=== PATIENT | female | born 1945 ===

== ENCOUNTER 2024-02-25 19:47 | Inpatient (IN) | payer OTHER, SELFPAY ==
[2024-02-25 21:52] VITALS: BP 149/86; PULSE 96; RESP 18; TEMP 36.6; O2SAT 98
[2024-02-25 23:18] VITALS: BMI 22.4
--- NOTE | 2024-02-26 04:37 | PC.ADMIT ---
Patient arrived on unit 02/25/24@2014 with a 12b, patient oriented to person and time of year, irritable, negative, resistive to care but redirectable, she is a 79yo transfer from [facility], d/t not caring for herself and not taking medications at [facility]. patient had been treated twice for lice and showered twice at [facility], they report she had been showering and taking her medications, patient declined shower saying she was dry and itchy and had showered a lot recently. skin check revealed no lice or eggs though patient has cuts, scabs and lesions all over body, 1 x 3/4 lesion on left breast, and an untreated breast mass c/f malignancy, patient was resistive to assessment saying i have a bad memory, why can't you remember that but was able to answer many questions, she reports no providers or contacts, per patient report no Hx ETOH or illicit drugs, is on 5-min safety checks and contracts for safety
[2024-02-26] MEDS: predniSONE 20 MG TABLET 60 MG PO (10:23)
[2024-02-26] MEDS: diphenhydrAMINE HCL 25 MG CAPSULE PO ×3 (10:23→22:09)
--- NOTE | 2024-02-26 11:53 | P.CONHOSP_ITS ---
History of Present Illness Data of Consult Service Date: 02/26/24 Primary Care Provider: Unknown Physician HPI Reason for consult: Admission H&P PMFSH Social History Household Members: Other Household Members Other:: patient homeless Housing: Homeless Do you presently have visiting nurse or other home services: No Patient Tobacco Use Status: Never used Tobacco Smoked in Last 30 Days: No Patient Interested in Nicotine Replacement: No Patient Given Instructions on How to Stop Smoking: No Second Hand Smoke Exposure: No Use of substances other than those prescribed or required for medical reasons: No Currently Displaying Signs/Symptoms of Drug Intoxication Withdrawal: No Any prior treatment program specific to substance use: No Have you been hit, kicked, punched, or otherwise hurt by someone within the past year? If so, by whom?: No Do you feel safe in your current relationship?: No Current Relationship Is there a partner from a previous relationship who is making you feel unsafe now?: No Are you made to feel afraid or neglected: No Spiritual Healthcare Practices: I don't remember anything, I keep telling you this ! Advance Directives: No Advance Directives Information Provided: No Do you have thoughts of harming others: None Do you have a plan to hurt others: No Plan Recently lost weight without trying: Unsure Eating poorly because of decreased appetite: No Nutrition Risks: No Nutritional Risk Patient : No : No Poor oral hygiene: No Meds Allergies Allergy/AdvReac Type Severity Reaction Status Date / Time No Known Allergies Allergy Verified 02/25/24 21:07 Active Medications: Current Medications Acetaminophen (Acetaminophen 325 Mg Tablet) 650 mg PO Q6H PRN PRN Reason: Headache/Pain Mild Scale (1-3) Al Hydroxide/Mg Hydroxide (Magnesium Hydrox/Alum Hydrox 30 Ml Oral.Susp) 30 ml PO Q6H PRN PRN Reason: Heartburn/Nausea Diphenhydramine HCl (Diphenhydramine Hcl 25 Mg Capsule) 25 mg PO Q6H PRN PRN Reason: Itching Last Admin: 02/26/24 10:23 Dose: 25 mg Magnesium Hydroxide (Milk Of Magnesia 30 Ml Oral.Susp) 30 ml PO DAILY PRN PRN Reason: Constipation Nicotine Polacrilex (Nicotine Polacrilex 2 Mg Gum) 4 mg BUCCAL Q2H PRN PRN Reason: Nicotine Cravings Olanzapine (Olanzapine 5 Mg Tablet) 5 mg PO Q4H PRN PRN Reason: agitation Prednisone (Prednisone 20 Mg Tablet) 60 mg PO DAILY [facility] Stop: 02/28/24 09:01 Last Admin: 02/26/24 10:23 Dose: 60 mg Prednisone (Prednisone 20 Mg Tablet) 40 mg PO DAILY [facility] Stop: 03/02/24 09:01 Prednisone (Prednisone 20 Mg Tablet) 20 mg PO DAILY [facility] Stop: 03/05/24 09:01 Trazodone HCl (Trazodone Hcl 50 Mg Tablet) 50 mg PO BEDTIME MRX1 PRN PRN Reason: Insomnia Home Medications ?Medication ?Instructions ?Recorded ?Confirmed ?Last Taken ?Type haloperidol 2 mg tablet 2.5 mg 02/25/24 Unknown History haloperidol 5 mg tablet mg 02/25/24 02/23/24 09:00 History melatonin 5 mg tablet mg 02/25/24 Unknown History Physical Exam Vital Signs and Narrative: Vital Signs: Last Vital Signs Temp 97.9 F 02/25/24 21:52 Pulse 96 02/25/24 21:52 Resp 18 02/25/24 21:52 BP 149/86 H 02/25/24 21:52 Pulse Ox 98 02/25/24 21:52 O2 Del Method Room Air 02/25/24 21:52 BMI result Body Mass Index 22.4 Assessment and Plan Plan Pruritus/rash
--- NOTE | 2024-02-26 13:04 | PHA.MEDREC ---
Pharmacy Consult ? Medication Reconciliation Pharmacy has completed the medication reconciliation. confirmed that pt is on no home medications outpatient
--- NOTE | 2024-02-26 15:13 | P.HPPS_ITS ---
HPI Date of Service: 02/26/24 Chief Complaint: Unspecified Psychotic Disorder Sources of Information: patient interviewed and chart reviewed Additional Sources of Information: Records reviewed from [facility] case discussed with hospitalist consult Patient is seen at 11:00 reviewed with hospitalist at 11:30 02/26/2024 The patient is minimally informational HPI Subjective Notes: [place] Warning and Section 12B Narrative: The patient is a 79-year-old female referred from [facility]. The patient is unwilling to give information will answer to her name the patient reportedly has a history of paranoia and there is a question a neurocognitive disorder. While on the inpatient unit the patient had been ordered Haldol 5 mg daily and 2.5 mg q.6 hours p.r.n. and had also been ordered olanzapine 5 mg dissolvable tablet neither 1 of which was reportedly taken. The patient had been at a care home she has a reported history of a psychotic disorder and also and port of an untreated breast mass with concern for malignancy that has not been treated. She was sent to the hospital [facility] because of inability to care for herself refusing showers with poor appetite refusing medical workup and refusing medication. She was noted to have head and body lice in the community and was brought to the hospital. Her CBC and basic chemistries were generally unremarkable. Patient was referred for inpatient psychiatric treatment secondary to inability to care for self psychotic denial regarding her medical condition. Patient was living in a care home called [facility] and was refusing medical treatment for lice infestation Reportedly patient has not been able to care for herself for an extended period of time in the community has refused any workup of reported breast mass. Some notes state there is history of psychosis questionable history OCD reported vitamin-C deficiency history of mood disorder with psychosis. No reported history of suicide attempts. Questionable history of aggression when at a care home in March. She has been ordered Cogentin and Haldol in the past Past Psychiatric History: Patient with reported history of psychosis no details known. Reported history of multiple psychiatric hospitalizations Medical Evaluation Reviewed: Yes Patient with both hair and body lice despite to permethrin treatments at [facility]. Patient unable and willing to give any information regarding her medical history. Denies any history of breast lesion denies that she has had lice but does accept that she has been having itching. Was prescribed ivermectin which she accepted [facility] Medical History (Updated 02/26/24 @ 20:39 by Fortunato Clayton MD) Unspecified mood [affective] disorder Adult failure to thrive Psychosis Breast mass Family History: Not known Social History: Did state she has a son no other information was given Substance History: Unknown Trauma History: Unknown Diagnostics Vital Signs (24Hr): Vital Signs - 24 hr 02/25/24 21:52 Temperature 97.9 F Pulse Rate 96 Respiratory Rate 18 Blood Pressure 149/86 H Pulse Oximetry 98 Oxygen Delivery Method Room Air BMI result Body Mass Index 22.4 Meds/Allergies Meds Home Medications ?Medication ?Instructions ?Recorded ?Confirmed ?Type No Known Home Meds 02/26/24 02/26/24 History Allergies Allergies Allergy/AdvReac Type Severity Reaction Status Date / Time No Known Allergies Allergy Verified 02/25/24 21:07 Mental Status Exam Mental Status Exam Narrative: Patient seen in her room lying in bed. There multiple excoriations on her lower extremities. She keeps asking this credit underwriter to leave she was aware that she was in a hospital knew the year and the month. She was quite guarded wrapped up in blankets mood appeared depressed her affect was irritable constricted. She was not pressured she would not engage in conversation denied SI or HI denied hallucinations insight significantly impaired denied having any medical issues would not give any narrative history. Would not discuss her medical condition. I did explain to the patient that she had been admitted on a section 12 B she did state she has no psychiatric history she was not aggressive or combative Assessment & Plan Assessment & Plan (1) Unspecified mood [affective] disorder: Status: Acute Code(s): F39 - Unspecified mood [affective] disorder (2) Psychotic affective disorder: Status: Acute Code(s): F39 - Unspecified mood [affective] disorder (3) Adult failure to thrive: Status: Acute Code(s): R62.7 - Adult failure to thrive Plan Patient appears depressed anxious psychotic level of denial regarding her medical condition. Unclear if this is related to a cognitive disorder or more longstanding. She has been prescribed antipsychotics in the past I do not know if she has ever been compliant with treatment. She was no longer able to be managed in the community due to a lack of self-care she was at a women's care home called [facility]. Reportedly the patient may have malignancy that has not been addressed. Further information should be obtained as possible from her PCP and any family or other information as possible. Patient may require a guardian. There is no reported healthcare proxy would benefit from further cognitive workup I do not see a head CT scan or MRI B12 folate TSH reported vitamin-C deficiency. Patient is admitted on a section 12 B will most likely need to file for civil commitment for patient's safety and stabilization. Patient educated on: diagnosis, medication risk/benefits and medical condition Informed Consent: does not understand and further education needed Reason for continued inpatient stay Substantial Risk for: inability to function, rapid decompensation and med/psych decompensation Statement Statement: I have reviewed the history and physical and performed a pertinent examination on my patient. No changes have occurred unless specified. If the History and Physical was not performed prior to admission, the Hospitalist's service will be consulted for completing the admission physical. Medical history reviewed from mass General case reviewed with hospitalist and discussed medical treatment plan 11:30 Time Spent With Patient Time: Total time managing care of this patient today ____ minutes.
--- NOTE | 2024-02-26 17:35 | HO.PM.IMCN ---
History of Present Illness Data of Consult Service Date: 02/26/24 Primary Care Provider: Unknown Physician [facility] Reason for consult: Admission H&P, Lice infestation evaluation Patient is a 79-year-old female with a PMH significant for left breast mass found in 2021 concerning for malignancy which she has refused workup and treatment for, failure to thrive, and longstanding history of psychosis and treatment refusal apparently no known significant PMH who was admitted to [facility] for failure to thrive and inability to take care of herself in the community. Patient had been staying at [facility] and was initially brought to [facility] on a section 12 due to paranoia, irritability, refusing to take a shower for months, and decreased oral intake. Was also noted by outpatient provider to have a lice infestation which she refused treatment for. While at [facility] patient refused all treatment and needed to be physically restrained for labs and for treatment of lice infestation with permethrin 5% lotion that apparently was applied from head to toe. Was supposed to be washed off after 8-14 hours, but patient refused to shower and permethrin application stayed on for around 72 hours. Unclear whether patient received 2nd treatment. Medical consult for admission HPI and reassessment for lice infestation. Patient continues to report all-over body pruritus, unable/unwilling to specify any areas that are better or worse. Patient is a very irritable and recalcitrant during interview and exam, though does show this provider to bugs on her bed clothes that she states causes her to itch. Upon examination these appear to be lice. Patient otherwise has no acute medical complaints and refuses any further evaluation to the point where she begins yelling. Of note, nursing indicates another actively psychotic patient on the unit climbed into the patient's bed earlier in the day for a few minutes. Bedding and patient's clothing have since been changed. Review of Systems Review of Systems: Negative except for that which is stated in the [facility] Medical History (Updated 02/26/24 @ 18:01 by DEMETRIUS Dc) Adult failure to thrive Psychosis Breast mass Social History Household Members: Other Household Members Other:: patient homeless Housing: Homeless Do you presently have visiting nurse or other home services: No Patient Tobacco Use Status: Never used Tobacco Smoked in Last 30 Days: No Patient Interested in Nicotine Replacement: No Patient Given Instructions on How to Stop Smoking: No Second Hand Smoke Exposure: No Use of substances other than those prescribed or required for medical reasons: No Currently Displaying Signs/Symptoms of Drug Intoxication Withdrawal: No Any prior treatment program specific to substance use: No Have you been hit, kicked, punched, or otherwise hurt by someone within the past year? If so, by whom?: No Do you feel safe in your current relationship?: No Current Relationship Is there a partner from a previous relationship who is making you feel unsafe now?: No Are you made to feel afraid or neglected: No Spiritual Healthcare Practices: I don't remember anything, I keep telling you this ! Advance Directives: No Advance Directives Information Provided: No Do you have thoughts of harming others: None Do you have a plan to hurt others: No Plan Recently lost weight without trying: Unsure Eating poorly because of decreased appetite: No Nutrition Risks: No Nutritional Risk Patient : No : No Poor oral hygiene: No Meds Allergies Allergy/AdvReac Type Severity Reaction Status Date / Time No Known Allergies Allergy Verified 02/25/24 21:07 Active Medications: Current Medications Acetaminophen (Acetaminophen 325 Mg Tablet) 650 mg PO Q6H PRN PRN Reason: Headache/Pain Mild Scale (1-3) Al Hydroxide/Mg Hydroxide (Magnesium Hydrox/Alum Hydrox 30 Ml Oral.Susp) 30 ml PO Q6H PRN PRN Reason: Heartburn/Nausea Diphenhydramine HCl (Diphenhydramine Hcl 25 Mg Capsule) 25 mg PO Q6H PRN PRN Reason: Itching Last Admin: 02/26/24 17:05 Dose: 25 mg Ivermectin (Ivermectin 3 Mg Tablet) 9 mg PO ONCE ONE Stop: 03/04/24 09:01 Magnesium Hydroxide (Milk Of Magnesia 30 Ml Oral.Susp) 30 ml PO DAILY PRN PRN Reason: Constipation Nicotine Polacrilex (Nicotine Polacrilex 2 Mg Gum) 4 mg BUCCAL Q2H PRN PRN Reason: Nicotine Cravings Olanzapine (Olanzapine 5 Mg Tablet) 5 mg PO Q4H PRN PRN Reason: agitation Trazodone HCl (Trazodone Hcl 50 Mg Tablet) 50 mg PO BEDTIME MRX1 PRN PRN Reason: Insomnia Home Medications ?Medication ?Instructions ?Recorded ?Confirmed ?Last Taken ?Type No Known Home Meds 02/26/24 02/26/24 Unknown History Physical Exam Vital Signs and Narrative: Vital Signs: Last Vital Signs Temp 97.9 F 02/25/24 21:52 Pulse 96 02/25/24 21:52 Resp 18 02/25/24 21:52 BP 149/86 H 02/25/24 21:52 Pulse Ox 98 02/25/24 21:52 O2 Del Method Room Air 02/25/24 21:52 BMI result Body Mass Index 22.4 Patient is seen resting comfortably in bed where she appears disheveled, unkempt. Breathing unlabored. No acute distress. Cranial nerves 2-12 appear grossly intact bilaterally. Patient refuses full examination. Assessment and Plan (1) Medical clearance for psychiatric admission: Status: Acute Plan Patient is a 79-year-old female with a PMH significant for left breast mass found in 2021 concerning for malignancy which she has refused workup and treatment for, failure to thrive, and longstanding history of psychosis and treatment refusal apparently no known significant PMH who was admitted to [facility] for failure to thrive and inability to take care of herself in the community. Medical consult for admission history and physical. Mood disorder Plan as per Psychiatry Lice infestation 2 adult lice found on the patient while laying in bed Apparently has had a longstanding and extensive lice infestation that she has refused treatment for Was restrained at [facility] where she was treated with permethrin lotion from head to feet, stayed on for 72 hours after patient refused to shower after application Unclear if patient received 2nd dosing Given patient's medication noncompliance, difficulty showering, and need for physical and chemical restraints before applying permethrin lotion, will instead treat patient with ivermectin 9 mg p.o. x1 dose now with another dose to be administered in 1 week Patient should be encouraged to shower and have all bedding and clothing removed, washed, and replaced As for other patient with exposure to patients bed, he should be showered as quickly as possible and have his clothing removed, changed, and laundered Patient should be kept in isolation at this time until can verify no longer actively infested Breast mass Follow up outpatient Patient is otherwise not on any home medications and noncompliant with any treatments. Will sign off for now. Thank you for allowing us to participate in the care of this patient. Please re-consult if any acute issue or need arises.
[2024-02-26 20:00] VITALS: BP 112/57; PULSE 80; RESP 16; TEMP 36.6; O2SAT 98
[2024-02-26] MEDS: traZODone HCL 50 MG TABLET PO (20:11)
[2024-02-26] MEDS: OLANZapine ODT 10 MG TAB.RAPDIS 5 MG TRANSLINGU (22:13)
[2024-02-27] MEDS: Acetaminophen 325 MG TABLET 650 MG PO (00:07)
[2024-02-27] MEDS: traZODone HCL 50 MG TABLET PO (00:08)
[2024-02-27 08:00] VITALS: BP 108/64; PULSE 82; RESP 18; TEMP 36; O2SAT 97
[2024-02-27 08:48] LABS: Alanine Aminotransferase 17 U/L (0-31); Alkaline Phosphatase 61 U/L (39-117); Anion Gap 10 (12-20); Aspartate Amino Transferase 26 U/L (5-31); Bilirubin Total 0.4 mg/dL (0.0-1.0); Blood Urea Nitrogen 23 mg/dL (9-16); Calcium 8.8 mg/dL (8.4-10.2); Carbon Dioxide 27 mmol/L (22-29); Chloride 109 mmol/L (96-108); Cholesterol 181 mg/dL (<200); Creatinine Clr Calc Pharmacy 44.6; Estimated Glomerular Filt Rate > 60; Glucose Fasting 92 mg/dL (60-99); HDL Cholesterol 72 mg/dL (>40); LDL Cholesterol Calculated 95 mg/dL (<100); Potassium 3.7 mmol/L (3.3-5.1); Sodium 142 mmol/L (135-145); Total Protein 7.2 g/dL (6.5-8.0); Triglycerides 72 mg/dL (<150)
--- NOTE | 2024-02-27 10:27 | HO.PSYCHPN ---
Subjective Subjective Date of Service: 02/27/24 Reason For Visit: Unspecified Psychotic Disorder Subjective Notes: Section 12B Healthcare Proxy: No Guardianship: No Medical Problems Affecting Mental Status: No Interim History: Patient remains generally isolated in her rooms she is on contact precautions. She is eating some of her meals very limited in her interaction with others. Continues to deny all symptoms Medication Compliance: No Mental Status Exam Mental Status Exam Narrative: Patient seen in her room she is lying in bed wrapped and covers with her head also being covered. Patient answers in staccato brief answers. She is quite concrete poorly informational guarded. Mood she describes as fine her affect is quite constricted and appears apprehensive and depressed. She denies any psychotic symptoms thoughts of self-harm harm to others. She denies any concerns denies any thoughts or interest in workup regarding reported breast mass lesion. [facility] She will not give further narrative history or any family or other contact information she denies any history of psychiatric illness denies suicidality homicidality auditory hallucinations insight impaired judgment impaired by history impulse control intact Diagnostics Vital Signs (24Hr): Vital Signs - 24 hr 02/26/24 20:00 02/27/24 08:00 Temperature 97.9 F 96.8 F Pulse Rate 80 82 Respiratory Rate 16 18 Blood Pressure 112/57 L 108/64 Pulse Oximetry 98 97 Oxygen Delivery Method Room Air Room Air BMI result Body Mass Index 22.4 Labs 02/27/24 08:24 Labs: Laboratory Results - last 48 hr 02/27/24 08:24 Sodium 142 Potassium 3.7 Chloride 109 H Carbon Dioxide 27 Anion Gap 10 L BUN 23 H Creatinine 0.67 Estim Creat Clear Calc 44.6 Estimated GFR > 60 Fasting Glucose 92 Calcium 8.8 Total Bilirubin 0.4 AST 26 ALT 17 Alkaline Phosphatase 61 Total Protein 7.2 Albumin 4.0 Triglycerides 72 Cholesterol 181 LDL Cholesterol, Calc 95 HDL Cholesterol 72 Medications Medications Current Medications Acetaminophen (Acetaminophen 325 Mg Tablet) 650 mg PO Q6H PRN PRN Reason: Headache/Pain Mild Scale (1-3) Last Admin: 02/27/24 00:07 Dose: 650 mg Al Hydroxide/Mg Hydroxide (Magnesium Hydrox/Alum Hydrox 30 Ml Oral.Susp) 30 ml PO Q6H PRN PRN Reason: Heartburn/Nausea Diphenhydramine HCl (Diphenhydramine Hcl 25 Mg Capsule) 25 mg PO Q6H PRN PRN Reason: Itching Last Admin: 02/26/24 22:09 Dose: 25 mg Ivermectin (Ivermectin 3 Mg Tablet) 9 mg PO ONCE ONE Stop: 03/04/24 09:01 Magnesium Hydroxide (Milk Of Magnesia 30 Ml Oral.Susp) 30 ml PO DAILY PRN PRN Reason: Constipation Nicotine Polacrilex (Nicotine Polacrilex 2 Mg Gum) 4 mg BUCCAL Q2H PRN PRN Reason: Nicotine Cravings Olanzapine (Olanzapine 5 Mg Tablet) 5 mg PO Q4H PRN PRN Reason: agitation Olanzapine (Olanzapine Odt 10 Mg Tab.Rapdis) 5 mg TRANSLINGU BEDTIME HERNESTO Last Admin: 02/26/24 22:13 Dose: 5 mg Trazodone HCl (Trazodone Hcl 50 Mg Tablet) 50 mg PO BEDTIME MRX1 PRN PRN Reason: Insomnia Last Admin: 02/27/24 00:08 Dose: 50 mg Allergies Allergies Allergy/AdvReac Type Severity Reaction Status Date / Time No Known Allergies Allergy Verified 02/25/24 21:07 Assessment & Plan Assessment & Plan (1) Unspecified mood [affective] disorder: Status: Acute Code(s): F39 - Unspecified mood [affective] disorder (2) Psychotic affective disorder: Status: Acute Code(s): F39 - Unspecified mood [affective] disorder (3) Adult failure to thrive: Status: Acute Code(s): R62.7 - Adult failure to thrive Plan Patient appears depressed anxious psychotic level of denial regarding her medical condition. Unclear if this is related to a cognitive disorder or more longstanding. She has been prescribed antipsychotics in the past I do not know if she has ever been compliant with treatment. She was no longer able to be managed in the community due to a lack of self-care she was at a women's skilled nursing called [facility]. Reportedly the patient may have malignancy that has not been addressed. Further information should be obtained as possible from her PCP and any family or other information as possible. Patient may require a guardian. There is no reported healthcare proxy would benefit from further cognitive workup I do not see a head CT scan or MRI B12 folate TSH reported vitamin-C deficiency. Patient is admitted on a section 12 B will most likely need to file for civil commitment for patient's safety and stabilization. 02/27/2024 Patient on section 12 evaluate safety and ability to care for self in the community. Would benefit from getting additional information from PCP from a skilled nursing where reportedly she had refused treatment for lice and was minimally eating and drinking and was quite withdrawn. Patient appears depressed and withdrawn denies any history of psychiatric illness she did accept treatment for lice Monitor food and fluid intake Informed Consent: further education needed Reason for continued inpatient stay Substantial Risk for: inability to function, rapid decompensation and med/psych decompensation Time Spent With Patient Time: Total time managing care of this patient today ____ minutes.
--- NOTE | 2024-02-27 19:27 | PC.NURSE ---
Patient pleasant and cooperative. Contact precautions maintained.
[2024-02-27 20:00] VITALS: BP 112/75; PULSE 84; RESP 18; TEMP 36.6; O2SAT 97
--- NOTE | 2024-02-28 11:10 | PC.NURSE ---
Addendum entered by Nora Zarate RN 02/28/24 11:44: Dr Garcia made aware via tiger text Original Note: Marium is refusing the flu vaccine and all care today including meds and vital signs.
--- NOTE | 2024-02-28 13:56 | P.PNPSI_ITS ---
Subjective Subjective Date of Service: 02/28/24 Reason For Visit: Unspecified Psychotic Disorder Subjective Notes: Section 12B Interim History: The nursing staff reported the patient had body lice and we have seen the parasites on her clothes and bed sheets. Apparently she was already treated at the emergency room of [facility] but still she is symptomatic. The patient reported to the staff that she can not remember how come she in the here. On interview the patient reported that she is feeling itchy. She has refused treatment for her lice and we are discussing the case with administration since we can not force her medical treatment against her will in this setting. Mental Status Exam Mental Status Exam Patient Appearance: Appropriate and Unkempt Patient Orientation: Person and Situation Level of Consciousness: Awake and Appropriate Patient Behavior: Guarded and Passive Mood Description: Withdrawn Affect Description: Constricted Patient Cognition Impaired: Yes Ability to Follow Directions: Fair Speech Pattern: Clear Hallucinations: None Delusions: Not Present Thought Process: Distracted and Slowed Thinking Thought Content: positive for [place] and positive for Poverty of Content Judgement: Fair Diagnostics Vital Signs (24Hr): Vital Signs - 24 hr 02/27/24 20:00 Temperature 97.8 F Pulse Rate 84 Respiratory Rate 18 Blood Pressure 112/75 Pulse Oximetry 97 Oxygen Delivery Method Room Air BMI result Body Mass Index 22.4 Labs 02/27/24 08:24 Labs: Laboratory Results - last 48 hr 02/27/24 08:24 Sodium 142 Potassium 3.7 Chloride 109 H Carbon Dioxide 27 Anion Gap 10 L BUN 23 H Creatinine 0.67 Estim Creat Clear Calc 44.6 Estimated GFR > 60 Fasting Glucose 92 Calcium 8.8 Total Bilirubin 0.4 AST 26 ALT 17 Alkaline Phosphatase 61 Total Protein 7.2 Albumin 4.0 Triglycerides 72 Cholesterol 181 LDL Cholesterol, Calc 95 HDL Cholesterol 72 Medications Medications Current Medications Acetaminophen (Acetaminophen 325 Mg Tablet) 650 mg PO Q6H PRN PRN Reason: Headache/Pain Mild Scale (1-3) Last Admin: 02/27/24 00:07 Dose: 650 mg Al Hydroxide/Mg Hydroxide (Magnesium Hydrox/Alum Hydrox 30 Ml Oral.Susp) 30 ml PO Q6H PRN PRN Reason: Heartburn/Nausea Diphenhydramine HCl (Diphenhydramine Hcl 25 Mg Capsule) 25 mg PO Q6H PRN PRN Reason: Itching Last Admin: 02/26/24 22:09 Dose: 25 mg Ivermectin (Ivermectin 3 Mg Tablet) 9 mg PO ONCE ONE Stop: 03/04/24 09:01 Magnesium Hydroxide (Milk Of Magnesia 30 Ml Oral.Susp) 30 ml PO DAILY PRN PRN Reason: Constipation Nicotine Polacrilex (Nicotine Polacrilex 2 Mg Gum) 4 mg BUCCAL Q2H PRN PRN Reason: Nicotine Cravings Olanzapine (Olanzapine 5 Mg Tablet) 5 mg PO Q4H PRN PRN Reason: agitation Olanzapine (Olanzapine Odt 10 Mg Tab.Rapdis) 5 mg TRANSLINGU BEDTIME HERNESTO Last Admin: 02/27/24 20:12 Dose: Not Given Trazodone HCl (Trazodone Hcl 50 Mg Tablet) 50 mg PO BEDTIME MRX1 PRN PRN Reason: Insomnia Last Admin: 02/27/24 00:08 Dose: 50 mg Allergies Allergies Allergy/AdvReac Type Severity Reaction Status Date / Time No Known Allergies Allergy Verified 02/25/24 21:07 Assessment & Plan Assessment & Plan (1) Unspecified mood [affective] disorder: Status: Acute Code(s): F39 - Unspecified mood [affective] disorder (2) Psychotic affective disorder: Status: Acute Code(s): F39 - Unspecified mood [affective] disorder (3) Adult failure to thrive: Status: Acute Code(s): R62.7 - Adult failure to thrive Plan Patient appears depressed anxious psychotic level of denial regarding her medical condition. Unclear if this is related to a cognitive disorder or more longstanding. She has been prescribed antipsychotics in the past I do not know if she has ever been compliant with treatment. She was no longer able to be managed in the community due to a lack of self-care she was at a [facility] called [facility]. Reportedly the patient may have malignancy that has not been addressed. Further information should be obtained as possible from her PCP and any family or other information as possible. Patient may require a guardian. There is no reported healthcare proxy would benefit from further cognitive workup I do not see a head CT scan or MRI B12 folate TSH reported vitamin-C deficiency. Patient is admitted on a section 12 B will most likely need to file for civil commitment for patient's safety and stabilization. 02/27/2024 Patient on section 12 evaluate safety and ability to care for self in the community. Would benefit from getting additional information from PCP from a prison where reportedly she had refused treatment for lice and was minimally eating and drinking and was quite withdrawn. Patient appears depressed and withdrawn denies any history of psychiatric illness she did accept treatment for lice Monitor food and fluid intake. 02/27 We discussed the case with infectious control with treatment about her lies. The patient has refused treatment at this moment. Reason for continued inpatient stay Substantial Risk for: inability to function, rapid decompensation and med/psych decompensation Time Spent With Patient Time: Total time managing care of this patient today __20__ minutes.
[2024-02-28] MEDS: diphenhydrAMINE HCL 25 MG CAPSULE PO (14:01)
[2024-02-28 20:00] VITALS: BP 134/71; PULSE 92; RESP 16; TEMP 36.7; O2SAT 96
[2024-02-28] MEDS: OLANZapine ODT 10 MG TAB.RAPDIS 5 MG TRANSLINGU (20:50)
[2024-02-29] MEDS: diphenhydrAMINE HCL 25 MG CAPSULE PO (15:13)
--- NOTE | 2024-02-29 15:14 | PC.NURSE ---
Patient requested a pill for itch, she will not take the prescribed cream because she is allergic to all chemicals she said. dr. Garcia updated and new order for Benadryl obtained and given.
--- NOTE | 2024-02-29 16:08 | HO.PSYCHPN ---
Subjective Subjective Date of Service: 02/29/24 Reason For Visit: Unspecified Psychotic Disorder Subjective Notes: Section 12B Interim History: The nursing staff reported the patient took Benadryl p.r.n.. She had been noncompliant with all other medications she is confused and asking for paperwork to filed her taxes for [employer] [place]. She was paranoid against the social research assistant. Today we came with the staff who can speak Farsi and apparently the patient reported that she has been itchy, she was able to contract for safety. The occupational therapist engaged on some one-to-one and apparently the patient is more pleasant and cooperative. Even though we are going to filed for Section 7 and 8. She has body lice, she was been already treated but apparently we have to wait up to 7 days the parasites fell off from her. She is willing to take a shower here according to the staff who speaks Farsi Mental Status Exam Mental Status Exam Patient Appearance: Appropriate Patient Orientation: Person and Situation Level of Consciousness: Awake and Appropriate Patient Behavior: Guarded and Passive Mood Description: Withdrawn Affect Description: Constricted Patient Cognition Impaired: Yes Ability to Follow Directions: Good Speech Pattern: Clear Hallucinations: Auditory Delusions: Ideas of Reference Thought Process: Distracted and Slowed Thinking Thought Content: positive for [place] and positive for Poverty of Content Judgement: Fair Diagnostics Vital Signs (24Hr): Vital Signs - 24 hr 02/28/24 20:00 Temperature 98.1 F Pulse Rate 92 Respiratory Rate 16 Blood Pressure 134/71 Pulse Oximetry 96 Oxygen Delivery Method Room Air BMI result Body Mass Index 22.4 Labs 02/27/24 08:24 Medications Medications Current Medications Acetaminophen (Acetaminophen 325 Mg Tablet) 650 mg PO Q6H PRN PRN Reason: Headache/Pain Mild Scale (1-3) Last Admin: 02/27/24 00:07 Dose: 650 mg Al Hydroxide/Mg Hydroxide (Magnesium Hydrox/Alum Hydrox 30 Ml Oral.Susp) 30 ml PO Q6H PRN PRN Reason: Heartburn/Nausea Diphenhydramine HCl (Diphenhydramine Hcl 25 Mg Capsule) 25 mg PO Q4H PRN PRN Reason: Itching Last Admin: 02/29/24 15:13 Dose: 25 mg Ivermectin (Ivermectin 3 Mg Tablet) 9 mg PO ONCE ONE Stop: 03/04/24 09:01 Magnesium Hydroxide (Milk Of Magnesia 30 Ml Oral.Susp) 30 ml PO DAILY PRN PRN Reason: Constipation Multi-Ingred Cream/Lotion/Oil/Oint (Mineral Oil/Petrolatum,White 106 Gm Tube) 1 appl TOPICAL Q2H PRN; Protocol PRN Reason: affected areas of dry skin Nicotine Polacrilex (Nicotine Polacrilex 2 Mg Gum) 4 mg BUCCAL Q2H PRN PRN Reason: Nicotine Cravings Olanzapine (Olanzapine 5 Mg Tablet) 5 mg PO Q4H PRN PRN Reason: agitation Olanzapine (Olanzapine Odt 10 Mg Tab.Rapdis) 5 mg TRANSLINGU BEDTIME HERNESTO Last Admin: 02/28/24 20:50 Dose: 5 mg Trazodone HCl (Trazodone Hcl 50 Mg Tablet) 50 mg PO BEDTIME MRX1 PRN PRN Reason: Insomnia Last Admin: 02/27/24 00:08 Dose: 50 mg Allergies Allergies Allergy/AdvReac Type Severity Reaction Status Date / Time No Known Allergies Allergy Verified 02/25/24 21:07 Assessment & Plan Assessment & Plan (1) Unspecified mood [affective] disorder: Status: Acute Code(s): F39 - Unspecified mood [affective] disorder (2) Psychotic affective disorder: Status: Acute Code(s): F39 - Unspecified mood [affective] disorder (3) Adult failure to thrive: Status: Acute Code(s): R62.7 - Adult failure to thrive Plan Patient appears depressed anxious psychotic level of denial regarding her medical condition. Unclear if this is related to a cognitive disorder or more longstanding. She has been prescribed antipsychotics in the past I do not know if she has ever been compliant with treatment. She was no longer able to be managed in the community due to a lack of self-care she was at a women's senior care called [facility]. Reportedly the patient may have malignancy that has not been addressed. Further information should be obtained as possible from her PCP and any family or other information as possible. Patient may require a guardian. There is no reported healthcare proxy would benefit from further cognitive workup I do not see a head CT scan or MRI B12 folate TSH reported vitamin-C deficiency. Patient is admitted on a section 12 B will most likely need to file for civil commitment for patient's safety and stabilization. 02/27/2024 Patient on section 12 evaluate safety and ability to care for self in the community. Would benefit from getting additional information from PCP from a senior care where reportedly she had refused treatment for lice and was minimally eating and drinking and was quite withdrawn. Patient appears depressed and withdrawn denies any history of psychiatric illness she did accept treatment for lice Monitor food and fluid intake. 02/27 We discussed the case with infectious control with treatment about her lies. The patient has refused treatment at this moment. 02/28 we will continue with same treatment, we are going to filed for Section 7 and 8 since the patient can not verbalize her needs. Reason for continued inpatient stay Substantial Risk for: inability to function, rapid decompensation and med/psych decompensation Time Spent With Patient Time: Total time managing care of this patient today ___20_ minutes.
[2024-02-29 20:00] VITALS: BP 106/58; PULSE 73; RESP 16; TEMP 36.4; O2SAT 97
[2024-02-29] MEDS: OLANZapine ODT 10 MG TAB.RAPDIS 5 MG TRANSLINGU (20:41)
[2024-03-01 08:15] VITALS: BP 106/64; PULSE 91; RESP 20; TEMP 36.8; O2SAT 98
--- NOTE | 2024-03-01 11:50 | P.PNPSI_ITS ---
Subjective Subjective Date of Service: 03/01/24 Reason For Visit: Unspecified Psychotic Disorder Subjective Notes: Conditional Voluntary Interim History: The nursing staff reported the patient had been seclusive in her room, with blunted affect she ate 75% of her dinner refused vital signs she had been very quiet. On interview the patient agreed to sign a conditional voluntary. She agreed to use permethrin and showered later in the day. Mental Status Exam Mental Status Exam Patient Appearance: Disheveled and Unkempt Patient Orientation: Person Level of Consciousness: Inappropriate Patient Behavior: Guarded Mood Description: Withdrawn Affect Description: Blunted Patient Cognition Impaired: Yes Ability to Follow Directions: Fair Speech Pattern: Clear Hallucinations: None Delusions: Paranoid Ideation and Ideas of Reference Thought Process: Illogical and Slowed Thinking Thought Content: positive for [place] and positive for Thought Blocking Judgement: Poor Diagnostics Vital Signs (24Hr): Vital Signs - 24 hr 02/29/24 20:00 03/01/24 08:15 Temperature 97.6 F 98.2 F Pulse Rate 73 91 Respiratory Rate 16 20 Blood Pressure 106/58 L 106/64 Pulse Oximetry 97 98 Oxygen Delivery Method Room Air Room Air BMI result Body Mass Index 22.4 Labs 02/27/24 08:24 Medications Medications Current Medications Acetaminophen (Acetaminophen 325 Mg Tablet) 650 mg PO Q6H PRN PRN Reason: Headache/Pain Mild Scale (1-3) Last Admin: 02/27/24 00:07 Dose: 650 mg Al Hydroxide/Mg Hydroxide (Magnesium Hydrox/Alum Hydrox 30 Ml Oral.Susp) 30 ml PO Q6H PRN PRN Reason: Heartburn/Nausea Diphenhydramine HCl (Diphenhydramine Hcl 25 Mg Capsule) 25 mg PO Q4H PRN PRN Reason: Itching Last Admin: 02/29/24 15:13 Dose: 25 mg Ivermectin (Ivermectin 3 Mg Tablet) 9 mg PO ONCE ONE Stop: 03/04/24 09:01 Magnesium Hydroxide (Milk Of Magnesia 30 Ml Oral.Susp) 30 ml PO DAILY PRN PRN Reason: Constipation Multi-Ingred Cream/Lotion/Oil/Oint (Mineral Oil/Petrolatum,White 106 Gm Tube) 1 appl TOPICAL Q2H PRN; Protocol PRN Reason: affected areas of dry skin Nicotine Polacrilex (Nicotine Polacrilex 2 Mg Gum) 4 mg BUCCAL Q2H PRN PRN Reason: Nicotine Cravings Olanzapine (Olanzapine 5 Mg Tablet) 5 mg PO Q4H PRN PRN Reason: agitation Olanzapine (Olanzapine Odt 10 Mg Tab.Rapdis) 5 mg TRANSLINGU BEDTIME HERNESTO Last Admin: 02/29/24 20:41 Dose: 5 mg Trazodone HCl (Trazodone Hcl 50 Mg Tablet) 50 mg PO BEDTIME MRX1 PRN PRN Reason: Insomnia Last Admin: 02/27/24 00:08 Dose: 50 mg Allergies Allergies Allergy/AdvReac Type Severity Reaction Status Date / Time No Known Allergies Allergy Verified 02/25/24 21:07 Assessment & Plan Assessment & Plan (1) Unspecified mood [affective] disorder: Status: Acute Code(s): F39 - Unspecified mood [affective] disorder (2) Psychotic affective disorder: Status: Acute Code(s): F39 - Unspecified mood [affective] disorder (3) Adult failure to thrive: Status: Acute Code(s): R62.7 - Adult failure to thrive Plan Patient appears depressed anxious psychotic level of denial regarding her medical condition. Unclear if this is related to a cognitive disorder or more longstanding. She has been prescribed antipsychotics in the past I do not know if she has ever been compliant with treatment. She was no longer able to be managed in the community due to a lack of self-care she was at a women's longterm called [facility]. Reportedly the patient may have malignancy that has not been addressed. Further information should be obtained as possible from her PCP and any family or other information as possible. Patient may require a guardian. There is no reported healthcare proxy would benefit from further cognitive workup I do not see a head CT scan or MRI B12 folate TSH reported vitamin-C deficiency. Patient is admitted on a section 12 B will most likely need to file for civil commitment for patient's safety and stabilization. 02/27/2024 Patient on section 12 evaluate safety and ability to care for self in the community. Would benefit from getting additional information from PCP from a longterm where reportedly she had refused treatment for lice and was minimally eating and drinking and was quite withdrawn. Patient appears depressed and withdrawn denies any history of psychiatric illness she did accept treatment for lice Monitor food and fluid intake. 02/27 We discussed the case with infectious control with treatment about her lies. The patient has refused treatment at this moment. 02/28 we will continue with same treatment, we are going to filed for Section 7 and 8 since the patient can not verbalize her needs. she agreed to sign conditional voluntary. We will try to use permethrin treating now. Reason for continued inpatient stay Substantial Risk for: inability to function, rapid decompensation and med/psych decompensation Time Spent With Patient Time: Total time managing care of this patient today __20__ minutes.
[2024-03-01] MEDS: Permethrin 1 % Lotion 59 ML BTL 1 APPL TOPICAL (16:00)
[2024-03-01 20:00] VITALS: BP 107/65; PULSE 85; RESP 18; TEMP 36.7; O2SAT 97
[2024-03-01] MEDS: traZODone HCL 50 MG TABLET PO (20:53)
[2024-03-01] MEDS: OLANZapine ODT 10 MG TAB.RAPDIS 5 MG TRANSLINGU (20:53)
[2024-03-01] MEDS: diphenhydrAMINE HCL 25 MG CAPSULE PO (20:53)
[2024-03-02 07:00] VITALS: BMI 23.9
[2024-03-02 08:00] VITALS: BP 143/67; PULSE 78; RESP 18; TEMP 36; O2SAT 99
--- NOTE | 2024-03-02 12:24 | HO.WOUND ---
Wound Consult: Attempted 79yr old? female admitted to [facility] on 02/25/24 19:47 to the Geriatric Behavioral Health Unit - See progress notes and H&P for detailed history.? Wound consult placed for Left Breast wound present admission.?Arrival to unit and bedside with direct care nurse Ivana, the patient refused all assessment. She reports there was no injury and did not need my consultation. Therapeutic listening provided and reattempt to assess skin and provide help and aid. She began to get frustrated and refused all assessment, when asked to reassess at future time she refused. Direct care nurse and unit Clinical leader aware of refusal. Will attempt assessment early next week.
--- NOTE | 2024-03-02 13:20 | HO.PSYCHPN ---
Subjective Subjective Date of Service: 03/02/24 Reason For Visit: Unspecified Psychotic Disorder Subjective Notes: Conditional Voluntary Interim History: The nursing staff reported the patient cooperate very limited yesterday with the permethrin and the shower she is infested with lice and she is not allowing us to treat her. She has very poor insight into her condition. The social work assistant reported that we are going to try to get more collateral information, most likely she has a guardian or [facility] involvement and clear. On interview the patient refused to engage. I contact Dr. Thibodeaux and she reported that the patient had been receiving the optimal treatment for this condition. The social work assistant was able to contact [facility] and they do not have guardianship role years. Apparently she responded fairly well to Haldol so we are changing that today. Mental Status Exam Mental Status Exam Patient Appearance: Disheveled and Unkempt Patient Orientation: Person Level of Consciousness: Awake Patient Behavior: Guarded Mood Description: Withdrawn Affect Description: Blunted Patient Cognition Impaired: Yes Ability to Follow Directions: Poor Speech Pattern: Clear Hallucinations: Auditory Delusions: Paranoid Ideation and Ideas of Reference Thought Process: Distracted and Slowed Thinking Thought Content: positive for [place] and positive for Poverty of Content Judgement: Poor Diagnostics Vital Signs (24Hr): Vital Signs - 24 hr 03/01/24 20:00 03/02/24 08:00 Temperature 98.1 F 96.8 F Pulse Rate 85 78 Respiratory Rate 18 18 Blood Pressure 107/65 143/67 H Pulse Oximetry 97 99 Oxygen Delivery Method Room Air Room Air BMI result Body Mass Index 23.9 Labs 02/27/24 08:24 Medications Medications Current Medications Acetaminophen (Acetaminophen 325 Mg Tablet) 650 mg PO Q6H PRN PRN Reason: Headache/Pain Mild Scale (1-3) Last Admin: 02/27/24 00:07 Dose: 650 mg Al Hydroxide/Mg Hydroxide (Magnesium Hydrox/Alum Hydrox 30 Ml Oral.Susp) 30 ml PO Q6H PRN PRN Reason: Heartburn/Nausea Diphenhydramine HCl (Diphenhydramine Hcl 25 Mg Capsule) 25 mg PO Q4H PRN PRN Reason: Itching Last Admin: 03/01/24 20:53 Dose: 25 mg Ivermectin (Ivermectin 3 Mg Tablet) 9 mg PO ONCE ONE Stop: 03/04/24 09:01 Magnesium Hydroxide (Milk Of Magnesia 30 Ml Oral.Susp) 30 ml PO DAILY PRN PRN Reason: Constipation Multi-Ingred Cream/Lotion/Oil/Oint (Mineral Oil/Petrolatum,White 106 Gm Tube) 1 appl TOPICAL Q2H PRN; Protocol PRN Reason: affected areas of dry skin Nicotine Polacrilex (Nicotine Polacrilex 2 Mg Gum) 4 mg BUCCAL Q2H PRN PRN Reason: Nicotine Cravings Olanzapine (Olanzapine 5 Mg Tablet) 5 mg PO Q4H PRN PRN Reason: agitation Olanzapine (Olanzapine Odt 10 Mg Tab.Rapdis) 5 mg TRANSLINGU BEDTIME HERNESTO Last Admin: 03/01/24 20:53 Dose: 5 mg Trazodone HCl (Trazodone Hcl 50 Mg Tablet) 50 mg PO BEDTIME MRX1 PRN PRN Reason: Insomnia Last Admin: 03/01/24 20:53 Dose: 50 mg Allergies Allergies Allergy/AdvReac Type Severity Reaction Status Date / Time No Known Allergies Allergy Verified 02/25/24 21:07 Assessment & Plan Assessment & Plan (1) Unspecified mood [affective] disorder: Status: Acute Code(s): F39 - Unspecified mood [affective] disorder (2) Psychotic affective disorder: Status: Acute Code(s): F39 - Unspecified mood [affective] disorder (3) Adult failure to thrive: Status: Acute Code(s): R62.7 - Adult failure to thrive Plan Patient appears depressed anxious psychotic level of denial regarding her medical condition. Unclear if this is related to a cognitive disorder or more longstanding. She has been prescribed antipsychotics in the past I do not know if she has ever been compliant with treatment. She was no longer able to be managed in the community due to a lack of self-care she was at a women's [facility] called [facility]. Reportedly the patient may have malignancy that has not been addressed. Further information should be obtained as possible from her PCP and any family or other information as possible. Patient may require a guardian. There is no reported healthcare proxy would benefit from further cognitive workup I do not see a head CT scan or MRI B12 folate TSH reported vitamin-C deficiency. Patient is admitted on a section 12 B will most likely need to file for civil commitment for patient's safety and stabilization. 02/27/2024 Patient on section 12 evaluate safety and ability to care for self in the community. Would benefit from getting additional information from PCP from a [facility] where reportedly she had refused treatment for lice and was minimally eating and drinking and was quite withdrawn. Patient appears depressed and withdrawn denies any history of psychiatric illness she did accept treatment for lice Monitor food and fluid intake. 02/27 We discussed the case with infectious control with treatment about her lies. The patient has refused treatment at this moment. 02/28 we will continue with same treatment, we are going to filed for Section 7 and 8 since the patient can not verbalize her needs. she agreed to sign conditional voluntary. We will try to use permethrin treating now. 03/[address] Terell funez for treatment options of lice. The social work assistant was able to contact [facility] and apparently she responded fairly well to Haldol so we are going to discontinue Zyprexa and start Haldol 5 p.o. q.h.s. today Reason for continued inpatient stay Substantial Risk for: inability to function, rapid decompensation and med/psych decompensation Time Spent With Patient Time: Total time managing care of this patient today _20___ minutes.
[2024-03-02] MEDS: diphenhydrAMINE HCL 25 MG CAPSULE PO (17:00)
[2024-03-02 20:00] VITALS: BP 130/68; PULSE 76; RESP 18; TEMP 36.6; O2SAT 98
[2024-03-02] MEDS: traZODone HCL 50 MG TABLET PO (20:39)
[2024-03-02] MEDS: HaloperidoL 5 MG TABLET PO (20:39)
--- NOTE | 2024-03-03 07:45 | HO.PSYCHPN ---
Subjective Subjective Date of Service: 03/03/24 Reason For Visit: Unspecified Psychotic Disorder Subjective Notes: Conditional Voluntary Interim History: The patient remains in her room due to lice infestation. She complains of itching is but she has refused the use of Benadryl or other medications. Yesterday we have consulted with Infectious diseases MD, Dr. Figueredo and she told me that we are doing everything that it is according to protocol. At this moment there is no other interventions. On interview the patient remains seclusive, psychotic. Yesterday the vp digital marketing social media and crm contact [facility] staff who knows the patient and apparently she responds fairly well to Haldol so we decided to change Zyprexa to Haldol. According to the nursing staff she was compliant with her medication yesterday. We are going to add a 2nd dose of Haldol of 2 mg in the morning. Mental Status Exam Mental Status Exam Patient Appearance: Appropriate Patient Orientation: Person Level of Consciousness: Awake and Appropriate Patient Behavior: Guarded Mood Description: Withdrawn Affect Description: Blunted Patient Cognition Impaired: Yes Ability to Follow Directions: Fair Speech Pattern: Clear Hallucinations: Auditory Delusions: Paranoid Ideation and Ideas of Reference Thought Process: Distracted and Slowed Thinking Thought Content: positive for [place] and positive for [place] of Content Judgement: Poor Diagnostics Vital Signs (24Hr): Vital Signs - 24 hr 03/02/24 08:00 03/02/24 20:00 Temperature 96.8 F 97.8 F Pulse Rate 78 76 Respiratory Rate 18 18 Blood Pressure 143/67 H 130/68 Pulse Oximetry 99 98 Oxygen Delivery Method Room Air Room Air BMI result Body Mass Index 23.9 Labs 02/27/24 08:24 Medications Medications Current Medications Acetaminophen (Acetaminophen 325 Mg Tablet) 650 mg PO Q6H PRN PRN Reason: Headache/Pain Mild Scale (1-3) Last Admin: 02/27/24 00:07 Dose: 650 mg Al Hydroxide/Mg Hydroxide (Magnesium Hydrox/Alum Hydrox 30 Ml Oral.Susp) 30 ml PO Q6H PRN PRN Reason: Heartburn/Nausea Diphenhydramine HCl (Diphenhydramine Hcl 25 Mg Capsule) 25 mg PO Q4H PRN PRN Reason: Itching Last Admin: 03/02/24 17:00 Dose: 25 mg Haloperidol (Haloperidol 5 Mg Tablet) 5 mg PO BEDTIME HERNESTO Last Admin: 03/02/24 20:39 Dose: 5 mg Ivermectin (Ivermectin 3 Mg Tablet) 9 mg PO ONCE ONE Stop: 03/04/24 09:01 Magnesium Hydroxide (Milk Of Magnesia 30 Ml Oral.Susp) 30 ml PO DAILY PRN PRN Reason: Constipation Multi-Ingred Cream/Lotion/Oil/Oint (Mineral Oil/Petrolatum,White 106 Gm Tube) 1 appl TOPICAL Q2H PRN; Protocol PRN Reason: affected areas of dry skin Nicotine Polacrilex (Nicotine Polacrilex 2 Mg Gum) 4 mg BUCCAL Q2H PRN PRN Reason: Nicotine Cravings Olanzapine (Olanzapine 5 Mg Tablet) 5 mg PO Q4H PRN PRN Reason: agitation Trazodone HCl (Trazodone Hcl 50 Mg Tablet) 50 mg PO BEDTIME MRX1 PRN PRN Reason: Insomnia Last Admin: 03/02/24 20:39 Dose: 50 mg Allergies Allergies Allergy/AdvReac Type Severity Reaction Status Date / Time No Known Allergies Allergy Verified 02/25/24 21:07 Assessment & Plan Assessment & Plan (1) Unspecified mood [affective] disorder: Status: Acute Code(s): F39 - Unspecified mood [affective] disorder (2) Psychotic affective disorder: Status: Acute Code(s): F39 - Unspecified mood [affective] disorder (3) Adult failure to thrive: Status: Acute Code(s): R62.7 - Adult failure to thrive Plan Patient appears depressed anxious psychotic level of denial regarding her medical condition. Unclear if this is related to a cognitive disorder or more longstanding. She has been prescribed antipsychotics in the past I do not know if she has ever been compliant with treatment. She was no longer able to be managed in the community due to a lack of self-care she was at a women's custodial called [facility]. Reportedly the patient may have malignancy that has not been addressed. Further information should be obtained as possible from her PCP and any family or other information as possible. Patient may require a guardian. There is no reported healthcare proxy would benefit from further cognitive workup I do not see a head CT scan or MRI B12 folate TSH reported vitamin-C deficiency. Patient is admitted on a section 12 B will most likely need to file for civil commitment for patient's safety and stabilization. 02/27/2024 Patient on section 12 evaluate safety and ability to care for self in the community. Would benefit from getting additional information from PCP from a custodial where reportedly she had refused treatment for lice and was minimally eating and drinking and was quite withdrawn. Patient appears depressed and withdrawn denies any history of psychiatric illness she did accept treatment for lice Monitor food and fluid intake. 02/27 We discussed the case with infectious control with treatment about her lies. The patient has refused treatment at this moment. 02/28 we will continue with same treatment, we are going to filed for Section 7 and 8 since the patient can not verbalize her needs. she agreed to sign conditional voluntary. We will try to use permethrin treating now. 03/[address] Terell funez for treatment options of lice. The vp digital marketing social media and crm was able to contact [facility] and apparently she responded fairly well to Haldol so we are going to discontinue Zyprexa and start Haldol 5 p.o. q.h.s. today. 03/03 the patient remains on isolation due to lice infestation. She has refused to collaborate with treatment about lies, at this moment we are involving senior management since she is a risk for other patients in the unit. We are increasing Haldol up to 2 mg p.o. q.a.m. and keep 5 mg p.o. q.h.s.. Reason for continued inpatient stay Substantial Risk for: inability to function, rapid decompensation and med/psych decompensation Time Spent With Patient Time: Total time managing care of this patient today __20__ minutes.
[2024-03-03] MEDS: HaloperidoL 1 MG TABLET 2 MG PO (10:38)
[2024-03-03 20:00] VITALS: BP 108/67; PULSE 100; TEMP 36.1; O2SAT 97
[2024-03-03] MEDS: HaloperidoL 5 MG TABLET PO (20:00)
[2024-03-03] MEDS: diphenhydrAMINE HCL 25 MG CAPSULE PO (20:44)
--- NOTE | 2024-03-03 22:04 | P.CNID_ITS ---
History of Present Illness Data of Consult Service Date: 03/03/24 Requesting physician: Justin Garcia Primary Care Provider: Unknown Physician HPI Reason for consult: reported lice infestation She presents with complaints of itching and lice She has no fever or chills. She has been to [facility] and treated with permethrin and ivermectin. She has reported body and hair lice. Review of Systems 2 Review of Systems: Yes all other systems are reviewed and are negative PMFSH Past Medical History Medical History Unspecified mood [affective] disorder Adult failure to thrive Psychosis Breast mass Family History Family history: reviewed and not pertinent Social History Social History Household Members: Other Household Members Other:: patient homeless Housing: Homeless Do you presently have visiting nurse or other home services: No Patient Tobacco Use Status: Never used Tobacco Smoked in Last 30 Days: No Patient Interested in Nicotine Replacement: No Patient Given Instructions on How to Stop Smoking: No Second Hand Smoke Exposure: No Use of substances other than those prescribed or required for medical reasons: No Currently Displaying Signs/Symptoms of Drug Intoxication Withdrawal: No Any prior treatment program specific to substance use: No Have you been hit, kicked, punched, or otherwise hurt by someone within the past year? If so, by whom?: No Do you feel safe in your current relationship?: No Current Relationship Is there a partner from a previous relationship who is making you feel unsafe now?: No Are you made to feel afraid or neglected: No Spiritual Healthcare Practices: I don't remember anything, I keep telling you this ! Advance Directives: No Advance Directives Information Provided: No Do you have thoughts of harming others: None Do you have a plan to hurt others: No Plan Recently lost weight without trying: Unsure Eating poorly because of decreased appetite: No Nutrition Risks: No Nutritional Risk Patient : No : No Poor oral hygiene: No service: No Sexual orientation: Unable to collect Meds Allergies Allergy/AdvReac Type Severity Reaction Status Date / Time No Known Allergies Allergy Verified 02/25/24 21:07 Active Medications: Current Medications Acetaminophen (Acetaminophen 325 Mg Tablet) 650 mg PO Q6H PRN PRN Reason: Headache/Pain Mild Scale (1-3) Last Admin: 02/27/24 00:07 Dose: 650 mg Al Hydroxide/Mg Hydroxide (Magnesium Hydrox/Alum Hydrox 30 Ml Oral.Susp) 30 ml PO Q6H PRN PRN Reason: Heartburn/Nausea Diphenhydramine HCl (Diphenhydramine Hcl 25 Mg Capsule) 25 mg PO Q4H PRN PRN Reason: Itching Last Admin: 03/03/24 20:44 Dose: 25 mg Haloperidol (Haloperidol 5 Mg Tablet) 5 mg PO BEDTIME HERNESTO Last Admin: 03/03/24 20:00 Dose: 5 mg Haloperidol (Haloperidol 1 Mg Tablet) 2 mg PO DAILY HERNESTO Last Admin: 03/03/24 10:38 Dose: 2 mg Ivermectin (Ivermectin 3 Mg Tablet) 9 mg PO ONCE ONE Stop: 03/04/24 09:01 Magnesium Hydroxide (Milk Of Magnesia 30 Ml Oral.Susp) 30 ml PO DAILY PRN PRN Reason: Constipation Multi-Ingred Cream/Lotion/Oil/Oint (Mineral Oil/Petrolatum,White 106 Gm Tube) 1 appl TOPICAL Q2H PRN; Protocol PRN Reason: affected areas of dry skin Nicotine Polacrilex (Nicotine Polacrilex 2 Mg Gum) 4 mg BUCCAL Q2H PRN PRN Reason: Nicotine Cravings Olanzapine (Olanzapine 5 Mg Tablet) 5 mg PO Q4H PRN PRN Reason: agitation Trazodone HCl (Trazodone Hcl 50 Mg Tablet) 50 mg PO BEDTIME MRX1 PRN PRN Reason: Insomnia Last Admin: 03/02/24 20:39 Dose: 50 mg Home Medications ?Medication ?Instructions ?Recorded ?Confirmed ?Last Taken ?Type No Known Home Meds 02/26/24 02/26/24 Unknown History Physical Exam 2 Vital Signs: Vital Signs: Last Vital Signs Temp 97.8 F 03/02/24 20:00 Pulse 76 03/02/24 20:00 Resp 18 03/02/24 20:00 BP 130/68 03/02/24 20:00 Pulse Ox 98 03/02/24 20:00 O2 Del Method Room Air 03/02/24 20:00 BMI result Body Mass Index 23.9 Const: General: cooperative HEENT: Head: Yes normal to inspection Face and sinus: Yes normal facial exam Mouth: Normal oral and palatal mucosa present Teeth and gingiva: d entition normal Eyes: General: appearance normal, both eyes and all related structures P upils: Equal, round and reactive pupils present Resp: Effort & Inspection: normal respiratory effort Cardio: Rate: regular rate Rhythm: regular rhythm GI: Palpation (GI): Soft to palpation and nontender : General: Yes no CVA tenderness Back/Spine/Pelvis: Back: no CVA tenderness Skin: Other: hair net on declines observation Neuro: General: moves all extremities Cranial nerves: Yes Equal, round and reactive pupils present Extrem: General: Yes normal to inspection Psych: Appearance: grossly normal Results Labs 02/27/24 08:24 Assessment and Plan (1) Psychotic affective disorder: Status: Acute Plan She has alleged lice,she wont allow exam. Agree with another dose Permethrin. Hopefully she will allow hygiene measures such as hair washing, Consider check HIV test.
[2024-03-04] MEDS: diphenhydrAMINE HCL 25 MG CAPSULE PO ×3 (04:13→20:48)
--- NOTE | 2024-03-04 08:01 | HO.PSYCHPN ---
Subjective Subjective Date of Service: 03/04/24 Reason For Visit: Unspecified Psychotic Disorder Interim History: Has been compliant with medications. Limited self-care. Some difficulty adhering to precautions around head lice. With senior grant writer, irritable. Seen in room. Would not engage with senior grant writer. Told senior grant writer to come back and make an appointment. Did report that she felt safe, but then would not answer any further questions. Medication Compliance: Yes Side effects from medications: No Attending Groups: No Review of Systems Acute medical concerns: No Review of Systems Review of Systems contact precautions for head lice Yes all other systems are reviewed and are negative Mental Status Exam Mental Status Exam Narrative: Limited self-care. Irritable. On contact precautions in the context of extensive head lice infestation. Seen in room. Would not engage with senior grant writer. Told senior grant writer to come back and make an appointment. Did report that she felt safe, but then would not answer any further questions. Diagnostics Vital Signs (24Hr): Vital Signs - 24 hr 03/03/24 20:00 Temperature 97 F Pulse Rate 100 Blood Pressure 108/67 Pulse Oximetry 97 Oxygen Delivery Method Room Air BMI result Body Mass Index 23.9 Labs 02/27/24 08:24 Medications Medications Current Medications Acetaminophen (Acetaminophen 325 Mg Tablet) 650 mg PO Q6H PRN PRN Reason: Headache/Pain Mild Scale (1-3) Last Admin: 02/27/24 00:07 Dose: 650 mg Al Hydroxide/Mg Hydroxide (Magnesium Hydrox/Alum Hydrox 30 Ml Oral.Susp) 30 ml PO Q6H PRN PRN Reason: Heartburn/Nausea Diphenhydramine HCl (Diphenhydramine Hcl 25 Mg Capsule) 25 mg PO Q4H PRN PRN Reason: Itching Last Admin: 03/04/24 04:13 Dose: 25 mg Haloperidol (Haloperidol 5 Mg Tablet) 5 mg PO BEDTIME HERNESTO Last Admin: 03/03/24 20:00 Dose: 5 mg Haloperidol (Haloperidol 1 Mg Tablet) 2 mg PO DAILY HERNETSO Last Admin: 03/03/24 10:38 Dose: 2 mg Ivermectin (Ivermectin 3 Mg Tablet) 9 mg PO ONCE ONE Stop: 03/04/24 09:01 Magnesium Hydroxide (Milk Of Magnesia 30 Ml Oral.Susp) 30 ml PO DAILY PRN PRN Reason: Constipation Multi-Ingred Cream/Lotion/Oil/Oint (Mineral Oil/Petrolatum,White 106 Gm Tube) 1 appl TOPICAL Q2H PRN; Protocol PRN Reason: affected areas of dry skin Nicotine Polacrilex (Nicotine Polacrilex 2 Mg Gum) 4 mg BUCCAL Q2H PRN PRN Reason: Nicotine Cravings Olanzapine (Olanzapine 5 Mg Tablet) 5 mg PO Q4H PRN PRN Reason: agitation Trazodone HCl (Trazodone Hcl 50 Mg Tablet) 50 mg PO BEDTIME MRX1 PRN PRN Reason: Insomnia Last Admin: 03/02/24 20:39 Dose: 50 mg Allergies Allergies Allergy/AdvReac Type Severity Reaction Status Date / Time No Known Allergies Allergy Verified 02/25/24 21:07 Assessment & Plan Assessment & Plan (1) Psychotic affective disorder: Status: Acute Code(s): F39 - Unspecified mood [affective] disorder Plan She has alleged lice,she wont allow exam. Agree with another dose Permethrin. Hopefully she will allow hygiene measures such as hair washing, Consider check HIV test. 03/04/2024: No changes as Haldol just increased. Still unable to care for self Reason for continued inpatient stay Substantial Risk for: inability to function Time Spent With Patient Time: Total time managing care of this patient today ____ minutes.
[2024-03-04 10:10] VITALS: BP 130/77; PULSE 83; RESP 17; TEMP 36.2; O2SAT 97
[2024-03-04] MEDS: HaloperidoL 1 MG TABLET 2 MG PO (10:15)
[2024-03-04] MEDS: HaloperidoL 5 MG TABLET PO (20:48)
[2024-03-04] MEDS: traZODone HCL 50 MG TABLET PO (20:48)
[2024-03-05] MEDS: diphenhydrAMINE HCL 25 MG CAPSULE PO ×2 (03:48→21:26)
[2024-03-05] MEDS: HaloperidoL 1 MG TABLET 2 MG PO (09:02)
--- NOTE | 2024-03-05 10:07 | HO.PSYCHPN ---
Subjective Subjective Date of Service: 03/05/24 Reason For Visit: Unspecified Psychotic Disorder Subjective Notes: Conditional Voluntary Interim History: Has been compliant with medications. Limited self-care and intermittent difficulty adhering to precautions around head lice. As per nursing will still not allow appropriate topical treatment to be completed. With adjusto writer operator in room, irritable, declined to engage in interview today I'm fine, I don't want to talk . Medication Compliance: Yes Side effects from medications: No Attending Groups: No Review of Systems Review of Systems contact precautions for head lice Mental Status Exam Mental Status Exam Narrative: Limited self-care. Irritable. On contact precautions in the context of extensive head lice infestation. Seen in room. Would not engage with adjusto writer operator. Irritable and paranoid. Unable to assess SI, HI Diagnostics Vital Signs (24Hr): Vital Signs - 24 hr 03/04/24 10:10 Temperature 97.2 F Pulse Rate 83 Respiratory Rate 17 Blood Pressure 130/77 Pulse Oximetry 97 Oxygen Delivery Method Room Air BMI result Body Mass Index 23.9 Labs 02/27/24 08:24 Medications Medications Current Medications Acetaminophen (Acetaminophen 325 Mg Tablet) 650 mg PO Q6H PRN PRN Reason: Headache/Pain Mild Scale (1-3) Last Admin: 02/27/24 00:07 Dose: 650 mg Al Hydroxide/Mg Hydroxide (Magnesium Hydrox/Alum Hydrox 30 Ml Oral.Susp) 30 ml PO Q6H PRN PRN Reason: Heartburn/Nausea Diphenhydramine HCl (Diphenhydramine Hcl 25 Mg Capsule) 25 mg PO Q4H PRN PRN Reason: Itching Last Admin: 03/05/24 03:48 Dose: 25 mg Haloperidol (Haloperidol 5 Mg Tablet) 5 mg PO BEDTIME HERNESTO Last Admin: 03/04/24 20:48 Dose: 5 mg Haloperidol (Haloperidol 1 Mg Tablet) 2 mg PO DAILY HERNESTO Last Admin: 03/05/24 09:02 Dose: 2 mg Magnesium Hydroxide (Milk Of Magnesia 30 Ml Oral.Susp) 30 ml PO DAILY PRN PRN Reason: Constipation Multi-Ingred Cream/Lotion/Oil/Oint (Mineral Oil/Petrolatum,White 106 Gm Tube) 1 appl TOPICAL Q2H PRN; Protocol PRN Reason: affected areas of dry skin Nicotine Polacrilex (Nicotine Polacrilex 2 Mg Gum) 4 mg BUCCAL Q2H PRN PRN Reason: Nicotine Cravings Olanzapine (Olanzapine 5 Mg Tablet) 5 mg PO Q4H PRN PRN Reason: agitation Trazodone HCl (Trazodone Hcl 50 Mg Tablet) 50 mg PO BEDTIME MRX1 PRN PRN Reason: Insomnia Last Admin: 03/04/24 20:48 Dose: 50 mg Allergies Allergies Allergy/AdvReac Type Severity Reaction Status Date / Time No Known Allergies Allergy Verified 02/25/24 21:07 Assessment & Plan Assessment & Plan (1) Psychotic affective disorder: Status: Acute Code(s): F39 - Unspecified mood [affective] disorder Plan She has alleged lice,she wont allow exam. Agree with another dose Permethrin. Hopefully she will allow hygiene measures such as hair washing, Consider check HIV test. 03/05/2024: No changes as Haldol just increased. Still unable to care for self. Hopeful as psychosis decreases will allow appropriate head lice topical treatment to be completed. Reason for continued inpatient stay Substantial Risk for: inability to function Time Spent With Patient Time: Total time managing care of this patient today ____ minutes.
[2024-03-05] MEDS: HaloperidoL 5 MG TABLET PO (21:26)
[2024-03-05] MEDS: traZODone HCL 50 MG TABLET PO (21:26)
[2024-03-06 08:00] VITALS: RESP 18
[2024-03-06] MEDS: HaloperidoL 1 MG TABLET 2 MG PO (09:45)
--- NOTE | 2024-03-06 10:03 | PC.NURSE ---
Refused vital signs despite education and encouragement. Dr. Garcia notified.
--- NOTE | 2024-03-06 10:40 | HO.PSYCHPN ---
Subjective Subjective Date of Service: 03/06/24 Reason For Visit: Unspecified Psychotic Disorder Subjective Notes: Conditional Voluntary Interim History: The nursing staff reported the patient had been compliant with Haldol. The forensic social worker reported that [facility] will meet and try to come up with a plan. On interview the patient denies new symptoms, willing to continue treatment. Haldol increased up to 2 mg p.o. b.i.d. and 5 p.o. q.h.s. to target psychosis. Mental Status Exam Mental Status Exam Patient Appearance: Unkempt Patient Orientation: Person and Situation Level of Consciousness: Awake and Appropriate Patient Behavior: Guarded and Passive Mood Description: Withdrawn Affect Description: Constricted Patient Cognition Impaired: Yes Ability to Follow Directions: Fair Speech Pattern: Impoverished Hallucinations: None Delusions: Paranoid Ideation and Ideas of Reference Thought Process: Illogical, Distracted and Evasive Thought Content: positive for [place] and positive for Thought Blocking Judgement: Poor Diagnostics Vital Signs (24Hr): Vital Signs - 24 hr 03/06/24 08:00 Respiratory Rate 18 BMI result Body Mass Index 23.9 Labs 02/27/24 08:24 Medications Medications Current Medications Acetaminophen (Acetaminophen 325 Mg Tablet) 650 mg PO Q6H PRN PRN Reason: Headache/Pain Mild Scale (1-3) Last Admin: 02/27/24 00:07 Dose: 650 mg Al Hydroxide/Mg Hydroxide (Magnesium Hydrox/Alum Hydrox 30 Ml Oral.Susp) 30 ml PO Q6H PRN PRN Reason: Heartburn/Nausea Diphenhydramine HCl (Diphenhydramine Hcl 25 Mg Capsule) 25 mg PO Q4H PRN PRN Reason: Itching Last Admin: 03/05/24 21:26 Dose: 25 mg Haloperidol (Haloperidol 5 Mg Tablet) 5 mg PO BEDTIME HERNESTO Last Admin: 03/05/24 21:26 Dose: 5 mg Haloperidol (Haloperidol 1 Mg Tablet) 2 mg PO BID@0830,1330 HERNESTO Magnesium Hydroxide (Milk Of Magnesia 30 Ml Oral.Susp) 30 ml PO DAILY PRN PRN Reason: Constipation Multi-Ingred Cream/Lotion/Oil/Oint (Mineral Oil/Petrolatum,White 106 Gm Tube) 1 appl TOPICAL Q2H PRN; Protocol PRN Reason: affected areas of dry skin Nicotine Polacrilex (Nicotine Polacrilex 2 Mg Gum) 4 mg BUCCAL Q2H PRN PRN Reason: Nicotine Cravings Olanzapine (Olanzapine 5 Mg Tablet) 5 mg PO Q4H PRN PRN Reason: agitation Trazodone HCl (Trazodone Hcl 50 Mg Tablet) 50 mg PO BEDTIME MRX1 PRN PRN Reason: Insomnia Last Admin: 03/05/24 21:26 Dose: 50 mg Allergies Allergies Allergy/AdvReac Type Severity Reaction Status Date / Time No Known Allergies Allergy Verified 02/25/24 21:07 Assessment & Plan Assessment & Plan (1) Psychotic affective disorder: Status: Acute Code(s): F39 - Unspecified mood [affective] disorder Plan She has alleged lice,she wont allow exam. Agree with another dose Permethrin. Hopefully she will allow hygiene measures such as hair washing, Consider check HIV test. Plan 1. Haldol increased up to 2 mg p.o. b.i.d. and 5 mg p.o. q.h.s. on March 06. 2. Continue with treatment of lice. 3. We will coordinate with [facility] since we can not legally treat her against her will against lies. The case was discussed with senior management about treatment options. [facility] will come up with a plan. Reason for continued inpatient stay Substantial Risk for: inability to function, rapid decompensation and med/psych decompensation Time Spent With Patient Time: Total time managing care of this patient today _20___ minutes.
--- NOTE | 2024-03-06 13:27 | PC.NURSE ---
Declined 1330 Haldol despite encouragement and education. Dr. Garcia notified.
[2024-03-06 20:00] VITALS: BP 109/60; PULSE 78; RESP 16; TEMP 37; O2SAT 99
[2024-03-06] MEDS: traZODone HCL 50 MG TABLET PO (20:06)
[2024-03-06] MEDS: diphenhydrAMINE HCL 25 MG CAPSULE PO (20:06)
[2024-03-06] MEDS: HaloperidoL 5 MG TABLET PO (20:06)
[2024-03-07] MEDS: HaloperidoL 1 MG TABLET 2 MG PO ×2 (08:53→12:26)
--- NOTE | 2024-03-07 12:07 | HO.PSYCHPN ---
Subjective Subjective Date of Service: 03/07/24 Reason For Visit: Unspecified Psychotic Disorder Subjective Notes: Conditional Voluntary Interim History: The nursing staff reported the patient remains on her bed isolative, refused Haldol in the afternoon yesterday. She has refused showering. Today we have a calling with [facility] medical accounts receivable specialist from [place] and he was unable to provide us more suggestions to address her several problems. On interview the patient denies new symptoms. We will continue with Haldol 2 mg p.o. b.i.d. and 5 p.o. q.h.s. and ivermectin as per protocol. Mental Status Exam Mental Status Exam Patient Appearance: Appropriate and Unkempt Patient Orientation: Person Level of Consciousness: Awake Patient Behavior: Guarded and Passive Mood Description: Withdrawn Affect Description: Constricted Patient Cognition Impaired: Yes Ability to Follow Directions: Fair Speech Pattern: Clear Hallucinations: None Delusions: Not Present Thought Process: Distracted and Slowed Thinking Thought Content: positive for [place] and positive for Poverty of Content Judgement: Poor Diagnostics Vital Signs (24Hr): Vital Signs - 24 hr 03/06/24 20:00 Temperature 98.6 F Pulse Rate 78 Respiratory Rate 16 Blood Pressure 109/60 Pulse Oximetry 99 Oxygen Delivery Method Room Air BMI result Body Mass Index 23.9 Labs 02/27/24 08:24 Medications Medications Current Medications Acetaminophen (Acetaminophen 325 Mg Tablet) 650 mg PO Q6H PRN PRN Reason: Headache/Pain Mild Scale (1-3) Last Admin: 02/27/24 00:07 Dose: 650 mg Al Hydroxide/Mg Hydroxide (Magnesium Hydrox/Alum Hydrox 30 Ml Oral.Susp) 30 ml PO Q6H PRN PRN Reason: Heartburn/Nausea Diphenhydramine HCl (Diphenhydramine Hcl 25 Mg Capsule) 25 mg PO Q4H PRN PRN Reason: Itching Last Admin: 03/06/24 20:06 Dose: 25 mg Haloperidol (Haloperidol 5 Mg Tablet) 5 mg PO BEDTIME [facility] Last Admin: 03/06/24 20:06 Dose: 5 mg Haloperidol (Haloperidol 1 Mg Tablet) 2 mg PO BID@0830,1330 [facility] Last Admin: 03/07/24 08:53 Dose: 2 mg Magnesium Hydroxide (Milk Of Magnesia 30 Ml Oral.Susp) 30 ml PO DAILY PRN PRN Reason: Constipation Multi-Ingred Cream/Lotion/Oil/Oint (Mineral Oil/Petrolatum,White 106 Gm Tube) 1 appl TOPICAL Q2H PRN; Protocol PRN Reason: affected areas of dry skin Nicotine Polacrilex (Nicotine Polacrilex 2 Mg Gum) 4 mg BUCCAL Q2H PRN PRN Reason: Nicotine Cravings Olanzapine (Olanzapine 5 Mg Tablet) 5 mg PO Q4H PRN PRN Reason: agitation Trazodone HCl (Trazodone Hcl 50 Mg Tablet) 50 mg PO BEDTIME MRX1 PRN PRN Reason: Insomnia Last Admin: 03/06/24 20:06 Dose: 50 mg Allergies Allergies Allergy/AdvReac Type Severity Reaction Status Date / Time No Known Allergies Allergy Verified 02/25/24 21:07 Assessment & Plan Assessment & Plan (1) Psychotic affective disorder: Status: Acute Code(s): F39 - Unspecified mood [affective] disorder Plan She has alleged lice,she wont allow exam. Agree with another dose Permethrin. Hopefully she will allow hygiene measures such as hair washing, Consider check HIV test. Plan 1. Haldol increased up to 2 mg p.o. b.i.d. and 5 mg p.o. q.h.s. on March 06. 2. Continue with treatment of lice. 3. We will coordinate with [facility] since we can not legally treat her against her will. The case was discussed with senior management about treatment options. [facility] will come up with a plan. Today the director of [facility] called me and was unable to provide me more details or suggestions to help her. Reason for continued inpatient stay Substantial Risk for: inability to function, rapid decompensation and med/psych decompensation Time Spent With Patient Time: Total time managing care of this patient today __20__ minutes.
--- NOTE | 2024-03-07 16:44 | HO.WOUND ---
Wound Consult: Initial 79yr old? female admitted to [facility] on 02/25/24 19:47 to the [facility] Unit - See progress notes and H&P for detailed history.? Wound consult placed for Left Breast wound present admission.?Arrival to unit and bedside with direct care nurse Fabi, the patient was agreeable to my looking at the wound. She refused assessment and palpation to the scab and the periwound. She denies pain denied drainage but assessment was extremely limited. The left Mid sternal /breast area was noted for an approximately 4.5cm x 3cm dark brown thick scab. Unclear etiology as this would need further assessment. Currently appears stable from my visual assessment. If drainage were to be noted by patient or staff would recommend cleansing with NS, and covering with dry gauze dressing until she is agreeable to better assessment. The patient repeatedly asked me to stop talking and began to get frustrated, consultation ended. Unclear etiology and unclear treatment needs at this time. No topical recommendations to be made at this time.
[2024-03-07] MEDS: diphenhydrAMINE HCL 25 MG CAPSULE PO (20:13)
[2024-03-07] MEDS: HaloperidoL 5 MG TABLET PO (20:14)
[2024-03-07] MEDS: traZODone HCL 50 MG TABLET PO (20:14)
[2024-03-08] MEDS: HaloperidoL 1 MG TABLET 2 MG PO ×2 (08:48→12:37)
--- NOTE | 2024-03-08 13:50 | P.PNPSI_ITS ---
Subjective Subjective Date of Service: 03/08/24 Reason For Visit: Unspecified Psychotic Disorder Subjective Notes: Conditional Voluntary Interim History: The nursing staff reported the patient had been isolative in her room due to her infestation of lice. On interview the patient denies new symptoms. The occupational therapist approach her and she was in agreement of receiving permethrin again. The problem is that her Titi matted that most likely needed to be shaved. Mental Status Exam Mental Status Exam Patient Appearance: Appropriate Patient Orientation: Person and Situation Level of Consciousness: Awake and Appropriate Patient Behavior: Guarded and Passive Mood Description: Withdrawn Affect Description: Constricted Patient Cognition Impaired: Yes Ability to Follow Directions: Good Speech Pattern: Clear Hallucinations: None Delusions: Not Present Thought Process: Illogical Thought Content: positive for [place] and positive for Poverty of Content Judgement: Poor Diagnostics Vital Signs (24Hr): BMI result Body Mass Index 23.9 Labs 02/27/24 08:24 Medications Medications Current Medications Acetaminophen (Acetaminophen 325 Mg Tablet) 650 mg PO Q6H PRN PRN Reason: Headache/Pain Mild Scale (1-3) Last Admin: 02/27/24 00:07 Dose: 650 mg Al Hydroxide/Mg Hydroxide (Magnesium Hydrox/Alum Hydrox 30 Ml Oral.Susp) 30 ml PO Q6H PRN PRN Reason: Heartburn/Nausea Diphenhydramine HCl (Diphenhydramine Hcl 25 Mg Capsule) 25 mg PO Q4H PRN PRN Reason: Itching Last Admin: 03/07/24 20:13 Dose: 25 mg Haloperidol (Haloperidol 5 Mg Tablet) 5 mg PO BEDTIME [facility] Last Admin: 03/07/24 20:14 Dose: 5 mg Haloperidol (Haloperidol 1 Mg Tablet) 2 mg PO BID@0830,1330 [facility] Last Admin: 03/08/24 12:37 Dose: 2 mg Magnesium Hydroxide (Milk Of Magnesia 30 Ml Oral.Susp) 30 ml PO DAILY PRN PRN Reason: Constipation Multi-Ingred Cream/Lotion/Oil/Oint (Mineral Oil/Petrolatum,White 106 Gm Tube) 1 appl TOPICAL Q2H PRN; Protocol PRN Reason: affected areas of dry skin Nicotine Polacrilex (Nicotine Polacrilex 2 Mg Gum) 4 mg BUCCAL Q2H PRN PRN Reason: Nicotine Cravings Olanzapine (Olanzapine 5 Mg Tablet) 5 mg PO Q4H PRN PRN Reason: agitation Trazodone HCl (Trazodone Hcl 50 Mg Tablet) 50 mg PO BEDTIME MRX1 PRN PRN Reason: Insomnia Last Admin: 03/07/24 20:14 Dose: 50 mg Allergies Allergies Allergy/AdvReac Type Severity Reaction Status Date / Time No Known Allergies Allergy Verified 02/25/24 21:07 Assessment & Plan Assessment & Plan (1) Psychotic affective disorder: Status: Acute Code(s): F39 - Unspecified mood [affective] disorder Plan She has alleged lice,she wont allow exam. Agree with another dose Permethrin. Hopefully she will allow hygiene measures such as hair washing, Consider check HIV test. Plan 1. Haldol increased up to 2 mg p.o. b.i.d. and 5 mg p.o. q.h.s. on March 06. 2. Continue with treatment of lice. 3. We will coordinate with [facility] since we can not legally treat her against her will. The case was discussed with senior management about treatment options. [facility] will come up with a plan. Today the director of [facility] called me and was unable to provide me more details or suggestions to help her. 4. On March 08 the patient was willing to have another course of permethrin Reason for continued inpatient stay Substantial Risk for: inability to function, rapid decompensation and med/psych decompensation Time Spent With Patient Time: Total time managing care of this patient today __20__ minutes.
[2024-03-08 20:00] VITALS: BP 149/70; PULSE 73; RESP 16; TEMP 36.2; O2SAT 98
[2024-03-08] MEDS: traZODone HCL 50 MG TABLET PO (20:39)
[2024-03-08] MEDS: diphenhydrAMINE HCL 25 MG CAPSULE PO (20:39)
[2024-03-08] MEDS: HaloperidoL 5 MG TABLET PO (20:40)
[2024-03-09] MEDS: HaloperidoL 1 MG TABLET 2 MG PO ×2 (10:18→15:15)
--- NOTE | 2024-03-09 14:08 | PC.NURSE ---
This brief writer pproached pt, and suggested that she take a shower with medicated products, to assist with the killing of the lice. Pt refused.
--- NOTE | 2024-03-09 14:34 | P.PNPSI_ITS ---
Subjective Subjective Date of Service: 03/09/24 Reason For Visit: Unspecified Psychotic Disorder Subjective Notes: Conditional Voluntary Interim History: The nursing staff reported the patient refused permethrin yesterday but we are going to try again today. She remains seclusive, compliant with Haldol. We are going to try to convince the patient to shave her head since she is infested with lice. Mental Status Exam Mental Status Exam Patient Appearance: Appropriate Patient Orientation: Person and Situation Level of Consciousness: Awake and Appropriate Patient Behavior: Guarded and Passive Mood Description: Withdrawn Affect Description: Blunted Patient Cognition Impaired: Yes Ability to Follow Directions: Good Speech Pattern: Clear Hallucinations: None Delusions: Paranoid Ideation and Ideas of Reference Thought Process: Distracted and Slowed Thinking Thought Content: positive for [place] and positive for Poverty of Content Judgement: Poor Diagnostics Vital Signs (24Hr): Vital Signs - 24 hr 03/08/24 20:00 Temperature 97.2 F Pulse Rate 73 Respiratory Rate 16 Blood Pressure 149/70 H Pulse Oximetry 98 Oxygen Delivery Method Room Air BMI result Body Mass Index 23.9 Labs 02/27/24 08:24 Medications Medications Current Medications Acetaminophen (Acetaminophen 325 Mg Tablet) 650 mg PO Q6H PRN PRN Reason: Headache/Pain Mild Scale (1-3) Last Admin: 02/27/24 00:07 Dose: 650 mg Al Hydroxide/Mg Hydroxide (Magnesium Hydrox/Alum Hydrox 30 Ml Oral.Susp) 30 ml PO Q6H PRN PRN Reason: Heartburn/Nausea Diphenhydramine HCl (Diphenhydramine Hcl 25 Mg Capsule) 25 mg PO Q4H PRN PRN Reason: Itching Last Admin: 03/08/24 20:39 Dose: 25 mg Haloperidol (Haloperidol 5 Mg Tablet) 5 mg PO BEDTIME [facility] Last Admin: 03/08/24 20:40 Dose: 5 mg Haloperidol (Haloperidol 1 Mg Tablet) 2 mg PO BID@0830,1330 [facility] Last Admin: 03/09/24 10:18 Dose: 2 mg Magnesium Hydroxide (Milk Of Magnesia 30 Ml Oral.Susp) 30 ml PO DAILY PRN PRN Reason: Constipation Multi-Ingred Cream/Lotion/Oil/Oint (Mineral Oil/Petrolatum,White 106 Gm Tube) 1 appl TOPICAL Q2H PRN; Protocol PRN Reason: affected areas of dry skin Nicotine Polacrilex (Nicotine Polacrilex 2 Mg Gum) 4 mg BUCCAL Q2H PRN PRN Reason: Nicotine Cravings Olanzapine (Olanzapine 5 Mg Tablet) 5 mg PO Q4H PRN PRN Reason: agitation Trazodone HCl (Trazodone Hcl 50 Mg Tablet) 50 mg PO BEDTIME MRX1 PRN PRN Reason: Insomnia Last Admin: 03/08/24 20:39 Dose: 50 mg Allergies Allergies Allergy/AdvReac Type Severity Reaction Status Date / Time No Known Allergies Allergy Verified 02/25/24 21:07 Assessment & Plan Assessment & Plan (1) Psychotic affective disorder: Status: Acute Code(s): F39 - Unspecified mood [affective] disorder Plan She has alleged lice,she wont allow exam. Agree with another dose Permethrin. Hopefully she will allow hygiene measures such as hair washing, Consider check HIV test. Plan 1. Haldol increased up to 2 mg p.o. b.i.d. and 5 mg p.o. q.h.s. on March 06. 2. Continue with treatment of lice. 3. We will coordinate with [facility] since we can not legally treat her against her will. The case was discussed with senior management about treatment options. [facility] will come up with a plan. Today the director of [facility] called me and was unable to provide me more details or suggestions to help her. 4. On March 08 the patient was willing to have another course of permethrin but she refused we are trying again on March 09. Reason for continued inpatient stay Substantial Risk for: rapid decompensation and med/psych decompensation Time Spent With Patient Time: Total time managing care of this patient today _20___ minutes.
[2024-03-09 20:00] VITALS: RESP 16
[2024-03-10] MEDS: HaloperidoL 5 MG TABLET PO ×2 (09:08→21:04)
[2024-03-10] MEDS: HaloperidoL 1 MG TABLET 3 MG PO (09:08)
--- NOTE | 2024-03-10 15:21 | HO.PSYCHPN ---
Subjective Subjective Date of Service: 03/10/24 Reason For Visit: Unspecified Psychotic Disorder Subjective Notes: Conditional Voluntary Interim History: The nursing staff reported the patient had being isolative, declined the use of permethrin yesterday. On interview, the patient looks isolated internally preoccupied. We are increasing Haldol up to 5 mg p.o. b.i.d.. Mental Status Exam Mental Status Exam Patient Appearance: Unkempt Patient Orientation: Person Level of Consciousness: Alert Patient Behavior: Guarded and Passive Mood Description: Calm Affect Description: Blunted Patient Cognition Impaired: Yes Ability to Follow Directions: Good Speech Pattern: Clear Hallucinations: None Delusions: Paranoid Ideation and Ideas of Reference Thought Process: Distracted and Slowed Thinking Thought Content: positive for [place] and positive for Poverty of Content Judgement: Poor Diagnostics Vital Signs (24Hr): Vital Signs - 24 hr 03/09/24 20:00 Respiratory Rate 16 BMI result Body Mass Index 23.9 Labs 02/27/24 08:24 Medications Medications Current Medications Acetaminophen (Acetaminophen 325 Mg Tablet) 650 mg PO Q6H PRN PRN Reason: Headache/Pain Mild Scale (1-3) Last Admin: 02/27/24 00:07 Dose: 650 mg Al Hydroxide/Mg Hydroxide (Magnesium Hydrox/Alum Hydrox 30 Ml Oral.Susp) 30 ml PO Q6H PRN PRN Reason: Heartburn/Nausea Diphenhydramine HCl (Diphenhydramine Hcl 25 Mg Capsule) 25 mg PO Q4H PRN PRN Reason: Itching Last Admin: 03/08/24 20:39 Dose: 25 mg Haloperidol (Haloperidol 5 Mg Tablet) 5 mg PO BID [facility] Last Admin: 03/10/24 09:08 Dose: 5 mg Magnesium Hydroxide (Milk Of Magnesia 30 Ml Oral.Susp) 30 ml PO DAILY PRN PRN Reason: Constipation Multi-Ingred Cream/Lotion/Oil/Oint (Mineral Oil/Petrolatum,White 106 Gm Tube) 1 appl TOPICAL Q2H PRN; Protocol PRN Reason: affected areas of dry skin Nicotine Polacrilex (Nicotine Polacrilex 2 Mg Gum) 4 mg BUCCAL Q2H PRN PRN Reason: Nicotine Cravings Olanzapine (Olanzapine 5 Mg Tablet) 5 mg PO Q4H PRN PRN Reason: agitation Trazodone HCl (Trazodone Hcl 50 Mg Tablet) 50 mg PO BEDTIME MRX1 PRN PRN Reason: Insomnia Last Admin: 03/08/24 20:39 Dose: 50 mg Allergies Allergies Allergy/AdvReac Type Severity Reaction Status Date / Time No Known Allergies Allergy Verified 02/25/24 21:07 Assessment & Plan Assessment & Plan (1) Psychotic affective disorder: Status: Acute Code(s): F39 - Unspecified mood [affective] disorder Plan She has alleged lice,she wont allow exam. Agree with another dose Permethrin. Hopefully she will allow hygiene measures such as hair washing, Consider check HIV test. Plan 1. Haldol increased up to 2 mg p.o. b.i.d. and 5 mg p.o. q.h.s. on March 06. 2. Continue with treatment of lice. 3. We will coordinate with [facility] since we can not legally treat her against her will. The case was discussed with senior management about treatment options. [facility] will come up with a plan. Today the director of [facility] called me and was unable to provide me more details or suggestions to help her. 4. On March 08 the patient was willing to have another course of permethrin but she refused we are trying again on March 09. Reason for continued inpatient stay Substantial Risk for: inability to function, rapid decompensation and med/psych decompensation Time Spent With Patient Time: Total time managing care of this patient today ___20_ minutes.
[2024-03-10] MEDS: Acetaminophen 325 MG TABLET 650 MG PO (21:04)
[2024-03-10] MEDS: diphenhydrAMINE HCL 25 MG CAPSULE PO (21:04)
[2024-03-10] MEDS: OLANZapine 5 MG TABLET PO (21:04)
[2024-03-10] MEDS: traZODone HCL 50 MG TABLET PO (21:04)
--- NOTE | 2024-03-11 06:41 | P.PNPSI_ITS ---
Subjective Subjective Date of Service: 03/11/24 Reason For Visit: Unspecified Psychotic Disorder Subjective Notes: Conditional Voluntary Interim History: The nursing staff reported that she has declined the use of permethrin. Yesterday we increase her Haldol to 5 mg p.o. b.i.d.. She remains isolative still with infestation of lice. On interview the patient denies new symptoms I explained her that we need to treat her lies but she does not answer logically. We will continue with Haldol. Mental Status Exam Mental Status Exam Patient Appearance: Unkempt Patient Orientation: Person Level of Consciousness: Awake Patient Behavior: Guarded and Passive Mood Description: Withdrawn Affect Description: Blunted Patient Cognition Impaired: Yes Ability to Follow Directions: Poor Speech Pattern: Clear Hallucinations: Auditory Delusions: Paranoid Ideation and Ideas of Reference Thought Process: Distracted and Slowed Thinking Thought Content: positive for Poverty of Content Judgement: Poor Diagnostics Vital Signs (24Hr): BMI result Body Mass Index 23.9 Labs 02/27/24 08:24 Medications Medications Current Medications Acetaminophen (Acetaminophen 325 Mg Tablet) 650 mg PO Q6H PRN PRN Reason: Headache/Pain Mild Scale (1-3) Last Admin: 03/10/24 21:04 Dose: 650 mg Al Hydroxide/Mg Hydroxide (Magnesium Hydrox/Alum Hydrox 30 Ml Oral.Susp) 30 ml PO Q6H PRN PRN Reason: Heartburn/Nausea Diphenhydramine HCl (Diphenhydramine Hcl 25 Mg Capsule) 25 mg PO Q4H PRN PRN Reason: Itching Last Admin: 03/10/24 21:04 Dose: 25 mg Haloperidol (Haloperidol 5 Mg Tablet) 5 mg PO BID [facility] Last Admin: 03/10/24 21:04 Dose: 5 mg Magnesium Hydroxide (Milk Of Magnesia 30 Ml Oral.Susp) 30 ml PO DAILY PRN PRN Reason: Constipation Multi-Ingred Cream/Lotion/Oil/Oint (Mineral Oil/Petrolatum,White 106 Gm Tube) 1 appl TOPICAL Q2H PRN; Protocol PRN Reason: affected areas of dry skin Nicotine Polacrilex (Nicotine Polacrilex 2 Mg Gum) 4 mg BUCCAL Q2H PRN PRN Reason: Nicotine Cravings Olanzapine (Olanzapine 5 Mg Tablet) 5 mg PO Q4H PRN PRN Reason: agitation Last Admin: 03/10/24 21:04 Dose: 5 mg Trazodone HCl (Trazodone Hcl 50 Mg Tablet) 50 mg PO BEDTIME MRX1 PRN PRN Reason: Insomnia Last Admin: 03/10/24 21:04 Dose: 50 mg Allergies Allergies Allergy/AdvReac Type Severity Reaction Status Date / Time No Known Allergies Allergy Verified 02/25/24 21:07 Assessment & Plan Assessment & Plan (1) Psychotic affective disorder: Status: Acute Code(s): F39 - Unspecified mood [affective] disorder Plan She has alleged lice,she wont allow exam. Agree with another dose Permethrin. Hopefully she will allow hygiene measures such as hair washing, Consider check HIV test. Plan 1. Haldol increased up to 2 mg p.o. b.i.d. and 5 mg p.o. q.h.s. on March 06. 2. Continue with treatment of lice. 3. We will coordinate with [facility] since we can not legally treat her against her will. The case was discussed with senior management about treatment options. [facility] will come up with a plan. Today the director of [facility] called me and was unable to provide me more details or suggestions to help her. 4. On March 08 the patient was willing to have another course of permethrin but she refused we are trying again on March 09. Reason for continued inpatient stay Substantial Risk for: inability to function, rapid decompensation and med/psych decompensation Time Spent With Patient Time: Total time managing care of this patient today __20__ minutes.
[2024-03-11 09:22] VITALS: BP 142/66; PULSE 68; RESP 16; TEMP 35.9; O2SAT 98
[2024-03-11] MEDS: HaloperidoL 5 MG TABLET PO ×2 (09:26→20:51)
[2024-03-11] MEDS: traZODone HCL 50 MG TABLET PO (20:51)
[2024-03-11] MEDS: diphenhydrAMINE HCL 25 MG CAPSULE PO (20:51)
--- NOTE | 2024-03-12 06:41 | HO.PSYCHPN ---
Subjective Subjective Date of Service: 03/12/24 Reason For Visit: Unspecified Psychotic Disorder Subjective Notes: Conditional Voluntary Interim History: The nursing staff reported the patient had been in her room most of the time as per protocol, she has refused treatment for her lice and yesterday she she was compliant with treatment. On interview I explained her that she needs to be treated for her lies in order to do discharge planning. Mental Status Exam Mental Status Exam Patient Appearance: Unkempt Patient Orientation: Person and Situation Level of Consciousness: Awake and Appropriate Patient Behavior: Guarded and Passive Mood Description: Withdrawn Affect Description: Blunted Patient Cognition Impaired: Yes Ability to Follow Directions: Fair Speech Pattern: Clear Hallucinations: Auditory Delusions: Paranoid Ideation and Ideas of Reference Thought Process: Distracted and Slowed Thinking Thought Content: positive for [place] and positive for Poverty of Content Judgement: Poor Diagnostics Vital Signs (24Hr): Vital Signs - 24 hr 03/11/24 09:22 Temperature 96.7 F L Pulse Rate 68 Respiratory Rate 16 Blood Pressure 142/66 H Pulse Oximetry 98 Oxygen Delivery Method Room Air BMI result Body Mass Index 23.9 Labs 02/27/24 08:24 Medications Medications Current Medications Acetaminophen (Acetaminophen 325 Mg Tablet) 650 mg PO Q6H PRN PRN Reason: Headache/Pain Mild Scale (1-3) Last Admin: 03/10/24 21:04 Dose: 650 mg Al Hydroxide/Mg Hydroxide (Magnesium Hydrox/Alum Hydrox 30 Ml Oral.Susp) 30 ml PO Q6H PRN PRN Reason: Heartburn/Nausea Diphenhydramine HCl (Diphenhydramine Hcl 25 Mg Capsule) 25 mg PO Q4H PRN PRN Reason: Itching Last Admin: 03/11/24 20:51 Dose: 25 mg Haloperidol (Haloperidol 5 Mg Tablet) 5 mg PO BID [facility] Last Admin: 03/11/24 20:51 Dose: 5 mg Magnesium Hydroxide (Milk Of Magnesia 30 Ml Oral.Susp) 30 ml PO DAILY PRN PRN Reason: Constipation Multi-Ingred Cream/Lotion/Oil/Oint (Mineral Oil/Petrolatum,White 106 Gm Tube) 1 appl TOPICAL Q2H PRN; Protocol PRN Reason: affected areas of dry skin Nicotine Polacrilex (Nicotine Polacrilex 2 Mg Gum) 4 mg BUCCAL Q2H PRN PRN Reason: Nicotine Cravings Olanzapine (Olanzapine 5 Mg Tablet) 5 mg PO Q4H PRN PRN Reason: agitation Last Admin: 03/10/24 21:04 Dose: 5 mg Trazodone HCl (Trazodone Hcl 50 Mg Tablet) 50 mg PO BEDTIME MRX1 PRN PRN Reason: Insomnia Last Admin: 03/11/24 20:51 Dose: 50 mg Allergies Allergies Allergy/AdvReac Type Severity Reaction Status Date / Time No Known Allergies Allergy Verified 02/25/24 21:07 Assessment & Plan Assessment & Plan (1) Psychotic affective disorder: Status: Acute Code(s): F39 - Unspecified mood [affective] disorder Plan She has alleged lice,she wont allow exam. Agree with another dose Permethrin. Hopefully she will allow hygiene measures such as hair washing, Consider check HIV test. Plan 1. Haldol increased up to 2 mg p.o. b.i.d. and 5 mg p.o. q.h.s. on March 06. 2. Continue with treatment of lice. 3. We will coordinate with [facility] since we can not legally treat her against her will. The case was discussed with senior management about treatment options. [facility] will come up with a plan. Today the director of [facility] called me and was unable to provide me more details or suggestions to help her. 4. On March 08 the patient was willing to have another course of permethrin but she refused we are trying again on March 09 but she refused again. Reason for continued inpatient stay Substantial Risk for: inability to function, rapid decompensation and med/psych decompensation Time Spent With Patient Time: Total time managing care of this patient today _20___ minutes.
[2024-03-12 08:10] VITALS: BP 138/66; PULSE 79; RESP 18; TEMP 36.2; O2SAT 98
[2024-03-12] MEDS: HaloperidoL 5 MG TABLET PO ×2 (08:30→20:40)
[2024-03-12 20:00] VITALS: BP 132/68; PULSE 74; RESP 18; TEMP 36.6; O2SAT 96
[2024-03-12] MEDS: diphenhydrAMINE HCL 25 MG CAPSULE PO (20:40)
[2024-03-13 08:00] VITALS: RESP 16
[2024-03-13] MEDS: HaloperidoL 5 MG TABLET PO ×2 (09:09→20:42)
[2024-03-13] MEDS: diphenhydrAMINE HCL 25 MG CAPSULE PO ×2 (09:10→20:42)
--- NOTE | 2024-03-13 13:43 | P.PNPSI_ITS ---
Subjective Subjective Date of Service: 03/13/24 Reason For Visit: Unspecified Psychotic Disorder Subjective Notes: Conditional Voluntary Interim History: The nursing staff reported the patient had being mostly seclusive, compliant with treatment, she looks slightly more organized and a little more verbal. Today I explained her that she needs to shave her head and she does not want to do it. Today I discussed the case with a new chief scientific officer Dr. Gruber and most likely we will have to discuss on the ethical committee for shaving her head. I will discuss with [facility] about this. Mental Status Exam Mental Status Exam Patient Appearance: Appropriate Patient Orientation: Person and Situation Level of Consciousness: Awake Patient Behavior: Guarded and Passive Mood Description: Withdrawn Affect Description: Constricted Patient Cognition Impaired: Yes Ability to Follow Directions: Good Speech Pattern: Clear Hallucinations: None Delusions: Paranoid Ideation and Ideas of Reference Thought Process: Distracted and Slowed Thinking Thought Content: positive for [place] and positive for Poverty of Content Judgement: Poor Diagnostics Vital Signs (24Hr): Vital Signs - 24 hr 03/12/24 20:00 Temperature 97.8 F Pulse Rate 74 Respiratory Rate 18 Blood Pressure 132/68 Pulse Oximetry 96 Oxygen Delivery Method Room Air BMI result Body Mass Index 23.9 Labs 02/27/24 08:24 Medications Medications Current Medications Acetaminophen (Acetaminophen 325 Mg Tablet) 650 mg PO Q6H PRN PRN Reason: Headache/Pain Mild Scale (1-3) Last Admin: 03/10/24 21:04 Dose: 650 mg Al Hydroxide/Mg Hydroxide (Magnesium Hydrox/Alum Hydrox 30 Ml Oral.Susp) 30 ml PO Q6H PRN PRN Reason: Heartburn/Nausea Diphenhydramine HCl (Diphenhydramine Hcl 25 Mg Capsule) 25 mg PO Q4H PRN PRN Reason: Itching Last Admin: 03/13/24 09:10 Dose: 25 mg Haloperidol (Haloperidol 5 Mg Tablet) 5 mg PO BID HERNESTO Last Admin: 03/13/24 09:09 Dose: 5 mg Magnesium Hydroxide (Milk Of Magnesia 30 Ml Oral.Susp) 30 ml PO DAILY PRN PRN Reason: Constipation Multi-Ingred Cream/Lotion/Oil/Oint (Mineral Oil/Petrolatum,White 106 Gm Tube) 1 appl TOPICAL Q2H PRN; Protocol PRN Reason: affected areas of dry skin Nicotine Polacrilex (Nicotine Polacrilex 2 Mg Gum) 4 mg BUCCAL Q2H PRN PRN Reason: Nicotine Cravings Olanzapine (Olanzapine 5 Mg Tablet) 5 mg PO Q4H PRN PRN Reason: agitation Last Admin: 03/10/24 21:04 Dose: 5 mg Trazodone HCl (Trazodone Hcl 50 Mg Tablet) 50 mg PO BEDTIME MRX1 PRN PRN Reason: Insomnia Last Admin: 03/11/24 20:51 Dose: 50 mg Allergies Allergies Allergy/AdvReac Type Severity Reaction Status Date / Time No Known Allergies Allergy Verified 02/25/24 21:07 Assessment & Plan Assessment & Plan (1) Psychotic affective disorder: Status: Acute Code(s): F39 - Unspecified mood [affective] disorder Plan She has alleged lice,she wont allow exam. Agree with another dose Permethrin. Hopefully she will allow hygiene measures such as hair washing, Consider check HIV test. Plan 1. Haldol increased up to 2 mg p.o. b.i.d. and 5 mg p.o. q.h.s. on March 06. 2. Continue with treatment of lice. 3. We will coordinate with [facility] since we can not legally treat her against her will. The case was discussed with senior management about treatment options. [facility] will come up with a plan. Today the director of [facility] called me and was unable to provide me more details or suggestions to help her. 4. On March 08 the patient was willing to have another course of permethrin but she refused we are trying again on March 09 but she refused again. Reason for continued inpatient stay Substantial Risk for: inability to function, rapid decompensation and med/psych decompensation Time Spent With Patient Time: Total time managing care of this patient today __20__ minutes.
[2024-03-13 20:00] VITALS: RESP 18
[2024-03-14 08:00] VITALS: RESP 18
[2024-03-14] MEDS: HaloperidoL 5 MG TABLET PO ×2 (08:49→20:16)
--- NOTE | 2024-03-14 16:05 | P.PNPSI_ITS ---
Subjective Subjective Date of Service: 03/14/24 Reason For Visit: Unspecified Psychotic Disorder Subjective Notes: Conditional Voluntary Interim History: The nursing staff reported the patient ate only half of her dinner, she had refused to shower or change. She slept 5 hours. Today on interview the patient was asking about her discharge planning and explained her how she was before she stated that she could not remember. I explained her that she has lice and she needs to be treated in order to be placed. Mental Status Exam Mental Status Exam Patient Appearance: Appropriate and Unkempt Patient Orientation: Person and Situation Level of Consciousness: Awake Patient Behavior: Guarded and Passive Mood Description: Withdrawn Affect Description: Constricted Patient Cognition Impaired: Yes Ability to Follow Directions: Fair Speech Pattern: Clear Hallucinations: None Delusions: Paranoid Ideation and Ideas of Reference Thought Process: Distracted and Slowed Thinking Thought Content: positive for [place] and positive for Poverty of Content Judgement: Poor Diagnostics Vital Signs (24Hr): Vital Signs - 24 hr 03/13/24 20:00 03/14/24 08:00 Respiratory Rate 18 18 BMI result Body Mass Index 23.9 Labs 02/27/24 08:24 Medications Medications Current Medications Acetaminophen (Acetaminophen 325 Mg Tablet) 650 mg PO Q6H PRN PRN Reason: Headache/Pain Mild Scale (1-3) Last Admin: 03/10/24 21:04 Dose: 650 mg Al Hydroxide/Mg Hydroxide (Magnesium Hydrox/Alum Hydrox 30 Ml Oral.Susp) 30 ml PO Q6H PRN PRN Reason: Heartburn/Nausea Diphenhydramine HCl (Diphenhydramine Hcl 25 Mg Capsule) 25 mg PO Q4H PRN PRN Reason: Itching Last Admin: 03/13/24 20:42 Dose: 25 mg Haloperidol (Haloperidol 5 Mg Tablet) 5 mg PO BID HERNESTO Last Admin: 03/14/24 08:49 Dose: 5 mg Magnesium Hydroxide (Milk Of Magnesia 30 Ml Oral.Susp) 30 ml PO DAILY PRN PRN Reason: Constipation Multi-Ingred Cream/Lotion/Oil/Oint (Mineral Oil/Petrolatum,White 106 Gm Tube) 1 appl TOPICAL Q2H PRN; Protocol PRN Reason: affected areas of dry skin Nicotine Polacrilex (Nicotine Polacrilex 2 Mg Gum) 4 mg BUCCAL Q2H PRN PRN Reason: Nicotine Cravings Olanzapine (Olanzapine 5 Mg Tablet) 5 mg PO Q4H PRN PRN Reason: agitation Last Admin: 03/10/24 21:04 Dose: 5 mg Trazodone HCl (Trazodone Hcl 50 Mg Tablet) 50 mg PO BEDTIME MRX1 PRN PRN Reason: Insomnia Last Admin: 03/11/24 20:51 Dose: 50 mg Allergies Allergies Allergy/AdvReac Type Severity Reaction Status Date / Time No Known Allergies Allergy Verified 02/25/24 21:07 Assessment & Plan Assessment & Plan (1) Psychotic affective disorder: Status: Acute Code(s): F39 - Unspecified mood [affective] disorder Plan She has alleged lice,she wont allow exam. Agree with another dose Permethrin. Hopefully she will allow hygiene measures such as hair washing, Consider check HIV test. Plan 1. Haldol increased up to 2 mg p.o. b.i.d. and 5 mg p.o. q.h.s. on March 06. 2. Continue with treatment of lice. 3. We will coordinate with [facility] since we can not legally treat her against her will. The case was discussed with senior management about treatment options. [facility] will come up with a plan. Today the director of [facility] called me and was unable to provide me more details or suggestions to help her. 4. On March 08 the patient was willing to have another course of permethrin but she refused we are trying again on March 09 but she refused again. Reason for continued inpatient stay Substantial Risk for: inability to function, rapid decompensation and med/psych decompensation Time Spent With Patient Time: Total time managing care of this patient today _20___ minutes.
[2024-03-14] MEDS: diphenhydrAMINE HCL 25 MG CAPSULE PO (20:16)
[2024-03-14] MEDS: traZODone HCL 50 MG TABLET PO (20:16)
[2024-03-15 08:00] VITALS: RESP 18
[2024-03-15] MEDS: HaloperidoL 5 MG TABLET PO ×2 (08:14→20:22)
[2024-03-15] MEDS: Permethrin 1 % Lotion 59 ML BTL 1 APPL TOPICAL (11:01)
[2024-03-15] MEDS: Permethrin 5 % Cream 60 GM TUBE 1 APPL TOPICAL (11:01)
[2024-03-15] MEDS: diphenhydrAMINE HCL 25 MG CAPSULE PO ×2 (13:14→20:22)
--- NOTE | 2024-03-15 13:15 | P.PNPSI_ITS ---
Subjective Subjective Date of Service: 03/15/24 Reason For Visit: Unspecified Psychotic Disorder Subjective Notes: Conditional Voluntary Interim History: The nursing staff reported the patient had being very attention seeking demanding but redirectable. Today she agreed to have permethrin and shower to try to get rid of of the lies. On interview the patient denies new symptoms she was asking about discharge planning and I explained her that 1st she needs to be free of lies to get placement. We are filing for guardianship since the patient is unable to take care of herself in the community. Mental Status Exam Mental Status Exam Patient Appearance: Appropriate and Unkempt Patient Orientation: Person Level of Consciousness: Awake Patient Behavior: Guarded and Passive Mood Description: Withdrawn Affect Description: Constricted Patient Cognition Impaired: Yes Ability to Follow Directions: Good Speech Pattern: Clear Hallucinations: Auditory Delusions: Paranoid Ideation and Ideas of Reference Thought Process: Distracted and Slowed Thinking Thought Content: positive for [place] and positive for Poverty of Content Judgement: Poor Diagnostics Vital Signs (24Hr): Vital Signs - 24 hr 03/15/24 08:00 Respiratory Rate 18 BMI result Body Mass Index 23.9 Labs 02/27/24 08:24 Medications Medications Current Medications Acetaminophen (Acetaminophen 325 Mg Tablet) 650 mg PO Q6H PRN PRN Reason: Headache/Pain Mild Scale (1-3) Last Admin: 03/10/24 21:04 Dose: 650 mg Al Hydroxide/Mg Hydroxide (Magnesium Hydrox/Alum Hydrox 30 Ml Oral.Susp) 30 ml PO Q6H PRN PRN Reason: Heartburn/Nausea Diphenhydramine HCl (Diphenhydramine Hcl 25 Mg Capsule) 25 mg PO Q4H PRN PRN Reason: Itching Last Admin: 03/15/24 13:14 Dose: 25 mg Haloperidol (Haloperidol 5 Mg Tablet) 5 mg PO BID HERNESTO Last Admin: 03/15/24 08:14 Dose: 5 mg Magnesium Hydroxide (Milk Of Magnesia 30 Ml Oral.Susp) 30 ml PO DAILY PRN PRN Reason: Constipation Multi-Ingred Cream/Lotion/Oil/Oint (Mineral Oil/Petrolatum,White 106 Gm Tube) 1 appl TOPICAL Q2H PRN; Protocol PRN Reason: affected areas of dry skin Nicotine Polacrilex (Nicotine Polacrilex 2 Mg Gum) 4 mg BUCCAL Q2H PRN PRN Reason: Nicotine Cravings Olanzapine (Olanzapine 5 Mg Tablet) 5 mg PO Q4H PRN PRN Reason: agitation Last Admin: 03/10/24 21:04 Dose: 5 mg Trazodone HCl (Trazodone Hcl 50 Mg Tablet) 50 mg PO BEDTIME MRX1 PRN PRN Reason: Insomnia Last Admin: 03/14/24 20:16 Dose: 50 mg Allergies Allergies Allergy/AdvReac Type Severity Reaction Status Date / Time No Known Allergies Allergy Verified 02/25/24 21:07 Assessment & Plan Assessment & Plan (1) Psychotic affective disorder: Status: Acute Code(s): F39 - Unspecified mood [affective] disorder Plan She has alleged lice,she wont allow exam. Agree with another dose Permethrin. Hopefully she will allow hygiene measures such as hair washing, Consider check HIV test. Plan 1. Haldol increased up to 2 mg p.o. b.i.d. and 5 mg p.o. q.h.s. on March 06. 2. Continue with treatment of lice. 3. We will coordinate with [facility] since we can not legally treat her against her will. The case was discussed with senior management about treatment options. [facility] will come up with a plan. Today the director of [facility] called me and was unable to provide me more details or suggestions to help her. 4. On March 08 the patient was willing to have another course of permethrin but she refused we are trying again on March 09 but she refused again. Reason for continued inpatient stay Substantial Risk for: inability to function, rapid decompensation and med/psych decompensation Time Spent With Patient Time: Total time managing care of this patient today __20__ minutes.
--- NOTE | 2024-03-15 18:00 | PC.NURSE ---
Patient agreed to have Permethrin and shower to get rid of lies.
[2024-03-15] MEDS: traZODone HCL 50 MG TABLET PO (20:22)
[2024-03-15] MEDS: OLANZapine 5 MG TABLET PO (20:22)
[2024-03-16 07:00] VITALS: BMI 32.6
[2024-03-16 08:00] VITALS: RESP 16
[2024-03-16] MEDS: HaloperidoL 5 MG TABLET PO (08:47)
--- NOTE | 2024-03-16 16:28 | P.PNPSI_ITS ---
Subjective Subjective Date of Service: 03/16/24 Reason For Visit: Unspecified Psychotic Disorder Interim History: Met with patient; discussed with team Patient lying in bed , awake. She says tells commercial insurance underwriter she is okay. Dinkey Locomotive Operator explained raising bedtime Haldol dose to which she said okay. Mental Status Exam Mental Status Exam Narrative: Pt is alert and oriented; behavior is guarded, calm, lying in bed awake; patient is not in distress; dressed in hospital attire, disheveled appearing; mood is described as ok and affect vacant; no eye contact; Speech sparse; psychomotor retardation present; thought process is goal directed; Thought content is vacuous; SI/HI/AVH not assessed Patients insight and judgment impaired Diagnostics Vital Signs (24Hr): Vital Signs - 24 hr 03/16/24 08:00 Respiratory Rate 16 BMI result Body Mass Index 32.6 Labs 02/27/24 08:24 Medications Medications Current Medications Acetaminophen (Acetaminophen 325 Mg Tablet) 650 mg PO Q6H PRN PRN Reason: Headache/Pain Mild Scale (1-3) Last Admin: 03/10/24 21:04 Dose: 650 mg Al Hydroxide/Mg Hydroxide (Magnesium Hydrox/Alum Hydrox 30 Ml Oral.Susp) 30 ml PO Q6H PRN PRN Reason: Heartburn/Nausea Diphenhydramine HCl (Diphenhydramine Hcl 25 Mg Capsule) 25 mg PO Q4H PRN PRN Reason: Itching Last Admin: 03/15/24 20:22 Dose: 25 mg Haloperidol (Haloperidol 5 Mg Tablet) 5 mg PO DAILY HERNESTO Haloperidol (Haloperidol 5 Mg Tablet) 10 mg PO BEDTIME HERNESTO Magnesium Hydroxide (Milk Of Magnesia 30 Ml Oral.Susp) 30 ml PO DAILY PRN PRN Reason: Constipation Multi-Ingred Cream/Lotion/Oil/Oint (Mineral Oil/Petrolatum,White 106 Gm Tube) 1 appl TOPICAL Q2H PRN; Protocol PRN Reason: affected areas of dry skin Nicotine Polacrilex (Nicotine Polacrilex 2 Mg Gum) 4 mg BUCCAL Q2H PRN PRN Reason: Nicotine Cravings Olanzapine (Olanzapine 5 Mg Tablet) 5 mg PO Q4H PRN PRN Reason: agitation Last Admin: 03/15/24 20:22 Dose: 5 mg Trazodone HCl (Trazodone Hcl 50 Mg Tablet) 50 mg PO BEDTIME MRX1 PRN PRN Reason: Insomnia Last Admin: 03/15/24 20:22 Dose: 50 mg Allergies Allergies Allergy/AdvReac Type Severity Reaction Status Date / Time No Known Allergies Allergy Verified 02/25/24 21:07 Assessment & Plan Assessment & Plan (1) Psychotic affective disorder: Status: Acute Code(s): F39 - Unspecified mood [affective] disorder Plan 03/16 Patient lying in bed , awake. She says tells commercial insurance underwriter she is okay. Dinkey Locomotive Operator explained raising bedtime Haldol dose to which she said okay. Continue Haldol 5 mg daily Increase Haldol to 10 mg q.h.s. since patient has been on current dose for while and staff reports she is perhaps a little less paranoid meaning that Haldol may be proving effective. -given continued lice infestation, technical writer and editor not able to gain access She has alleged lice,allowed exam Agree with another dose Permethrin. she allowed hygiene measures such as hair washing, Consider check HIV test. Plan 2. Continue with treatment of lice. 3. We will coordinate with [facility] since we can not legally treat her against her will. The case was discussed with senior management about treatment options. [facility] will come up with a plan. Today the director of [facility] called me and was unable to provide me more details or suggestions to help her. 4. On March 08 the patient was willing to have another course of permethrin but she refused we are trying again on March 09 but she refused again. Patient educated on: medication risk/benefits Reason for continued inpatient stay Substantial Risk for: inability to function Time Spent With Patient Time: Total time managing care of this patient today ____ minutes.
[2024-03-16 20:00] VITALS: BP 123/70; RESP 16; TEMP 36; O2SAT 98
[2024-03-16] MEDS: HaloperidoL 5 MG TABLET 10 MG PO (21:50)
[2024-03-17 08:00] VITALS: RESP 18
[2024-03-17] MEDS: HaloperidoL 5 MG TABLET PO (08:53)
--- NOTE | 2024-03-17 12:57 | HO.PSYCHPN ---
Subjective Subjective Date of Service: 03/17/24 Reason For Visit: Unspecified Psychotic Disorder Subjective Notes: Conditional Voluntary Interim History: The nursing staff reported the patient denies anxiety depression she remains paranoid. Her Haldol has been increased up to 50 mg a day. On interview the patient denies new symptoms, internally preoccupied. Mental Status Exam Mental Status Exam Patient Appearance: Appropriate Patient Orientation: Person and Situation Level of Consciousness: Awake and Appropriate Patient Behavior: Guarded and Passive Mood Description: Withdrawn and Constricted Affect Description: Calm Patient Cognition Impaired: Yes Ability to Follow Directions: Good Speech Pattern: Clear Hallucinations: None Delusions: Paranoid Ideation and Ideas of Reference Thought Content: positive for [place] and positive for Poverty of Content Judgement: Poor Diagnostics Vital Signs (24Hr): Vital Signs - 24 hr 03/16/24 20:00 03/17/24 08:00 Temperature 96.8 F Respiratory Rate 16 18 Blood Pressure 123/70 Pulse Oximetry 98 Oxygen Delivery Method Room Air BMI result Body Mass Index 32.6 Labs 02/27/24 08:24 Medications Medications Current Medications Acetaminophen (Acetaminophen 325 Mg Tablet) 650 mg PO Q6H PRN PRN Reason: Headache/Pain Mild Scale (1-3) Last Admin: 03/10/24 21:04 Dose: 650 mg Al Hydroxide/Mg Hydroxide (Magnesium Hydrox/Alum Hydrox 30 Ml Oral.Susp) 30 ml PO Q6H PRN PRN Reason: Heartburn/Nausea Diphenhydramine HCl (Diphenhydramine Hcl 25 Mg Capsule) 25 mg PO Q4H PRN PRN Reason: Itching Last Admin: 03/15/24 20:22 Dose: 25 mg Haloperidol (Haloperidol 5 Mg Tablet) 5 mg PO DAILY HERNESTO Last Admin: 03/17/24 08:53 Dose: 5 mg Haloperidol (Haloperidol 5 Mg Tablet) 10 mg PO BEDTIME HERNESTO Last Admin: 03/16/24 21:50 Dose: 10 mg Magnesium Hydroxide (Milk Of Magnesia 30 Ml Oral.Susp) 30 ml PO DAILY PRN PRN Reason: Constipation Multi-Ingred Cream/Lotion/Oil/Oint (Mineral Oil/Petrolatum,White 106 Gm Tube) 1 appl TOPICAL Q2H PRN; Protocol PRN Reason: affected areas of dry skin Nicotine Polacrilex (Nicotine Polacrilex 2 Mg Gum) 4 mg BUCCAL Q2H PRN PRN Reason: Nicotine Cravings Olanzapine (Olanzapine 5 Mg Tablet) 5 mg PO Q4H PRN PRN Reason: agitation Last Admin: 03/15/24 20:22 Dose: 5 mg Trazodone HCl (Trazodone Hcl 50 Mg Tablet) 50 mg PO BEDTIME MRX1 PRN PRN Reason: Insomnia Last Admin: 03/15/24 20:22 Dose: 50 mg Allergies Allergies Allergy/AdvReac Type Severity Reaction Status Date / Time No Known Allergies Allergy Verified 02/25/24 21:07 Assessment & Plan Assessment & Plan (1) Psychotic affective disorder: Status: Acute Code(s): F39 - Unspecified mood [affective] disorder Plan 03/16 Patient lying in bed , awake. She says tells com writer she is okay. Hair Tinter explained raising bedtime Haldol dose to which she said okay. Continue Haldol 5 mg daily Increase Haldol to 10 mg q.h.s. since patient has been on current dose for while and staff reports she is perhaps a little less paranoid meaning that Haldol may be proving effective. -given continued lice infestation, residential air sealing technician not able to gain access She has alleged lice,allowed exam Agree with another dose Permethrin. she allowed hygiene measures such as hair washing, Consider check HIV test. Plan 2. Continue with treatment of lice. 3. We will coordinate with [facility] since we can not legally treat her against her will. The case was discussed with senior management about treatment options. [facility] will come up with a plan. Today the director of [facility] called me and was unable to provide me more details or suggestions to help her. 4. On March 08 the patient was willing to have another course of permethrin but she refused we are trying again on March 09 but she refused again. On March 15 she agreed for permethrin and she was able to have a minor haircut and she allowed us to calm her her for needs. We will try to do it again early next week Reason for continued inpatient stay Substantial Risk for: inability to function, rapid decompensation and med/psych decompensation Time Spent With Patient Time: Total time managing care of this patient today __20__ minutes.
[2024-03-17 20:00] VITALS: RESP 16
[2024-03-17] MEDS: HaloperidoL 5 MG TABLET 10 MG PO (21:09)
[2024-03-18 08:00] VITALS: RESP 16
[2024-03-18] MEDS: HaloperidoL 5 MG TABLET PO (08:30)
--- NOTE | 2024-03-18 14:15 | P.PNPSI_ITS ---
Subjective Subjective Date of Service: 03/18/24 Reason For Visit: Unspecified Psychotic Disorder Subjective Notes: Conditional Voluntary Interim History: Patient was seen and discussed in rounds today. Records and plans were reviewed. It appears that she finally agreed to be treated for head and body lice. She was resting comfortably in bed and was surprised and pleased that I could speak her language. No complaints. Questions about her whereabouts and why she is here discussed. No changes were made today Review of Systems Review of Systems Yes all other systems are reviewed and are negative Mental Status Exam Mental Status Exam Narrative: In today's visit she is alert, pleasant and cooperative. Soft-spoken speech. Moderate eye contact. Affect is appropriate and contained. No acute signs of psychosis but exhibits chronic parameters. Paranoid ideations present. No SI. Judgment is impaired. Diagnostics Vital Signs (24Hr): Vital Signs - 24 hr 03/17/24 20:00 03/18/24 08:00 Respiratory Rate 16 16 BMI result Body Mass Index 32.6 Labs 02/27/24 08:24 Medications Medications Current Medications Acetaminophen (Acetaminophen 325 Mg Tablet) 650 mg PO Q6H PRN PRN Reason: Headache/Pain Mild Scale (1-3) Last Admin: 03/10/24 21:04 Dose: 650 mg Al Hydroxide/Mg Hydroxide (Magnesium Hydrox/Alum Hydrox 30 Ml Oral.Susp) 30 ml PO Q6H PRN PRN Reason: Heartburn/Nausea Diphenhydramine HCl (Diphenhydramine Hcl 25 Mg Capsule) 25 mg PO Q4H PRN PRN Reason: Itching Last Admin: 03/15/24 20:22 Dose: 25 mg Haloperidol (Haloperidol 5 Mg Tablet) 5 mg PO DAILY HERNESTO Last Admin: 03/18/24 08:30 Dose: 5 mg Haloperidol (Haloperidol 5 Mg Tablet) 10 mg PO BEDTIME HERNESTO Last Admin: 03/17/24 21:09 Dose: 10 mg Magnesium Hydroxide (Milk Of Magnesia 30 Ml Oral.Susp) 30 ml PO DAILY PRN PRN Reason: Constipation Multi-Ingred Cream/Lotion/Oil/Oint (Mineral Oil/Petrolatum,White 106 Gm Tube) 1 appl TOPICAL Q2H PRN; Protocol PRN Reason: affected areas of dry skin Nicotine Polacrilex (Nicotine Polacrilex 2 Mg Gum) 4 mg BUCCAL Q2H PRN PRN Reason: Nicotine Cravings Olanzapine (Olanzapine 5 Mg Tablet) 5 mg PO Q4H PRN PRN Reason: agitation Last Admin: 03/15/24 20:22 Dose: 5 mg Trazodone HCl (Trazodone Hcl 50 Mg Tablet) 50 mg PO BEDTIME MRX1 PRN PRN Reason: Insomnia Last Admin: 03/15/24 20:22 Dose: 50 mg Allergies Allergies Allergy/AdvReac Type Severity Reaction Status Date / Time No Known Allergies Allergy Verified 02/25/24 21:07 Assessment & Plan Assessment & Plan (1) Psychotic affective disorder: Status: Acute Code(s): F39 - Unspecified mood [affective] disorder Plan 03/16 Patient lying in bed , awake. She says tells copywriter she is okay. Product Development Specialist explained raising bedtime Haldol dose to which she said okay. Continue Haldol 5 mg daily Increase Haldol to 10 mg q.h.s. since patient has been on current dose for while and staff reports she is perhaps a little less paranoid meaning that Haldol may be proving effective. -given continued lice infestation, converting technician not able to gain access 03/18: Continue current regimen and plans She has alleged lice,allowed exam Agree with another dose Permethrin. she allowed hygiene measures such as hair washing, Consider check HIV test. Plan 2. Continue with treatment of lice. 3. We will coordinate with [facility] since we can not legally treat her against her will. The case was discussed with senior management about treatment options. [facility] will come up with a plan. Today the director of [facility] called me and was unable to provide me more details or suggestions to help her. 4. On March 08 the patient was willing to have another course of permethrin but she refused we are trying again on March 09 but she refused again. On March 15 she agreed for permethrin and she was able to have a minor haircut and she allowed us to calm her her for needs. We will try to do it again early next week Reason for continued inpatient stay Substantial Risk for: inability to function and med/psych decompensation Time Spent With Patient Time: Total time managing care of this patient today ____ minutes.
--- NOTE | 2024-03-18 14:57 | PC.NURSE ---
MOCA/ACLS: Pt scored a 10/30 on the MOCA and a 3.4 on the ACLS indicating severe cognitive impairment
[2024-03-18 20:00] VITALS: BP 128/64; PULSE 71; RESP 16; TEMP 36.6; O2SAT 94
[2024-03-18] MEDS: HaloperidoL 5 MG TABLET 10 MG PO (20:15)
[2024-03-19] MEDS: HaloperidoL 5 MG TABLET PO (09:03)
--- NOTE | 2024-03-19 11:12 | HO.PSYCHPN ---
Subjective Subjective Date of Service: 03/19/24 Reason For Visit: Unspecified Psychotic Disorder Subjective Notes: Conditional Voluntary Interim History: Patient was seen and discussed in rounds today. Records and plans were reviewed. She has been stable, mostly in her room on her bed. She is interactive and responds to questions appropriately. No complaints or side effects. No behavioral issues. Hygiene is improved. No changes were made today Review of Systems Review of Systems Yes all other systems are reviewed and are negative Mental Status Exam Mental Status Exam Narrative: In today's visit she is alert, pleasant and cooperative. Soft-spoken speech. Moderate eye contact. Affect is appropriate and contained. No acute signs of psychosis but exhibits chronic parameters. Paranoid ideations present. No SI. Judgment is impaired. Diagnostics Vital Signs (24Hr): Vital Signs - 24 hr 03/18/24 20:00 Temperature 97.8 F Pulse Rate 71 Respiratory Rate 16 Blood Pressure 128/64 Pulse Oximetry 94 Oxygen Delivery Method Room Air BMI result Body Mass Index 32.6 Labs 02/27/24 08:24 Medications Medications Current Medications Acetaminophen (Acetaminophen 325 Mg Tablet) 650 mg PO Q6H PRN PRN Reason: Headache/Pain Mild Scale (1-3) Last Admin: 03/10/24 21:04 Dose: 650 mg Al Hydroxide/Mg Hydroxide (Magnesium Hydrox/Alum Hydrox 30 Ml Oral.Susp) 30 ml PO Q6H PRN PRN Reason: Heartburn/Nausea Diphenhydramine HCl (Diphenhydramine Hcl 25 Mg Capsule) 25 mg PO Q4H PRN PRN Reason: Itching Last Admin: 03/15/24 20:22 Dose: 25 mg Haloperidol (Haloperidol 5 Mg Tablet) 5 mg PO DAILY [facility] Last Admin: 03/19/24 09:03 Dose: 5 mg Haloperidol (Haloperidol 5 Mg Tablet) 10 mg PO BEDTIME [facility] Last Admin: 03/18/24 20:15 Dose: 10 mg Magnesium Hydroxide (Milk Of Magnesia 30 Ml Oral.Susp) 30 ml PO DAILY PRN PRN Reason: Constipation Multi-Ingred Cream/Lotion/Oil/Oint (Mineral Oil/Petrolatum,White 106 Gm Tube) 1 appl TOPICAL Q2H PRN; Protocol PRN Reason: affected areas of dry skin Nicotine Polacrilex (Nicotine Polacrilex 2 Mg Gum) 4 mg BUCCAL Q2H PRN PRN Reason: Nicotine Cravings Olanzapine (Olanzapine 5 Mg Tablet) 5 mg PO Q4H PRN PRN Reason: agitation Last Admin: 03/15/24 20:22 Dose: 5 mg Trazodone HCl (Trazodone Hcl 50 Mg Tablet) 50 mg PO BEDTIME MRX1 PRN PRN Reason: Insomnia Last Admin: 03/15/24 20:22 Dose: 50 mg Allergies Allergies Allergy/AdvReac Type Severity Reaction Status Date / Time No Known Allergies Allergy Verified 02/25/24 21:07 Assessment & Plan Assessment & Plan (1) Psychotic affective disorder: Status: Acute Code(s): F39 - Unspecified mood [affective] disorder Plan 03/16 Patient lying in bed , awake. She says tells inspector automatic typewriter she is okay. Director Network Development explained raising bedtime Haldol dose to which she said okay. Continue Haldol 5 mg daily Increase Haldol to 10 mg q.h.s. since patient has been on current dose for while and staff reports she is perhaps a little less paranoid meaning that Haldol may be proving effective. -given continued lice infestation, industrial hygiene technician not able to gain access 03/18: Continue current regimen and plans 03/19: Continue current regimen and plans She has alleged lice,allowed exam Agree with another dose Permethrin. she allowed hygiene measures such as hair washing, Consider check HIV test. Plan 2. Continue with treatment of lice. 3. We will coordinate with [facility] since we can not legally treat her against her will. The case was discussed with senior management about treatment options. [facility] will come up with a plan. Today the director of [facility] called me and was unable to provide me more details or suggestions to help her. 4. On March 08 the patient was willing to have another course of permethrin but she refused we are trying again on March 09 but she refused again. On March 15 she agreed for permethrin and she was able to have a minor haircut and she allowed us to calm her her for needs. We will try to do it again early next week Reason for continued inpatient stay Substantial Risk for: med/psych decompensation Time Spent With Patient Time: Total time managing care of this patient today ____ minutes.
[2024-03-19] MEDS: HaloperidoL 5 MG TABLET 10 MG PO (20:49)
[2024-03-19] MEDS: OLANZapine 5 MG TABLET PO (20:49)
[2024-03-19] MEDS: diphenhydrAMINE HCL 25 MG CAPSULE PO (20:50)
[2024-03-20 08:00] VITALS: RESP 16
[2024-03-20] MEDS: HaloperidoL 5 MG TABLET PO (08:10)
--- NOTE | 2024-03-20 13:46 | HO.PSYCHPN ---
Subjective Subjective Date of Service: 03/20/24 Reason For Visit: Unspecified Psychotic Disorder Subjective Notes: Conditional Voluntary Interim History: The nursing staff reported the patient had been very attention seeking asking for help to go to her bed even though that she can do it. The occupational therapist reported that she scored 3.4 on the Jabier test and 10/30 on the Moore test. Today we have a meeting with [facility] and apparently the patient had been always poorly compliant with antipsychotics and in the last 4 years that they [facility] she has never follow treatment for her psychiatric issues or her breast cancer. Mental Status Exam Mental Status Exam Patient Appearance: Appropriate Patient Orientation: Person and Situation Level of Consciousness: Awake Patient Behavior: Guarded and Passive Mood Description: Withdrawn Affect Description: Constricted Patient Cognition Impaired: Yes Ability to Follow Directions: Good Speech Pattern: Clear Hallucinations: None Delusions: Paranoid Ideation and Ideas of Reference Thought Process: Distracted and Slowed Thinking Thought Content: positive for [place] and positive for Poverty of Content Judgement: Poor Diagnostics Vital Signs (24Hr): Vital Signs - 24 hr 03/20/24 08:00 Respiratory Rate 16 BMI result Body Mass Index 32.6 Labs 02/27/24 08:24 Medications Medications Current Medications Acetaminophen (Acetaminophen 325 Mg Tablet) 650 mg PO Q6H PRN PRN Reason: Headache/Pain Mild Scale (1-3) Last Admin: 03/10/24 21:04 Dose: 650 mg Al Hydroxide/Mg Hydroxide (Magnesium Hydrox/Alum Hydrox 30 Ml Oral.Susp) 30 ml PO Q6H PRN PRN Reason: Heartburn/Nausea Diphenhydramine HCl (Diphenhydramine Hcl 25 Mg Capsule) 25 mg PO Q4H PRN PRN Reason: Itching Last Admin: 03/19/24 20:50 Dose: 25 mg Haloperidol (Haloperidol 5 Mg Tablet) 5 mg PO DAILY [facility] Last Admin: 03/20/24 08:10 Dose: 5 mg Haloperidol (Haloperidol 5 Mg Tablet) 10 mg PO BEDTIME [facility] Last Admin: 03/19/24 20:49 Dose: 10 mg Magnesium Hydroxide (Milk Of Magnesia 30 Ml Oral.Susp) 30 ml PO DAILY PRN PRN Reason: Constipation Multi-Ingred Cream/Lotion/Oil/Oint (Mineral Oil/Petrolatum,White 106 Gm Tube) 1 appl TOPICAL Q2H PRN; Protocol PRN Reason: affected areas of dry skin Nicotine Polacrilex (Nicotine Polacrilex 2 Mg Gum) 4 mg BUCCAL Q2H PRN PRN Reason: Nicotine Cravings Olanzapine (Olanzapine 5 Mg Tablet) 5 mg PO Q4H PRN PRN Reason: agitation Last Admin: 03/19/24 20:49 Dose: 5 mg Trazodone HCl (Trazodone Hcl 50 Mg Tablet) 50 mg PO BEDTIME MRX1 PRN PRN Reason: Insomnia Last Admin: 03/15/24 20:22 Dose: 50 mg Allergies Allergies Allergy/AdvReac Type Severity Reaction Status Date / Time No Known Allergies Allergy Verified 02/25/24 21:07 Assessment & Plan Assessment & Plan (1) Psychotic affective disorder: Status: Acute Code(s): F39 - Unspecified mood [affective] disorder Plan 03/16 Patient lying in bed , awake. She says tells inspector automatic typewriter she is okay. Business Loan Processor explained raising bedtime Haldol dose to which she said okay. Continue Haldol 5 mg daily Increase Haldol to 10 mg q.h.s. since patient has been on current dose for while and staff reports she is perhaps a little less paranoid meaning that Haldol may be proving effective. -given continued lice infestation, library technical assistant not able to gain access 03/18: Continue current regimen and plans 03/19: Continue current regimen and plans She has alleged lice,allowed exam Agree with another dose Permethrin. she allowed hygiene measures such as hair washing, Consider check HIV test. Plan 2. Continue with treatment of lice. 3. We will coordinate with [facility] since we can not legally treat her against her will. The case was discussed with senior management about treatment options. [facility] will come up with a plan. Today the director of [facility] called me and was unable to provide me more details or suggestions to help her. 4. On March 08 the patient was willing to have another course of permethrin but she refused we are trying again on March 09 but she refused again. On March 15 she agreed for permethrin and she was able to have a minor haircut and she allowed us to calm her her for needs. We will try to do it again early next week Reason for continued inpatient stay Substantial Risk for: inability to function, rapid decompensation and med/psych decompensation Time Spent With Patient Time: Total time managing care of this patient today __20__ minutes.
[2024-03-20] MEDS: diphenhydrAMINE HCL 25 MG CAPSULE PO (20:07)
[2024-03-20] MEDS: traZODone HCL 50 MG TABLET PO (20:08)
[2024-03-20] MEDS: OLANZapine 5 MG TABLET PO (20:08)
[2024-03-20] MEDS: HaloperidoL 5 MG TABLET 10 MG PO (20:08)
[2024-03-21 08:00] VITALS: RESP 18
[2024-03-21] MEDS: HaloperidoL 5 MG TABLET PO (08:07)
--- NOTE | 2024-03-21 12:24 | P.PNPSI_ITS ---
Subjective Subjective Date of Service: 03/21/24 Reason For Visit: Unspecified Psychotic Disorder Subjective Notes: Conditional Voluntary Interim History: The nursing staff reported the patient had been most of the time on her bed attention seeking asking for help constantly using the call ford. She slept 6 hours. On interview the patient remains paranoid we are going to try to take a shower next . Mental Status Exam Mental Status Exam Patient Appearance: Well Grooomed Patient Orientation: Person Level of Consciousness: Awake Patient Behavior: Guarded and Passive Mood Description: Withdrawn Affect Description: Constricted Patient Cognition Impaired: Yes Ability to Follow Directions: Good Speech Pattern: Clear Hallucinations: None Delusions: Paranoid Ideation and Ideas of Reference Thought Process: Distracted and Slowed Thinking Thought Content: positive for [place] and positive for Poverty of Content Judgement: Poor Diagnostics Vital Signs (24Hr): Vital Signs - 24 hr 03/21/24 08:00 Respiratory Rate 18 BMI result Body Mass Index 32.6 Labs 02/27/24 08:24 Medications Medications Current Medications Acetaminophen (Acetaminophen 325 Mg Tablet) 650 mg PO Q6H PRN PRN Reason: Headache/Pain Mild Scale (1-3) Last Admin: 03/10/24 21:04 Dose: 650 mg Al Hydroxide/Mg Hydroxide (Magnesium Hydrox/Alum Hydrox 30 Ml Oral.Susp) 30 ml PO Q6H PRN PRN Reason: Heartburn/Nausea Diphenhydramine HCl (Diphenhydramine Hcl 25 Mg Capsule) 25 mg PO Q4H PRN PRN Reason: Itching Last Admin: 03/20/24 20:07 Dose: 25 mg Haloperidol (Haloperidol 5 Mg Tablet) 5 mg PO DAILY [facility] Last Admin: 03/21/24 08:07 Dose: 5 mg Haloperidol (Haloperidol 5 Mg Tablet) 10 mg PO BEDTIME [facility] Last Admin: 03/20/24 20:08 Dose: 10 mg Magnesium Hydroxide (Milk Of Magnesia 30 Ml Oral.Susp) 30 ml PO DAILY PRN PRN Reason: Constipation Multi-Ingred Cream/Lotion/Oil/Oint (Mineral Oil/Petrolatum,White 106 Gm Tube) 1 appl TOPICAL Q2H PRN; Protocol PRN Reason: affected areas of dry skin Nicotine Polacrilex (Nicotine Polacrilex 2 Mg Gum) 4 mg BUCCAL Q2H PRN PRN Reason: Nicotine Cravings Olanzapine (Olanzapine 5 Mg Tablet) 5 mg PO Q4H PRN PRN Reason: agitation Last Admin: 03/20/24 20:08 Dose: 5 mg Trazodone HCl (Trazodone Hcl 50 Mg Tablet) 50 mg PO BEDTIME MRX1 PRN PRN Reason: Insomnia Last Admin: 03/20/24 20:08 Dose: 50 mg Allergies Allergies Allergy/AdvReac Type Severity Reaction Status Date / Time No Known Allergies Allergy Verified 02/25/24 21:07 Assessment & Plan Assessment & Plan (1) Psychotic affective disorder: Status: Acute Code(s): F39 - Unspecified mood [affective] disorder Plan 03/16 Patient lying in bed , awake. She says tells board writer she is okay. Php Programmer explained raising bedtime Haldol dose to which she said okay. Continue Haldol 5 mg daily Increase Haldol to 10 mg q.h.s. since patient has been on current dose for while and staff reports she is perhaps a little less paranoid meaning that Haldol may be proving effective. -given continued lice infestation, mechanical assembly technician not able to gain access 03/18: Continue current regimen and plans 03/19: Continue current regimen and plans She has alleged lice,allowed exam Agree with another dose Permethrin. she allowed hygiene measures such as hair washing, Consider check HIV test. Plan 2. Continue with treatment of lice. 3. We will coordinate with [facility] since we can not legally treat her against her will. The case was discussed with senior management about treatment options. [facility] will come up with a plan. Today the director of [facility] called me and was unable to provide me more details or suggestions to help her. 4. On March 08 the patient was willing to have another course of permethrin but she refused we are trying again on March 09 but she refused again. On March 15 she agreed for permethrin and she was able to have a minor haircut and she allowed us to calm her her for needs. We will try to do it again early next week Reason for continued inpatient stay Substantial Risk for: inability to function, rapid decompensation and med/psych decompensation Time Spent With Patient Time: Total time managing care of this patient today __20__ minutes.
[2024-03-21] MEDS: HaloperidoL 5 MG TABLET 10 MG PO (20:50)
[2024-03-22 08:00] VITALS: RESP 16
[2024-03-22] MEDS: HaloperidoL 5 MG TABLET PO (09:01)
--- NOTE | 2024-03-22 09:01 | HO.PSYCHPN ---
Subjective Subjective Date of Service: 03/22/24 Reason For Visit: Unspecified Psychotic Disorder Interim History: Pt seen, reviewed in team. Pt was in bed, had eye contact, did not offer verbal interaction. Appears calm, comfortable. Team report irritable mood. She is currently being treated for lice and needs to follow some isolation precautions. Team report improvement in her appetite. Medication Compliance: Intermittent Side effects from medications: No Attending Groups: No Review of Systems Acute medical concerns: No Review of Systems Review of Systems Yes Unobtainable due to mental status Mental Status Exam Mental Status Exam Patient Appearance: Appropriate Patient Orientation: Person Patient Behavior: Good Eye Contact Mood Description: Constricted Affect Description: Constricted Patient Cognition Impaired: Yes Ability to Follow Directions: Fair Speech Pattern: No Speech Judgement: Poor Diagnostics Vital Signs (24Hr): Vital Signs - 24 hr 03/22/24 08:00 Respiratory Rate 16 BMI result Body Mass Index 32.6 Labs 02/27/24 08:24 Medications Medications Current Medications Acetaminophen (Acetaminophen 325 Mg Tablet) 650 mg PO Q6H PRN PRN Reason: Headache/Pain Mild Scale (1-3) Last Admin: 03/10/24 21:04 Dose: 650 mg Al Hydroxide/Mg Hydroxide (Magnesium Hydrox/Alum Hydrox 30 Ml Oral.Susp) 30 ml PO Q6H PRN PRN Reason: Heartburn/Nausea Diphenhydramine HCl (Diphenhydramine Hcl 25 Mg Capsule) 25 mg PO Q4H PRN PRN Reason: Itching Last Admin: 03/20/24 20:07 Dose: 25 mg Haloperidol (Haloperidol 5 Mg Tablet) 5 mg PO DAILY [facility] Last Admin: 03/21/24 08:07 Dose: 5 mg Haloperidol (Haloperidol 5 Mg Tablet) 10 mg PO BEDTIME [facility] Last Admin: 03/21/24 20:50 Dose: 10 mg Magnesium Hydroxide (Milk Of Magnesia 30 Ml Oral.Susp) 30 ml PO DAILY PRN PRN Reason: Constipation Multi-Ingred Cream/Lotion/Oil/Oint (Mineral Oil/Petrolatum,White 106 Gm Tube) 1 appl TOPICAL Q2H PRN; Protocol PRN Reason: affected areas of dry skin Nicotine Polacrilex (Nicotine Polacrilex 2 Mg Gum) 4 mg BUCCAL Q2H PRN PRN Reason: Nicotine Cravings Olanzapine (Olanzapine 5 Mg Tablet) 5 mg PO Q4H PRN PRN Reason: agitation Last Admin: 03/20/24 20:08 Dose: 5 mg Trazodone HCl (Trazodone Hcl 50 Mg Tablet) 50 mg PO BEDTIME MRX1 PRN PRN Reason: Insomnia Last Admin: 03/20/24 20:08 Dose: 50 mg Allergies Allergies Allergy/AdvReac Type Severity Reaction Status Date / Time No Known Allergies Allergy Verified 02/25/24 21:07 Assessment & Plan Assessment & Plan (1) Psychotic affective disorder: Status: Acute Code(s): F39 - Unspecified mood [affective] disorder Plan 03/16 Patient lying in bed , awake. She says tells proposal manager writer she is okay. Development Editor explained raising bedtime Haldol dose to which she said okay. Continue Haldol 5 mg daily Increase Haldol to 10 mg q.h.s. since patient has been on current dose for while and staff reports she is perhaps a little less paranoid meaning that Haldol may be proving effective. -given continued lice infestation, technical illustrator not able to gain access 03/18: Continue current regimen and plans 03/19: Continue current regimen and plans She has alleged lice,allowed exam Agree with another dose Permethrin. she allowed hygiene measures such as hair washing, Consider check HIV test. 03/22: Continue current plan of care. Plan 2. Continue with treatment of lice. 3. We will coordinate with [facility] since we can not legally treat her against her will. The case was discussed with senior management about treatment options. [facility] will come up with a plan. Today the director of [facility] called me and was unable to provide me more details or suggestions to help her. 4. On March 08 the patient was willing to have another course of permethrin but she refused we are trying again on March 09 but she refused again. On March 15 she agreed for permethrin and she was able to have a minor haircut and she allowed us to calm her her for needs. We will try to do it again early next week Reason for continued inpatient stay Substantial Risk for: rapid decompensation Time Spent With Patient Time: Total time managing care of this patient today ____ minutes.
--- NOTE | 2024-03-22 16:09 | PC.NURSE ---
Patient has been sleeping since after 9am to [id number], tried numerous times to wake her up to get the Permethrin treatment for lies but she declined, Sumit Gallegos NP notified.
[2024-03-22 20:00] VITALS: RESP 16
[2024-03-22] MEDS: HaloperidoL 5 MG TABLET 10 MG PO (21:39)
[2024-03-23 08:00] VITALS: RESP 16
[2024-03-23] MEDS: HaloperidoL 5 MG TABLET PO (09:25)
--- NOTE | 2024-03-23 14:16 | P.PNPSI_ITS ---
Subjective Subjective Date of Service: 03/23/24 Reason For Visit: Unspecified Psychotic Disorder Subjective Notes: Conditional Voluntary Interim History: The nursing staff reported the patient refused breakfast and lunch yesterday her affect has been flat and slept 4 hours. She refused permethrin yesterday. Today the patient was isolative, the staff noticed that she was slightly tremulous. On physical exam there is evidence of mild EPS started on Cogentin today. Mental Status Exam Mental Status Exam Patient Orientation: Person and Situation Level of Consciousness: Awake and Appropriate Patient Behavior: Guarded and Passive Mood Description: Withdrawn Affect Description: Constricted Patient Cognition Impaired: Yes Ability to Follow Directions: Good Speech Pattern: Clear Hallucinations: None Delusions: Paranoid Ideation and Ideas of Reference Thought Process: Distracted and Slowed Thinking Thought Content: positive for [place] and positive for Poverty of Content Judgement: Poor Diagnostics Vital Signs (24Hr): Vital Signs - 24 hr 03/22/24 20:00 03/23/24 08:00 Respiratory Rate 16 16 BMI result Body Mass Index 32.6 Labs 02/27/24 08:24 Medications Medications Current Medications Acetaminophen (Acetaminophen 325 Mg Tablet) 650 mg PO Q6H PRN PRN Reason: Headache/Pain Mild Scale (1-3) Last Admin: 03/10/24 21:04 Dose: 650 mg Al Hydroxide/Mg Hydroxide (Magnesium Hydrox/Alum Hydrox 30 Ml Oral.Susp) 30 ml PO Q6H PRN PRN Reason: Heartburn/Nausea Diphenhydramine HCl (Diphenhydramine Hcl 25 Mg Capsule) 25 mg PO Q4H PRN PRN Reason: Itching Last Admin: 03/20/24 20:07 Dose: 25 mg Haloperidol (Haloperidol 5 Mg Tablet) 5 mg PO DAILY [facility] Last Admin: 03/23/24 09:25 Dose: 5 mg Haloperidol (Haloperidol 5 Mg Tablet) 10 mg PO BEDTIME [facility] Last Admin: 03/22/24 21:39 Dose: 10 mg Magnesium Hydroxide (Milk Of Magnesia 30 Ml Oral.Susp) 30 ml PO DAILY PRN PRN Reason: Constipation Multi-Ingred Cream/Lotion/Oil/Oint (Mineral Oil/Petrolatum,White 106 Gm Tube) 1 appl TOPICAL Q2H PRN; Protocol PRN Reason: affected areas of dry skin Nicotine Polacrilex (Nicotine Polacrilex 2 Mg Gum) 4 mg BUCCAL Q2H PRN PRN Reason: Nicotine Cravings Olanzapine (Olanzapine 5 Mg Tablet) 5 mg PO Q4H PRN PRN Reason: agitation Last Admin: 03/20/24 20:08 Dose: 5 mg Trazodone HCl (Trazodone Hcl 50 Mg Tablet) 50 mg PO BEDTIME MRX1 PRN PRN Reason: Insomnia Last Admin: 03/20/24 20:08 Dose: 50 mg Allergies Allergies Allergy/AdvReac Type Severity Reaction Status Date / Time No Known Allergies Allergy Verified 02/25/24 21:07 Assessment & Plan Assessment & Plan (1) Psychotic affective disorder: Status: Acute Code(s): F39 - Unspecified mood [affective] disorder Plan 03/16 Patient lying in bed , awake. She says tells fha underwriter she is okay. Radio Assembler explained raising bedtime Haldol dose to which she said okay. Continue Haldol 5 mg daily Increase Haldol to 10 mg q.h.s. since patient has been on current dose for while and staff reports she is perhaps a little less paranoid meaning that Haldol may be proving effective. -given continued lice infestation, compounding technician not able to gain access 03/18: Continue current regimen and plans 03/19: Continue current regimen and plans She has alleged lice,allowed exam Agree with another dose Permethrin. she allowed hygiene measures such as hair washing, Consider check HIV test. 03/22: Continue current plan of care. Plan 2. Continue with treatment of lice. 3. We will coordinate with [facility] since we can not legally treat her against her will. The case was discussed with senior management about treatment options. [facility] will come up with a plan. Today the director of [facility] called me and was unable to provide me more details or suggestions to help her. 4. On March 08 the patient was willing to have another course of permethrin but she refused we are trying again on March 09 but she refused again. On March 15 she agreed for permethrin and she was able to have a minor haircut and she allowed us to calm her her for needs. We will try to do it again early next week Reason for continued inpatient stay Substantial Risk for: inability to function, rapid decompensation and med/psych decompensation Time Spent With Patient Time: Total time managing care of this patient today _20___ minutes.
--- NOTE | 2024-03-23 14:19 | HO.PSYCHPN ---
Subjective Subjective Date of Service: 03/23/24 Reason For Visit: Unspecified Psychotic Disorder Subjective Notes: Conditional Voluntary Diagnostics Vital Signs (24Hr): Vital Signs - 24 hr 03/22/24 20:00 03/23/24 08:00 Respiratory Rate 16 16 BMI result Body Mass Index 32.6 Labs 02/27/24 08:24 Medications Medications Current Medications Acetaminophen (Acetaminophen 325 Mg Tablet) 650 mg PO Q6H PRN PRN Reason: Headache/Pain Mild Scale (1-3) Last Admin: 03/10/24 21:04 Dose: 650 mg Al Hydroxide/Mg Hydroxide (Magnesium Hydrox/Alum Hydrox 30 Ml Oral.Susp) 30 ml PO Q6H PRN PRN Reason: Heartburn/Nausea Benztropine Mesylate (Benztropine Mesylate 0.5 Mg Tablet) 0.5 mg PO BID [facility] Diphenhydramine HCl (Diphenhydramine Hcl 25 Mg Capsule) 25 mg PO Q4H PRN PRN Reason: Itching Last Admin: 03/20/24 20:07 Dose: 25 mg Haloperidol (Haloperidol 5 Mg Tablet) 5 mg PO DAILY [facility] Last Admin: 03/23/24 09:25 Dose: 5 mg Haloperidol (Haloperidol 5 Mg Tablet) 10 mg PO BEDTIME [facility] Last Admin: 03/22/24 21:39 Dose: 10 mg Magnesium Hydroxide (Milk Of Magnesia 30 Ml Oral.Susp) 30 ml PO DAILY PRN PRN Reason: Constipation Multi-Ingred Cream/Lotion/Oil/Oint (Mineral Oil/Petrolatum,White 106 Gm Tube) 1 appl TOPICAL Q2H PRN; Protocol PRN Reason: affected areas of dry skin Nicotine Polacrilex (Nicotine Polacrilex 2 Mg Gum) 4 mg BUCCAL Q2H PRN PRN Reason: Nicotine Cravings Olanzapine (Olanzapine 5 Mg Tablet) 5 mg PO Q4H PRN PRN Reason: agitation Last Admin: 03/20/24 20:08 Dose: 5 mg Trazodone HCl (Trazodone Hcl 50 Mg Tablet) 50 mg PO BEDTIME MRX1 PRN PRN Reason: Insomnia Last Admin: 03/20/24 20:08 Dose: 50 mg Allergies Allergies Allergy/AdvReac Type Severity Reaction Status Date / Time No Known Allergies Allergy Verified 02/25/24 21:07 Assessment & Plan Assessment & Plan (1) Psychotic affective disorder: Status: Acute Code(s): F39 - Unspecified mood [affective] disorder Plan 03/16 Patient lying in bed , awake. She says tells typewriter assembler she is okay. Second Baller explained raising bedtime Haldol dose to which she said okay. Continue Haldol 5 mg daily Increase Haldol to 10 mg q.h.s. since patient has been on current dose for while and staff reports she is perhaps a little less paranoid meaning that Haldol may be proving effective. -given continued lice infestation, aircraft engine technician not able to gain access 03/18: Continue current regimen and plans 03/19: Continue current regimen and plans She has alleged lice,allowed exam Agree with another dose Permethrin. she allowed hygiene measures such as hair washing, Consider check HIV test. 03/22: Continue current plan of care. Plan 2. Continue with treatment of lice. 3. We will coordinate with [facility] since we can not legally treat her against her will. The case was discussed with senior management about treatment options. [facility] will come up with a plan. Today the director of [facility] called me and was unable to provide me more details or suggestions to help her. 4. On March 08 the patient was willing to have another course of permethrin but she refused we are trying again on March 09 but she refused again. On March 15 she agreed for permethrin and she was able to have a minor haircut and she allowed us to calm her her for needs. We will try to do it again early next week Time Spent With Patient Time: Total time managing care of this patient today ____ minutes.
[2024-03-23 20:00] VITALS: BP 121/55; PULSE 78; RESP 16; TEMP 36.1; O2SAT 96
[2024-03-23] MEDS: Benztropine Mesylate 0.5 MG TABLET PO (21:17)
[2024-03-23] MEDS: HaloperidoL 5 MG TABLET 10 MG PO (21:18)
[2024-03-24] MEDS: diphenhydrAMINE HCL 25 MG CAPSULE PO ×2 (00:17→20:09)
[2024-03-24] MEDS: traZODone HCL 50 MG TABLET PO ×2 (00:17→02:19)
[2024-03-24] MEDS: Acetaminophen 325 MG TABLET 650 MG PO (02:19)
[2024-03-24] MEDS: OLANZapine 5 MG TABLET PO ×2 (02:19→20:09)
[2024-03-24 08:00] VITALS: RESP 16
[2024-03-24] MEDS: HaloperidoL 5 MG TABLET PO (08:04)
[2024-03-24] MEDS: Benztropine Mesylate 0.5 MG TABLET PO ×2 (08:04→20:09)
--- NOTE | 2024-03-24 09:08 | P.PNPSI_ITS ---
Subjective Subjective Date of Service: 03/24/24 Reason For Visit: Unspecified Psychotic Disorder Subjective Notes: Section 8 Interim History: Pt slept most of the night. Pt reports there is a lot going on and she is not alone. She reports many people are trying to harm her, but when asked who, she states I'm not saying more. She denies SI/HI. Medication Compliance: Yes Side effects from medications: No Attending Groups: No Review of Systems Review of Systems contact precautions for head lice Yes all other systems are reviewed and are negative and Unobtainable due to mental status Mental Status Exam Mental Status Exam Patient Appearance: Appropriate Patient Orientation: Person and Situation Level of Consciousness: Awake and Appropriate Patient Behavior: Guarded and Passive Mood Description: Withdrawn Affect Description: Constricted Patient Cognition Impaired: Yes Ability to Follow Directions: Good Speech Pattern: Clear Diagnostics Vital Signs (24Hr): Vital Signs - 24 hr 03/23/24 20:00 03/24/24 08:00 Temperature 97 F Pulse Rate 78 Respiratory Rate 16 16 Blood Pressure 121/55 L Pulse Oximetry 96 Oxygen Delivery Method Room Air BMI result Body Mass Index 32.6 Labs 02/27/24 08:24 Medications Medications Current Medications Acetaminophen (Acetaminophen 325 Mg Tablet) 650 mg PO Q6H PRN PRN Reason: Headache/Pain Mild Scale (1-3) Last Admin: 03/24/24 02:19 Dose: 650 mg Al Hydroxide/Mg Hydroxide (Magnesium Hydrox/Alum Hydrox 30 Ml Oral.Susp) 30 ml PO Q6H PRN PRN Reason: Heartburn/Nausea Benztropine Mesylate (Benztropine Mesylate 0.5 Mg Tablet) 0.5 mg PO BID [facility] Last Admin: 03/24/24 08:04 Dose: 0.5 mg Diphenhydramine HCl (Diphenhydramine Hcl 25 Mg Capsule) 25 mg PO Q4H PRN PRN Reason: Itching Last Admin: 03/24/24 00:17 Dose: 25 mg Haloperidol (Haloperidol 5 Mg Tablet) 5 mg PO DAILY [facility] Last Admin: 03/24/24 08:04 Dose: 5 mg Haloperidol (Haloperidol 5 Mg Tablet) 10 mg PO BEDTIME [facility] Last Admin: 03/23/24 21:18 Dose: 10 mg Magnesium Hydroxide (Milk Of Magnesia 30 Ml Oral.Susp) 30 ml PO DAILY PRN PRN Reason: Constipation Multi-Ingred Cream/Lotion/Oil/Oint (Mineral Oil/Petrolatum,White 106 Gm Tube) 1 appl TOPICAL Q2H PRN; Protocol PRN Reason: affected areas of dry skin Nicotine Polacrilex (Nicotine Polacrilex 2 Mg Gum) 4 mg BUCCAL Q2H PRN PRN Reason: Nicotine Cravings Olanzapine (Olanzapine 5 Mg Tablet) 5 mg PO Q4H PRN PRN Reason: agitation Last Admin: 03/24/24 02:19 Dose: 5 mg Trazodone HCl (Trazodone Hcl 50 Mg Tablet) 50 mg PO BEDTIME MRX1 PRN PRN Reason: Insomnia Last Admin: 03/24/24 02:19 Dose: 50 mg Allergies Allergies Allergy/AdvReac Type Severity Reaction Status Date / Time No Known Allergies Allergy Verified 02/25/24 21:07 Assessment & Plan Assessment & Plan (1) Schizophrenia: Status: Acute Code(s): F20.9 - Schizophrenia, unspecified Plan 03/24 will try to do permethni tx for lice if pt allows it Reason for continued inpatient stay Substantial Risk for: inability to function Time Spent With Patient Time: Total time managing care of this patient today ____ minutes.
[2024-03-24] MEDS: Permethrin 5 % Cream 60 GM TUBE 1 APPL TOPICAL (15:15)
[2024-03-24] MEDS: Permethrin 1 % Lotion 59 ML BTL 1 APPL TOPICAL (18:08)
[2024-03-24 20:00] VITALS: BP 120/50; PULSE 78; RESP 16; TEMP 36.2; O2SAT 96
[2024-03-24] MEDS: traZODone HCL 100 MG TABLET PO (20:09)
[2024-03-24] MEDS: HaloperidoL 5 MG TABLET 10 MG PO (20:10)
[2024-03-25 08:00] VITALS: RESP 16
[2024-03-25] MEDS: Benztropine Mesylate 0.5 MG TABLET PO ×2 (08:31→20:34)
[2024-03-25] MEDS: HaloperidoL 5 MG TABLET PO (08:31)
--- NOTE | 2024-03-25 15:20 | HO.PSYCHPN ---
Subjective Subjective Date of Service: 03/25/24 Reason For Visit: Unspecified Psychotic Disorder Interim History: Pt seen,discussed with the team. Plan of care reviewed. Pt reports back pain to team and declines intervention. Team report some improvement- pt is asking for help/assist at times and has increased her communication with the team. Pt is bed when seen, non verbal responses, sleeping, calm and without current distress. Medication Compliance: Yes Review of Systems Acute medical concerns: No Review of Systems Review of Systems Yes Unobtainable due to mental status Mental Status Exam Mental Status Exam Narrative: Calm, in bed, asleep Diagnostics Vital Signs (24Hr): Vital Signs - 24 hr 03/24/24 20:00 03/25/24 08:00 Temperature 97.2 F Pulse Rate 78 Respiratory Rate 16 16 Blood Pressure 120/50 L Pulse Oximetry 96 Oxygen Delivery Method Room Air BMI result Body Mass Index 32.6 Labs 02/27/24 08:24 Medications Medications Current Medications Acetaminophen (Acetaminophen 325 Mg Tablet) 650 mg PO Q6H PRN PRN Reason: Headache/Pain Mild Scale (1-3) Last Admin: 03/24/24 02:19 Dose: 650 mg Al Hydroxide/Mg Hydroxide (Magnesium Hydrox/Alum Hydrox 30 Ml Oral.Susp) 30 ml PO Q6H PRN PRN Reason: Heartburn/Nausea Benztropine Mesylate (Benztropine Mesylate 0.5 Mg Tablet) 0.5 mg PO BID [facility] Last Admin: 03/25/24 08:31 Dose: 0.5 mg Diphenhydramine HCl (Diphenhydramine Hcl 25 Mg Capsule) 25 mg PO Q4H PRN PRN Reason: Itching Last Admin: 03/24/24 20:09 Dose: 25 mg Haloperidol (Haloperidol 5 Mg Tablet) 5 mg PO DAILY [facility] Last Admin: 03/25/24 08:31 Dose: 5 mg Haloperidol (Haloperidol 5 Mg Tablet) 10 mg PO BEDTIME [facility] Last Admin: 03/24/24 20:10 Dose: 10 mg Magnesium Hydroxide (Milk Of Magnesia 30 Ml Oral.Susp) 30 ml PO DAILY PRN PRN Reason: Constipation Multi-Ingred Cream/Lotion/Oil/Oint (Mineral Oil/Petrolatum,White 106 Gm Tube) 1 appl TOPICAL Q2H PRN; Protocol PRN Reason: affected areas of dry skin Nicotine Polacrilex (Nicotine Polacrilex 2 Mg Gum) 4 mg BUCCAL Q2H PRN PRN Reason: Nicotine Cravings Olanzapine (Olanzapine 5 Mg Tablet) 5 mg PO Q4H PRN PRN Reason: agitation Last Admin: 03/24/24 20:09 Dose: 5 mg Trazodone HCl (Trazodone Hcl 100 Mg Tablet) 100 mg PO BEDTIME [facility] Last Admin: 03/24/24 20:09 Dose: 100 mg Trazodone HCl (Trazodone Hcl 50 Mg Tablet) 50 mg PO BEDTIME PRN PRN Reason: Sleep Allergies Allergies Allergy/AdvReac Type Severity Reaction Status Date / Time No Known Allergies Allergy Verified 02/25/24 21:07 Assessment & Plan Assessment & Plan (1) Schizophrenia: Status: Acute Code(s): F20.9 - Schizophrenia, unspecified Plan 03/24 will try to do permethni tx for lice if pt allows it 03/25 continue current regime and plan of care Reason for continued inpatient stay Substantial Risk for: rapid decompensation Time Spent With Patient Time: Total time managing care of this patient today ____ minutes.
[2024-03-25] MEDS: HaloperidoL 5 MG TABLET 10 MG PO (20:34)
[2024-03-25] MEDS: traZODone HCL 100 MG TABLET PO (20:34)
[2024-03-25] MEDS: diphenhydrAMINE HCL 25 MG CAPSULE PO (20:34)
[2024-03-26] MEDS: Benztropine Mesylate 0.5 MG TABLET PO ×2 (07:55→20:44)
[2024-03-26] MEDS: HaloperidoL 5 MG TABLET PO (07:55)
[2024-03-26 08:00] VITALS: RESP 18
[2024-03-26] MEDS: Acetaminophen 325 MG TABLET 650 MG PO ×2 (10:25→20:43)
--- NOTE | 2024-03-26 13:55 | P.PNPSI_ITS ---
Subjective Subjective Date of Service: 03/26/24 Reason For Visit: Unspecified Psychotic Disorder Interim History: Pt seen, reviewed with the team. Pt is alert and attentive when seen, appears bright, spontaneous smile. Team reports she is cooperative with care She tells team that she has left foot pain-they ask to monitor and do not want diagnostics at this time. Medication Compliance: Yes Side effects from medications: No Attending Groups: No Review of Systems Acute medical concerns: No Review of Systems Review of Systems Monitoring sx of left foot pain. Mental Status Exam Mental Status Exam Patient Appearance: Appropriate Patient Orientation: Person and Situation Level of Consciousness: Awake and Appropriate Patient Behavior: Passive Mood Description: Calm Affect Description: Calm Patient Cognition Impaired: Yes Ability to Follow Directions: Good Speech Pattern: Clear Hallucinations: None Thought Process: Slowed Thinking Thought Content: positive for [place] Judgement: Poor Diagnostics Vital Signs (24Hr): Vital Signs - 24 hr 03/26/24 08:00 Respiratory Rate 18 BMI result Body Mass Index 32.6 Labs 02/27/24 08:24 Medications Medications Current Medications Acetaminophen (Acetaminophen 325 Mg Tablet) 650 mg PO Q6H PRN PRN Reason: Headache/Pain Mild Scale (1-3) Last Admin: 03/26/24 10:25 Dose: 650 mg Al Hydroxide/Mg Hydroxide (Magnesium Hydrox/Alum Hydrox 30 Ml Oral.Susp) 30 ml PO Q6H PRN PRN Reason: Heartburn/Nausea Benztropine Mesylate (Benztropine Mesylate 0.5 Mg Tablet) 0.5 mg PO BID [facility] Last Admin: 03/26/24 07:55 Dose: 0.5 mg Diphenhydramine HCl (Diphenhydramine Hcl 25 Mg Capsule) 25 mg PO Q4H PRN PRN Reason: Itching Last Admin: 03/25/24 20:34 Dose: 25 mg Haloperidol (Haloperidol 5 Mg Tablet) 5 mg PO DAILY [facility] Last Admin: 03/26/24 07:55 Dose: 5 mg Haloperidol (Haloperidol 5 Mg Tablet) 10 mg PO BEDTIME [facility] Last Admin: 03/25/24 20:34 Dose: 10 mg Magnesium Hydroxide (Milk Of Magnesia 30 Ml Oral.Susp) 30 ml PO DAILY PRN PRN Reason: Constipation Multi-Ingred Cream/Lotion/Oil/Oint (Mineral Oil/Petrolatum,White 106 Gm Tube) 1 appl TOPICAL Q2H PRN; Protocol PRN Reason: affected areas of dry skin Nicotine Polacrilex (Nicotine Polacrilex 2 Mg Gum) 4 mg BUCCAL Q2H PRN PRN Reason: Nicotine Cravings Olanzapine (Olanzapine 5 Mg Tablet) 5 mg PO Q4H PRN PRN Reason: agitation Last Admin: 03/24/24 20:09 Dose: 5 mg Trazodone HCl (Trazodone Hcl 100 Mg Tablet) 100 mg PO BEDTIME [facility] Last Admin: 03/25/24 20:34 Dose: 100 mg Trazodone HCl (Trazodone Hcl 50 Mg Tablet) 50 mg PO BEDTIME PRN PRN Reason: Sleep Allergies Allergies Allergy/AdvReac Type Severity Reaction Status Date / Time No Known Allergies Allergy Verified 02/25/24 21:07 Assessment & Plan Assessment & Plan (1) Schizophrenia: Status: Acute Code(s): F20.9 - Schizophrenia, unspecified Plan 03/24 will try to do permethni tx for lice if pt allows it 03/25 continue current regime and plan of care 03/26 continue current regime and plan of care monitor report of L foot pain with team. Reason for continued inpatient stay Substantial Risk for: rapid decompensation Time Spent With Patient Time: Total time managing care of this patient today ____ minutes.
[2024-03-26 20:00] VITALS: RESP 16
[2024-03-26] MEDS: HaloperidoL 5 MG TABLET 10 MG PO (20:43)
[2024-03-26] MEDS: traZODone HCL 100 MG TABLET PO (20:44)
[2024-03-26] MEDS: diphenhydrAMINE HCL 25 MG CAPSULE PO (20:44)
[2024-03-27] MEDS: Acetaminophen 325 MG TABLET 650 MG PO (05:12)
[2024-03-27 07:57] VITALS: RESP 18
[2024-03-27] MEDS: Benztropine Mesylate 0.5 MG TABLET PO ×2 (08:15→20:01)
[2024-03-27] MEDS: HaloperidoL 5 MG TABLET PO (08:15)
--- NOTE | 2024-03-27 14:20 | P.PNPSI_ITS ---
Subjective Subjective Date of Service: 03/27/24 Reason For Visit: Unspecified Psychotic Disorder Subjective Notes: Conditional Voluntary Interim History: The nursing staff reported the patient had being slightly rigid, but she was able to participate on the permethrin treatment. We are consulting the hospitalist to clear her up so she can be placed. On interview the patient denies new symptoms Mental Status Exam Mental Status Exam Patient Appearance: Appropriate Patient Orientation: Person and Situation Level of Consciousness: Awake and Appropriate Patient Behavior: Guarded and Passive Mood Description: Withdrawn Affect Description: Constricted Patient Cognition Impaired: Yes Ability to Follow Directions: Good Speech Pattern: Clear Hallucinations: None Delusions: Paranoid Ideation and Thought Insert/Delete Thought Process: Distracted Thought Content: positive for [place] and positive for Circumstantial Judgement: Fair Diagnostics Vital Signs (24Hr): Vital Signs - 24 hr 03/26/24 20:00 03/27/24 07:57 Respiratory Rate 16 18 BMI result Body Mass Index 32.6 Labs 02/27/24 08:24 Medications Medications Current Medications Acetaminophen (Acetaminophen 325 Mg Tablet) 650 mg PO Q6H PRN PRN Reason: Headache/Pain Mild Scale (1-3) Last Admin: 03/27/24 05:12 Dose: 650 mg Al Hydroxide/Mg Hydroxide (Magnesium Hydrox/Alum Hydrox 30 Ml Oral.Susp) 30 ml PO Q6H PRN PRN Reason: Heartburn/Nausea Benztropine Mesylate (Benztropine Mesylate 0.5 Mg Tablet) 0.5 mg PO BID [facility] Last Admin: 03/27/24 08:15 Dose: 0.5 mg Diphenhydramine HCl (Diphenhydramine Hcl 25 Mg Capsule) 25 mg PO Q4H PRN PRN Reason: Itching Last Admin: 03/26/24 20:44 Dose: 25 mg Haloperidol (Haloperidol 5 Mg Tablet) 5 mg PO DAILY [facility] Last Admin: 03/27/24 08:15 Dose: 5 mg Haloperidol (Haloperidol 5 Mg Tablet) 10 mg PO BEDTIME [facility] Last Admin: 03/26/24 20:43 Dose: 10 mg Magnesium Hydroxide (Milk Of Magnesia 30 Ml Oral.Susp) 30 ml PO DAILY PRN PRN Reason: Constipation Multi-Ingred Cream/Lotion/Oil/Oint (Mineral Oil/Petrolatum,White 106 Gm Tube) 1 appl TOPICAL Q2H PRN; Protocol PRN Reason: affected areas of dry skin Nicotine Polacrilex (Nicotine Polacrilex 2 Mg Gum) 4 mg BUCCAL Q2H PRN PRN Reason: Nicotine Cravings Olanzapine (Olanzapine 5 Mg Tablet) 5 mg PO Q4H PRN PRN Reason: agitation Last Admin: 03/24/24 20:09 Dose: 5 mg Trazodone HCl (Trazodone Hcl 100 Mg Tablet) 100 mg PO BEDTIME [facility] Last Admin: 03/26/24 20:44 Dose: 100 mg Trazodone HCl (Trazodone Hcl 50 Mg Tablet) 50 mg PO BEDTIME PRN PRN Reason: Sleep Allergies Allergies Allergy/AdvReac Type Severity Reaction Status Date / Time No Known Allergies Allergy Verified 02/25/24 21:07 Assessment & Plan Assessment & Plan (1) Schizophrenia: Status: Acute Code(s): F20.9 - Schizophrenia, unspecified Plan 03/24 will try to do permethni tx for lice if pt allows it 03/25 continue current regime and plan of care 03/27 continue same treatment, hospitalist consult for clearance for placement Reason for continued inpatient stay Substantial Risk for: inability to function, rapid decompensation and med/psych decompensation Time Spent With Patient Time: Total time managing care of this patient today __30__ minutes.
[2024-03-27] MEDS: traZODone HCL 100 MG TABLET PO (20:01)
[2024-03-27] MEDS: HaloperidoL 5 MG TABLET 10 MG PO (20:01)
--- NOTE | 2024-03-27 21:31 | PM.EVENT ---
Event Note Date of Service: 03/27/24 Event Note: Patient consulted to re-evaluate for lice. She completed ivermectin x2 doses, last received 03/24. Patient is a poor historian and did not answer if she is still having any itching or noticed any lice in the last few days. No lice found on exam. ok to remove contact precautions. Time Spent With Patient Time: Total time managing care of this patient today ____ minutes.
[2024-03-28] MEDS: Acetaminophen 325 MG TABLET 650 MG PO (06:42)
[2024-03-28 08:00] VITALS: BP 130/70; PULSE 79; RESP 18; TEMP 36.1; O2SAT 97
[2024-03-28] MEDS: HaloperidoL 5 MG TABLET PO (08:32)
[2024-03-28] MEDS: Benztropine Mesylate 0.5 MG TABLET PO ×2 (08:32→20:32)
--- NOTE | 2024-03-28 13:49 | HO.PSYCHPN ---
Subjective Subjective Date of Service: 03/28/24 Reason For Visit: Unspecified Psychotic Disorder Subjective Notes: Conditional Voluntary Interim History: The nursing staff reported the patient had been compliant with treatment. She was cleared by the hospitalist yesterday no need of contact precautions since she had been clear of lice. The staff has reported the patient refused vital signs but she had been compliant with medications. On interview the patient denies new symptoms waiting for placement. Mental Status Exam Mental Status Exam Patient Appearance: Appropriate Patient Orientation: Person and Situation Level of Consciousness: Awake and Appropriate Patient Behavior: Guarded and Passive Mood Description: Withdrawn Affect Description: Constricted Patient Cognition Impaired: Yes Ability to Follow Directions: Good Speech Pattern: Clear Hallucinations: None Delusions: Paranoid Ideation Thought Process: Distracted and Slowed Thinking Thought Content: positive for [place] and positive for Poverty of Content Judgement: Poor Diagnostics Vital Signs (24Hr): Vital Signs - 24 hr 03/28/24 08:00 Temperature 97.0 F Pulse Rate 79 Respiratory Rate 18 Blood Pressure 130/70 Pulse Oximetry 97 Oxygen Delivery Method Room Air BMI result Body Mass Index 32.6 Labs 02/27/24 08:24 Medications Medications Current Medications Acetaminophen (Acetaminophen 325 Mg Tablet) 650 mg PO Q6H PRN PRN Reason: Headache/Pain Mild Scale (1-3) Last Admin: 03/28/24 06:42 Dose: 650 mg Al Hydroxide/Mg Hydroxide (Magnesium Hydrox/Alum Hydrox 30 Ml Oral.Susp) 30 ml PO Q6H PRN PRN Reason: Heartburn/Nausea Benztropine Mesylate (Benztropine Mesylate 0.5 Mg Tablet) 0.5 mg PO BID [facility] Last Admin: 03/28/24 08:32 Dose: 0.5 mg Diphenhydramine HCl (Diphenhydramine Hcl 25 Mg Capsule) 25 mg PO Q4H PRN PRN Reason: Itching Last Admin: 03/26/24 20:44 Dose: 25 mg Haloperidol (Haloperidol 5 Mg Tablet) 5 mg PO DAILY [facility] Last Admin: 03/28/24 08:32 Dose: 5 mg Haloperidol (Haloperidol 5 Mg Tablet) 10 mg PO BEDTIME [facility] Last Admin: 03/27/24 20:01 Dose: 10 mg Magnesium Hydroxide (Milk Of Magnesia 30 Ml Oral.Susp) 30 ml PO DAILY PRN PRN Reason: Constipation Multi-Ingred Cream/Lotion/Oil/Oint (Mineral Oil/Petrolatum,White 106 Gm Tube) 1 appl TOPICAL Q2H PRN; Protocol PRN Reason: affected areas of dry skin Nicotine Polacrilex (Nicotine Polacrilex 2 Mg Gum) 4 mg BUCCAL Q2H PRN PRN Reason: Nicotine Cravings Olanzapine (Olanzapine 5 Mg Tablet) 5 mg PO Q4H PRN PRN Reason: agitation Last Admin: 03/24/24 20:09 Dose: 5 mg Trazodone HCl (Trazodone Hcl 100 Mg Tablet) 100 mg PO BEDTIME [facility] Last Admin: 03/27/24 20:01 Dose: 100 mg Trazodone HCl (Trazodone Hcl 50 Mg Tablet) 50 mg PO BEDTIME PRN PRN Reason: Sleep Allergies Allergies Allergy/AdvReac Type Severity Reaction Status Date / Time No Known Allergies Allergy Verified 02/25/24 21:07 Assessment & Plan Assessment & Plan (1) Schizophrenia: Status: Acute Code(s): F20.9 - Schizophrenia, unspecified Plan The patient is a 79-year-old [place] female, chronically homeless with a past history of schizophrenia who was referred from the emergency room of [facility] since the patient was grossly disorganized unable to take care of herself infested with lice. Transferring to this facility for psychiatric stabilization. Plan 1. Continue Haldol that historically has helped her. According to [facility] the patient responded to this medication. 2. At this moment the patient had been cleared from contact precautions since there was no evidence of lice or scabies. 3. Working on discharge planning. Reason for continued inpatient stay Substantial Risk for: inability to function, rapid decompensation and med/psych decompensation Time Spent With Patient Time: Total time managing care of this patient today _20___ minutes.
[2024-03-28] MEDS: traZODone HCL 100 MG TABLET PO (20:31)
[2024-03-28] MEDS: HaloperidoL 5 MG TABLET 10 MG PO (20:31)
[2024-03-28] MEDS: diphenhydrAMINE HCL 25 MG CAPSULE PO (20:31)
[2024-03-29 08:00] VITALS: RESP 16
[2024-03-29] MEDS: HaloperidoL 5 MG TABLET PO (08:35)
[2024-03-29] MEDS: Benztropine Mesylate 0.5 MG TABLET PO ×2 (08:35→20:59)
--- NOTE | 2024-03-29 17:08 | P.PNPSI_ITS ---
Subjective Subjective Date of Service: 03/29/24 Reason For Visit: Unspecified Psychotic Disorder Interim History: met with patient; discussed with team no change in presentation; intermittently irritable, demanding with staff; taking meds pt remains with nits(lice eggs) in hair, observed by fha underwriter; will place back on precautions Mental Status Exam Mental Status Exam Patient Appearance: Unkempt Patient Orientation: Person and Place Level of Consciousness: Awake and Appropriate Patient Behavior: Guarded and Passive Mood Description: Angry (irritable) Affect Description: Constricted Patient Cognition Impaired: Yes Ability to Follow Directions: Good Speech Pattern: Clear Hallucinations: None (denies) Delusions: Paranoid Ideation Thought Process: Distracted and Slowed Thinking Thought Content: positive for [place] and positive for Poverty of Content Judgement: Poor Judgement and Insight: impaired Diagnostics Vital Signs (24Hr): Vital Signs - 24 hr 03/29/24 08:00 Respiratory Rate 16 BMI result Body Mass Index 32.6 Labs 02/27/24 08:24 Medications Medications Current Medications Acetaminophen (Acetaminophen 325 Mg Tablet) 650 mg PO Q6H PRN PRN Reason: Headache/Pain Mild Scale (1-3) Last Admin: 03/28/24 06:42 Dose: 650 mg Al Hydroxide/Mg Hydroxide (Magnesium Hydrox/Alum Hydrox 30 Ml Oral.Susp) 30 ml PO Q6H PRN PRN Reason: Heartburn/Nausea Benztropine Mesylate (Benztropine Mesylate 0.5 Mg Tablet) 0.5 mg PO BID [facility] Last Admin: 03/29/24 08:35 Dose: 0.5 mg Diphenhydramine HCl (Diphenhydramine Hcl 25 Mg Capsule) 25 mg PO Q4H PRN PRN Reason: Itching Last Admin: 03/28/24 20:31 Dose: 25 mg Haloperidol (Haloperidol 5 Mg Tablet) 5 mg PO DAILY [facility] Last Admin: 03/29/24 08:35 Dose: 5 mg Haloperidol (Haloperidol 5 Mg Tablet) 10 mg PO BEDTIME [facility] Last Admin: 03/28/24 20:31 Dose: 10 mg Magnesium Hydroxide (Milk Of Magnesia 30 Ml Oral.Susp) 30 ml PO DAILY PRN PRN Reason: Constipation Multi-Ingred Cream/Lotion/Oil/Oint (Mineral Oil/Petrolatum,White 106 Gm Tube) 1 appl TOPICAL Q2H PRN; Protocol PRN Reason: affected areas of dry skin Nicotine Polacrilex (Nicotine Polacrilex 2 Mg Gum) 4 mg BUCCAL Q2H PRN PRN Reason: Nicotine Cravings Olanzapine (Olanzapine 5 Mg Tablet) 5 mg PO Q4H PRN PRN Reason: agitation Last Admin: 03/24/24 20:09 Dose: 5 mg Trazodone HCl (Trazodone Hcl 100 Mg Tablet) 100 mg PO BEDTIME [facility] Last Admin: 03/28/24 20:31 Dose: 100 mg Trazodone HCl (Trazodone Hcl 50 Mg Tablet) 50 mg PO BEDTIME PRN PRN Reason: Sleep Allergies Allergies Allergy/AdvReac Type Severity Reaction Status Date / Time No Known Allergies Allergy Verified 02/25/24 21:07 Assessment & Plan Assessment & Plan (1) Schizophrenia: Status: Acute Code(s): F20.9 - Schizophrenia, unspecified Plan 03/24 will try to do permethni tx for lice if pt allows it 03/25 continue current regime and plan of care 03/26 continue current regime and plan of care monitor report of L foot pain with team. 03/29/24 pt remains with nits(lice eggs) in hair, observed by fha underwriter; will place back on precautions Patient educated on: diagnosis, medication risk/benefits and medical condition Informed Consent: understands, does not understand and further education needed Reason for continued inpatient stay Substantial Risk for: inability to function Time Spent With Patient Time: Total time managing care of this patient today ____ minutes.
[2024-03-29] MEDS: traZODone HCL 100 MG TABLET PO (20:58)
[2024-03-29] MEDS: HaloperidoL 5 MG TABLET 10 MG PO (20:59)
[2024-03-30] MEDS: HaloperidoL 5 MG TABLET PO (10:14)
[2024-03-30] MEDS: Benztropine Mesylate 0.5 MG TABLET PO ×2 (10:14→19:55)
--- NOTE | 2024-03-30 12:04 | HO.PSYCHPN ---
Subjective Subjective Date of Service: 03/30/24 Reason For Visit: Unspecified Psychotic Disorder Subjective Notes: Conditional Voluntary Interim History: The nursing staff reported the patient had been seen with lice so she is on contact precautions again, she had been med compliant. Today we had a family meeting with all her providers attend 34 discharge planning. On interview the patient denies new symptoms. Mental Status Exam Mental Status Exam Patient Appearance: Appropriate and Unkempt Patient Orientation: Person Level of Consciousness: Awake and Appropriate Patient Behavior: Guarded and Passive Mood Description: Withdrawn Affect Description: Constricted Patient Cognition Impaired: Yes Ability to Follow Directions: Good Speech Pattern: Clear Hallucinations: None Delusions: Paranoid Ideation and Ideas of Reference Thought Process: Distracted and Slowed Thinking Thought Content: positive for [place] and positive for Poverty of Content Judgement: Poor Diagnostics Vital Signs (24Hr): BMI result Body Mass Index 32.6 Labs 02/27/24 08:24 Medications Medications Current Medications Acetaminophen (Acetaminophen 325 Mg Tablet) 650 mg PO Q6H PRN PRN Reason: Headache/Pain Mild Scale (1-3) Last Admin: 03/28/24 06:42 Dose: 650 mg Al Hydroxide/Mg Hydroxide (Magnesium Hydrox/Alum Hydrox 30 Ml Oral.Susp) 30 ml PO Q6H PRN PRN Reason: Heartburn/Nausea Benztropine Mesylate (Benztropine Mesylate 0.5 Mg Tablet) 0.5 mg PO BID [facility] Last Admin: 03/30/24 10:14 Dose: 0.5 mg Diphenhydramine HCl (Diphenhydramine Hcl 25 Mg Capsule) 25 mg PO Q4H PRN PRN Reason: Itching Last Admin: 03/28/24 20:31 Dose: 25 mg Haloperidol (Haloperidol 5 Mg Tablet) 5 mg PO DAILY [facility] Last Admin: 03/30/24 10:14 Dose: 5 mg Haloperidol (Haloperidol 5 Mg Tablet) 10 mg PO BEDTIME [facility] Last Admin: 03/29/24 20:59 Dose: 10 mg Magnesium Hydroxide (Milk Of Magnesia 30 Ml Oral.Susp) 30 ml PO DAILY PRN PRN Reason: Constipation Multi-Ingred Cream/Lotion/Oil/Oint (Mineral Oil/Petrolatum,White 106 Gm Tube) 1 appl TOPICAL Q2H PRN; Protocol PRN Reason: affected areas of dry skin Nicotine Polacrilex (Nicotine Polacrilex 2 Mg Gum) 4 mg BUCCAL Q2H PRN PRN Reason: Nicotine Cravings Olanzapine (Olanzapine 5 Mg Tablet) 5 mg PO Q4H PRN PRN Reason: agitation Last Admin: 03/24/24 20:09 Dose: 5 mg Trazodone HCl (Trazodone Hcl 100 Mg Tablet) 100 mg PO BEDTIME [facility] Last Admin: 03/29/24 20:58 Dose: 100 mg Trazodone HCl (Trazodone Hcl 50 Mg Tablet) 50 mg PO BEDTIME PRN PRN Reason: Sleep Allergies Allergies Allergy/AdvReac Type Severity Reaction Status Date / Time No Known Allergies Allergy Verified 02/25/24 21:07 Assessment & Plan Assessment & Plan (1) Schizophrenia: Status: Acute Code(s): F20.9 - Schizophrenia, unspecified Plan Elderly Citizen Of [place] female with a long history of psychosis and chronic homelessness referred from [facility] for exacerbation of psychosis and lice infestation due to self neglect. Plan 1. Continue with Haldol 5 mg p.o. q.a.m. and 10 mg p.o. q.h.s.. 2. Permethrin 3rd course of treatment order on March 30. 3. We had on March 30 a family meeting with [facility] for discharge planning. 4. Continue 15 minute checks. Reason for continued inpatient stay Substantial Risk for: inability to function, rapid decompensation and med/psych decompensation Time Spent With Patient Time: Total time managing care of this patient today __20__ minutes.
[2024-03-30] MEDS: Permethrin 1 % Lotion 59 ML BTL 1 APPL TOPICAL (13:31)
[2024-03-30 19:34] VITALS: BP 122/60; PULSE 87; TEMP 36.2; O2SAT 94
[2024-03-30] MEDS: HaloperidoL 5 MG TABLET 10 MG PO (19:55)
[2024-03-30] MEDS: traZODone HCL 100 MG TABLET PO (19:55)
[2024-03-31] MEDS: Benztropine Mesylate 0.5 MG TABLET PO ×2 (10:25→22:12)
[2024-03-31] MEDS: HaloperidoL 5 MG TABLET PO (10:26)
--- NOTE | 2024-03-31 13:41 | P.PNPSI_ITS ---
Subjective Subjective Date of Service: 03/31/24 Reason For Visit: Unspecified Psychotic Disorder Subjective Notes: Conditional Voluntary Interim History: The nursing staff reported the patient had been irritable at times but redirectable. She is very attention seeking at times. The staff reported that yesterday she had another permethrin treatment. The social worker aide had a meeting with the whole team of [facility] and in the custodial she can has VNA and home health attendant. On interview the patient denies new symptoms waiting for placement. Mental Status Exam Mental Status Exam Patient Appearance: Appropriate Patient Orientation: Person and Situation Level of Consciousness: Awake and Appropriate Patient Behavior: Guarded and Passive Mood Description: Withdrawn Affect Description: Constricted Patient Cognition Impaired: Yes Ability to Follow Directions: Good Speech Pattern: Clear Hallucinations: None Delusions: Paranoid Ideation and Ideas of Reference Thought Process: Distracted and Slowed Thinking Thought Content: positive for [place] and positive for Poverty of Content Judgement: Fair Diagnostics Vital Signs (24Hr): Vital Signs - 24 hr 03/30/24 19:34 Temperature 97.1 F Pulse Rate 87 Blood Pressure 122/60 Pulse Oximetry 94 Oxygen Delivery Method Room Air BMI result Body Mass Index 32.6 Labs 02/27/24 08:24 Medications Medications Current Medications Acetaminophen (Acetaminophen 325 Mg Tablet) 650 mg PO Q6H PRN PRN Reason: Headache/Pain Mild Scale (1-3) Last Admin: 03/28/24 06:42 Dose: 650 mg Al Hydroxide/Mg Hydroxide (Magnesium Hydrox/Alum Hydrox 30 Ml Oral.Susp) 30 ml PO Q6H PRN PRN Reason: Heartburn/Nausea Benztropine Mesylate (Benztropine Mesylate 0.5 Mg Tablet) 0.5 mg PO BID [facility] Last Admin: 03/31/24 10:25 Dose: 0.5 mg Diphenhydramine HCl (Diphenhydramine Hcl 25 Mg Capsule) 25 mg PO Q4H PRN PRN Reason: Itching Last Admin: 03/28/24 20:31 Dose: 25 mg Haloperidol (Haloperidol 5 Mg Tablet) 5 mg PO DAILY [facility] Last Admin: 03/31/24 10:26 Dose: 5 mg Haloperidol (Haloperidol 5 Mg Tablet) 10 mg PO BEDTIME [facility] Last Admin: 03/30/24 19:55 Dose: 10 mg Magnesium Hydroxide (Milk Of Magnesia 30 Ml Oral.Susp) 30 ml PO DAILY PRN PRN Reason: Constipation Multi-Ingred Cream/Lotion/Oil/Oint (Mineral Oil/Petrolatum,White 106 Gm Tube) 1 appl TOPICAL Q2H PRN; Protocol PRN Reason: affected areas of dry skin Nicotine Polacrilex (Nicotine Polacrilex 2 Mg Gum) 4 mg BUCCAL Q2H PRN PRN Reason: Nicotine Cravings Olanzapine (Olanzapine 5 Mg Tablet) 5 mg PO Q4H PRN PRN Reason: agitation Last Admin: 03/24/24 20:09 Dose: 5 mg Trazodone HCl (Trazodone Hcl 100 Mg Tablet) 100 mg PO BEDTIME [facility] Last Admin: 03/30/24 19:55 Dose: 100 mg Trazodone HCl (Trazodone Hcl 50 Mg Tablet) 50 mg PO BEDTIME PRN PRN Reason: Sleep Allergies Allergies Allergy/AdvReac Type Severity Reaction Status Date / Time No Known Allergies Allergy Verified 02/25/24 21:07 Assessment & Plan Assessment & Plan (1) Schizophrenia: Status: Acute Code(s): F20.9 - Schizophrenia, unspecified Plan Elderly Nigerien female with a long history of psychosis and chronic homelessness referred from [facility] for exacerbation of psychosis and lice infestation due to self neglect. Plan 1. Continue with Haldol 5 mg p.o. q.a.m. and 10 mg p.o. q.h.s.. 2. Permethrin 3rd course of treatment order on March 30. 3. We had on March 30 a family meeting with [facility] for discharge planning. 4. Continue 15 minute checks. Reason for continued inpatient stay Substantial Risk for: inability to function, rapid decompensation and med/psych decompensation Time Spent With Patient Time: Total time managing care of this patient today __20__ minutes.
[2024-03-31 20:00] VITALS: RESP 16
[2024-03-31] MEDS: traZODone HCL 100 MG TABLET PO (22:11)
[2024-03-31] MEDS: HaloperidoL 5 MG TABLET 10 MG PO (22:11)
[2024-04-01 09:02] VITALS: RESP 17
--- NOTE | 2024-04-01 09:42 | P.PNPSI_ITS ---
Subjective Subjective Date of Service: 04/01/24 Reason For Visit: Unspecified Psychotic Disorder Interim History: met with patient. Discussed with Nursing. Remains on contact precautions. Intermittently refusing medications. With insurance underwriter sales very pleasant, reports feeling safe. Does have clear cognitive impairment for example knew she was in the hospital, unable to name what city. When asked how long stated she was here at least 1 day ( date of admission 02/25/2024). denied depression or SI. Medication Compliance: Yes Side effects from medications: No Attending Groups: No Review of Systems Acute medical concerns: No Review of Systems Review of Systems unremarkable Mental Status Exam Mental Status Exam Narrative: Calm, in bed, asleep Patient Appearance: Appropriate Patient Orientation: Person and Situation Level of Consciousness: Awake and Appropriate Patient Behavior: Guarded and Passive Mood Description: Withdrawn Affect Description: Constricted Patient Cognition Impaired: Yes Ability to Follow Directions: Good Speech Pattern: Clear Memory Description: Remote Impaired and Recent Impaired Diagnostics Vital Signs (24Hr): Vital Signs - 24 hr 03/31/24 20:00 04/01/24 09:02 Respiratory Rate 16 17 BMI result Body Mass Index 32.6 Labs 02/27/24 08:24 Medications Medications Current Medications Acetaminophen (Acetaminophen 325 Mg Tablet) 650 mg PO Q6H PRN PRN Reason: Headache/Pain Mild Scale (1-3) Last Admin: 03/28/24 06:42 Dose: 650 mg Al Hydroxide/Mg Hydroxide (Magnesium Hydrox/Alum Hydrox 30 Ml Oral.Susp) 30 ml PO Q6H PRN PRN Reason: Heartburn/Nausea Benztropine Mesylate (Benztropine Mesylate 0.5 Mg Tablet) 0.5 mg PO BID [facility] Last Admin: 04/01/24 09:00 Dose: Not Given Diphenhydramine HCl (Diphenhydramine Hcl 25 Mg Capsule) 25 mg PO Q4H PRN PRN Reason: Itching Last Admin: 03/28/24 20:31 Dose: 25 mg Haloperidol (Haloperidol 5 Mg Tablet) 5 mg PO DAILY [facility] Last Admin: 04/01/24 09:00 Dose: Not Given Haloperidol (Haloperidol 5 Mg Tablet) 10 mg PO BEDTIME [facility] Last Admin: 03/31/24 22:11 Dose: 10 mg Magnesium Hydroxide (Milk Of Magnesia 30 Ml Oral.Susp) 30 ml PO DAILY PRN PRN Reason: Constipation Multi-Ingred Cream/Lotion/Oil/Oint (Mineral Oil/Petrolatum,White 106 Gm Tube) 1 appl TOPICAL Q2H PRN; Protocol PRN Reason: affected areas of dry skin Nicotine Polacrilex (Nicotine Polacrilex 2 Mg Gum) 4 mg BUCCAL Q2H PRN PRN Reason: Nicotine Cravings Olanzapine (Olanzapine 5 Mg Tablet) 5 mg PO Q4H PRN PRN Reason: agitation Last Admin: 03/24/24 20:09 Dose: 5 mg Trazodone HCl (Trazodone Hcl 100 Mg Tablet) 100 mg PO BEDTIME [facility] Last Admin: 03/31/24 22:11 Dose: 100 mg Trazodone HCl (Trazodone Hcl 50 Mg Tablet) 50 mg PO BEDTIME PRN PRN Reason: Sleep Allergies Allergies Allergy/AdvReac Type Severity Reaction Status Date / Time No Known Allergies Allergy Verified 02/25/24 21:07 Assessment & Plan Assessment & Plan (1) Schizophrenia: Status: Acute Code(s): F20.9 - Schizophrenia, unspecified Plan Elderly Bahamian female with a long history of psychosis and chronic homelessness referred from [facility] for exacerbation of psychosis and lice infestation due to self neglect. Plan 1. Continue with Haldol 5 mg p.o. q.a.m. and 10 mg p.o. q.h.s.. 2. Permethrin 3rd course of treatment order on March 30. 3. We had on March 30 a family meeting with [facility] for discharge planning. 4. Continue 15 minute checks. 04/01/2024: No changes Reason for continued inpatient stay Substantial Risk for: inability to function Time Spent With Patient Time: Total time managing care of this patient today ____ minutes.
[2024-04-01 20:00] VITALS: BP 142/67; PULSE 70; RESP 16; TEMP 36.2; O2SAT 96
[2024-04-01] MEDS: Benztropine Mesylate 0.5 MG TABLET PO (21:44)
[2024-04-01] MEDS: traZODone HCL 100 MG TABLET PO (21:44)
[2024-04-01] MEDS: traZODone HCL 50 MG TABLET PO (21:44)
[2024-04-01] MEDS: HaloperidoL 5 MG TABLET 10 MG PO (21:44)
[2024-04-02 08:00] VITALS: RESP 16
--- NOTE | 2024-04-02 08:26 | HO.PSYCHPN ---
Subjective Subjective Date of Service: 04/02/24 Reason For Visit: Unspecified Psychotic Disorder Interim History: met with patient. Discussed with Nursing. Remains on contact precautions. Intermittently refusing medications. With service writer pleasant, asked for a blanket as she felt cold. Reports feeling safe. Denied depression or SI. Medication Compliance: Intermittent Side effects from medications: No Attending Groups: No Review of Systems Acute medical concerns: No Review of Systems Review of Systems unremarkable Mental Status Exam Mental Status Exam Narrative: Calm, in bed, asleep Patient Appearance: Appropriate Patient Orientation: Person and Situation Level of Consciousness: Awake and Appropriate Patient Behavior: Guarded and Passive Mood Description: Withdrawn Affect Description: Constricted Patient Cognition Impaired: Yes Ability to Follow Directions: Good Speech Pattern: Clear Memory Description: Remote Impaired and Recent Impaired Diagnostics Vital Signs (24Hr): Vital Signs - 24 hr 04/01/24 09:02 04/01/24 20:00 Temperature 97.1 F Pulse Rate 70 Respiratory Rate 17 16 Blood Pressure 142/67 H Pulse Oximetry 96 Oxygen Delivery Method Room Air BMI result Body Mass Index 32.6 Labs 02/27/24 08:24 Medications Medications Current Medications Acetaminophen (Acetaminophen 325 Mg Tablet) 650 mg PO Q6H PRN PRN Reason: Headache/Pain Mild Scale (1-3) Last Admin: 03/28/24 06:42 Dose: 650 mg Al Hydroxide/Mg Hydroxide (Magnesium Hydrox/Alum Hydrox 30 Ml Oral.Susp) 30 ml PO Q6H PRN PRN Reason: Heartburn/Nausea Benztropine Mesylate (Benztropine Mesylate 0.5 Mg Tablet) 0.5 mg PO BID [facility] Last Admin: 04/01/24 21:44 Dose: 0.5 mg Diphenhydramine HCl (Diphenhydramine Hcl 25 Mg Capsule) 25 mg PO Q4H PRN PRN Reason: Itching Last Admin: 03/28/24 20:31 Dose: 25 mg Haloperidol (Haloperidol 5 Mg Tablet) 5 mg PO DAILY [facility] Last Admin: 04/01/24 09:00 Dose: Not Given Haloperidol (Haloperidol 5 Mg Tablet) 10 mg PO BEDTIME [facility] Last Admin: 04/01/24 21:44 Dose: 10 mg Magnesium Hydroxide (Milk Of Magnesia 30 Ml Oral.Susp) 30 ml PO DAILY PRN PRN Reason: Constipation Multi-Ingred Cream/Lotion/Oil/Oint (Mineral Oil/Petrolatum,White 106 Gm Tube) 1 appl TOPICAL Q2H PRN; Protocol PRN Reason: affected areas of dry skin Nicotine Polacrilex (Nicotine Polacrilex 2 Mg Gum) 4 mg BUCCAL Q2H PRN PRN Reason: Nicotine Cravings Olanzapine (Olanzapine 5 Mg Tablet) 5 mg PO Q4H PRN PRN Reason: agitation Last Admin: 03/24/24 20:09 Dose: 5 mg Trazodone HCl (Trazodone Hcl 100 Mg Tablet) 100 mg PO BEDTIME [facility] Last Admin: 04/01/24 21:44 Dose: 100 mg Trazodone HCl (Trazodone Hcl 50 Mg Tablet) 50 mg PO BEDTIME PRN PRN Reason: Sleep Last Admin: 04/01/24 21:44 Dose: 50 mg Allergies Allergies Allergy/AdvReac Type Severity Reaction Status Date / Time No Known Allergies Allergy Verified 02/25/24 21:07 Assessment & Plan Assessment & Plan (1) Schizophrenia: Status: Acute Code(s): F20.9 - Schizophrenia, unspecified Plan Elderly [place] female with a long history of psychosis and chronic homelessness referred from [facility] for exacerbation of psychosis and lice infestation due to self neglect. Plan 1. Continue with Haldol 5 mg p.o. q.a.m. and 10 mg p.o. q.h.s.. 2. Permethrin 3rd course of treatment order on March 30. 3. We had on March 30 a family meeting with [facility] for discharge planning. 4. Continue 15 minute checks. 04/02/2024: continue current plan Reason for continued inpatient stay Substantial Risk for: inability to function and rapid decompensation Time Spent With Patient Time: Total time managing care of this patient today ____ minutes.
[2024-04-02] MEDS: HaloperidoL 5 MG TABLET PO (13:35)
[2024-04-02] MEDS: Benztropine Mesylate 0.5 MG TABLET PO ×2 (13:35→20:45)
[2024-04-02] MEDS: HaloperidoL 5 MG TABLET 10 MG PO (20:45)
[2024-04-02] MEDS: traZODone HCL 100 MG TABLET PO (20:45)
[2024-04-03] MEDS: Benztropine Mesylate 0.5 MG TABLET PO ×2 (09:02→21:06)
[2024-04-03] MEDS: HaloperidoL 5 MG TABLET PO (09:02)
--- NOTE | 2024-04-03 14:18 | HO.PSYCHPN ---
Subjective Subjective Date of Service: 04/03/24 Reason For Visit: Unspecified Psychotic Disorder Subjective Notes: Conditional Voluntary Interim History: The nursing staff reported the patient refused her vital signs and she needed to encourage a lot for compliance of her medications. She is confused attention seeking. The social welfare administrator reported that we are going to have a hearing for his guardianship on April 07. I ordered an OT assessment. Mental Status Exam Mental Status Exam Patient Appearance: Disheveled Patient Orientation: Person and Situation Level of Consciousness: Awake Patient Behavior: Guarded and Passive Mood Description: Withdrawn Affect Description: Constricted Patient Cognition Impaired: Yes Ability to Follow Directions: Good Speech Pattern: Clear Hallucinations: None Delusions: Ideas of Reference Thought Process: Distracted and Slowed Thinking Thought Content: positive for [place] and positive for Poverty of Content Judgement: Fair Diagnostics Vital Signs (24Hr): BMI result Body Mass Index 32.6 Labs 02/27/24 08:24 Medications Medications Current Medications Acetaminophen (Acetaminophen 325 Mg Tablet) 650 mg PO Q6H PRN PRN Reason: Headache/Pain Mild Scale (1-3) Last Admin: 03/28/24 06:42 Dose: 650 mg Al Hydroxide/Mg Hydroxide (Magnesium Hydrox/Alum Hydrox 30 Ml Oral.Susp) 30 ml PO Q6H PRN PRN Reason: Heartburn/Nausea Benztropine Mesylate (Benztropine Mesylate 0.5 Mg Tablet) 0.5 mg PO BID [facility] Last Admin: 04/03/24 09:02 Dose: 0.5 mg Diphenhydramine HCl (Diphenhydramine Hcl 25 Mg Capsule) 25 mg PO Q4H PRN PRN Reason: Itching Last Admin: 03/28/24 20:31 Dose: 25 mg Haloperidol (Haloperidol 5 Mg Tablet) 5 mg PO DAILY [facility] Last Admin: 04/03/24 09:02 Dose: 5 mg Haloperidol (Haloperidol 5 Mg Tablet) 10 mg PO BEDTIME [facility] Last Admin: 04/02/24 20:45 Dose: 10 mg Magnesium Hydroxide (Milk Of Magnesia 30 Ml Oral.Susp) 30 ml PO DAILY PRN PRN Reason: Constipation Multi-Ingred Cream/Lotion/Oil/Oint (Mineral Oil/Petrolatum,White 106 Gm Tube) 1 appl TOPICAL Q2H PRN; Protocol PRN Reason: affected areas of dry skin Nicotine Polacrilex (Nicotine Polacrilex 2 Mg Gum) 4 mg BUCCAL Q2H PRN PRN Reason: Nicotine Cravings Olanzapine (Olanzapine 5 Mg Tablet) 5 mg PO Q4H PRN PRN Reason: agitation Last Admin: 03/24/24 20:09 Dose: 5 mg Trazodone HCl (Trazodone Hcl 100 Mg Tablet) 100 mg PO BEDTIME [facility] Last Admin: 04/02/24 20:45 Dose: 100 mg Trazodone HCl (Trazodone Hcl 50 Mg Tablet) 50 mg PO BEDTIME PRN PRN Reason: Sleep Last Admin: 04/01/24 21:44 Dose: 50 mg Allergies Allergies Allergy/AdvReac Type Severity Reaction Status Date / Time No Known Allergies Allergy Verified 02/25/24 21:07 Assessment & Plan Assessment & Plan (1) Schizophrenia: Status: Acute Code(s): F20.9 - Schizophrenia, unspecified Plan Elderly Armenian female with a long history of psychosis and chronic homelessness referred from [facility] for exacerbation of psychosis and lice infestation due to self neglect. Plan 1. Continue with Haldol 5 mg p.o. q.a.m. and 10 mg p.o. q.h.s.. 2. Permethrin 3rd course of treatment order on March 30. 3. We had on March 30 a family meeting with [facility] for discharge planning. 4. Continue 15 minute checks. Reason for continued inpatient stay Substantial Risk for: inability to function, rapid decompensation and med/psych decompensation Time Spent With Patient Time: Total time managing care of this patient today _20___ minutes.
[2024-04-03 19:53] VITALS: BP 146/78; PULSE 83; TEMP 36.2; O2SAT 93
[2024-04-03] MEDS: HaloperidoL 5 MG TABLET 10 MG PO (21:06)
[2024-04-03] MEDS: traZODone HCL 100 MG TABLET PO (21:06)
[2024-04-04] MEDS: HaloperidoL 5 MG TABLET PO (09:22)
[2024-04-04] MEDS: Benztropine Mesylate 0.5 MG TABLET PO ×2 (09:22→20:14)
--- NOTE | 2024-04-04 12:25 | HO.PSYCHPN ---
Subjective Subjective Date of Service: 04/04/24 Reason For Visit: Unspecified Psychotic Disorder Subjective Notes: Conditional Voluntary Interim History: The nursing staff reported the patient had been compliant with treatment, no changes in his mental status. On interview the patient remains attention seeking no changes. Mental Status Exam Mental Status Exam Patient Appearance: Appropriate Patient Orientation: Person and Situation Level of Consciousness: Awake Patient Behavior: Guarded and Passive Mood Description: Withdrawn Affect Description: Constricted Patient Cognition Impaired: Yes Ability to Follow Directions: Good Speech Pattern: Clear Hallucinations: None Delusions: Paranoid Ideation and Ideas of Reference Thought Process: Distracted and Slowed Thinking Thought Content: positive for [place] and positive for Poverty of Content Judgement: Fair Diagnostics Vital Signs (24Hr): Vital Signs - 24 hr 04/03/24 19:53 Temperature 97.2 F Pulse Rate 83 Blood Pressure 146/78 H Pulse Oximetry 93 Oxygen Delivery Method Room Air BMI result Body Mass Index 32.6 Labs 02/27/24 08:24 Medications Medications Current Medications Acetaminophen (Acetaminophen 325 Mg Tablet) 650 mg PO Q6H PRN PRN Reason: Headache/Pain Mild Scale (1-3) Last Admin: 03/28/24 06:42 Dose: 650 mg Al Hydroxide/Mg Hydroxide (Magnesium Hydrox/Alum Hydrox 30 Ml Oral.Susp) 30 ml PO Q6H PRN PRN Reason: Heartburn/Nausea Benztropine Mesylate (Benztropine Mesylate 0.5 Mg Tablet) 0.5 mg PO BID [facility] Last Admin: 04/04/24 09:22 Dose: 0.5 mg Diphenhydramine HCl (Diphenhydramine Hcl 25 Mg Capsule) 25 mg PO Q4H PRN PRN Reason: Itching Last Admin: 03/28/24 20:31 Dose: 25 mg Haloperidol (Haloperidol 5 Mg Tablet) 5 mg PO DAILY [facility] Last Admin: 04/04/24 09:22 Dose: 5 mg Haloperidol (Haloperidol 5 Mg Tablet) 10 mg PO BEDTIME [facility] Last Admin: 04/03/24 21:06 Dose: 10 mg Magnesium Hydroxide (Milk Of Magnesia 30 Ml Oral.Susp) 30 ml PO DAILY PRN PRN Reason: Constipation Multi-Ingred Cream/Lotion/Oil/Oint (Mineral Oil/Petrolatum,White 106 Gm Tube) 1 appl TOPICAL Q2H PRN; Protocol PRN Reason: affected areas of dry skin Nicotine Polacrilex (Nicotine Polacrilex 2 Mg Gum) 4 mg BUCCAL Q2H PRN PRN Reason: Nicotine Cravings Olanzapine (Olanzapine 5 Mg Tablet) 5 mg PO Q4H PRN PRN Reason: agitation Last Admin: 03/24/24 20:09 Dose: 5 mg Permethrin (Permethrin 1 % Lotion 59 Ml Btl) 1 appl TOPICAL ONCE ONE Stop: 04/04/24 12:25 Trazodone HCl (Trazodone Hcl 100 Mg Tablet) 100 mg PO BEDTIME [facility] Last Admin: 04/03/24 21:06 Dose: 100 mg Trazodone HCl (Trazodone Hcl 50 Mg Tablet) 50 mg PO BEDTIME PRN PRN Reason: Sleep Last Admin: 04/01/24 21:44 Dose: 50 mg Allergies Allergies Allergy/AdvReac Type Severity Reaction Status Date / Time No Known Allergies Allergy Verified 02/25/24 21:07 Assessment & Plan Assessment & Plan (1) Schizophrenia: Status: Acute Code(s): F20.9 - Schizophrenia, unspecified Plan Elderly Mauritian female with a long history of psychosis and chronic homelessness referred from [facility] for exacerbation of psychosis and lice infestation due to self neglect. Plan 1. Continue with Haldol 5 mg p.o. q.a.m. and 10 mg p.o. q.h.s.. 2. Permethrin 3rd course of treatment order on March 30. 3. We had on March 30 a family meeting with [facility] for discharge planning. 4. Continue 15 minute checks. Reason for continued inpatient stay Substantial Risk for: inability to function, rapid decompensation and med/psych decompensation Time Spent With Patient Time: Total time managing care of this patient today __20__ minutes.
--- NOTE | 2024-04-04 14:19 | PC.NURSE ---
Permethrin Nix creme prescribed by the provider this afternoon strictly for the use of the comb that comes with the product. Patient's hair has been combed through and two lice (one live and one ) found in her hair before pt became restless and uncooperative with sitting still for this nurse to be able to continue. Provider Dr. Ochoa notified (last treatment was done 03/30/24).
[2024-04-04] MEDS: HaloperidoL 5 MG TABLET 10 MG PO (20:13)
[2024-04-04] MEDS: traZODone HCL 100 MG TABLET PO (20:13)
[2024-04-05] MEDS: Acetaminophen 325 MG TABLET 650 MG PO (05:31)
[2024-04-05] MEDS: HaloperidoL 5 MG TABLET PO (08:12)
[2024-04-05] MEDS: Benztropine Mesylate 0.5 MG TABLET PO ×2 (08:13→21:32)
--- NOTE | 2024-04-05 10:17 | P.EN_ITS ---
Event Note Date of Service: 04/05/24 Event Note: Pt is a 79-year-old female admitted to [facility] with hospitalist consult for medical clearance after longstanding extensive infestation. [place] [facility] [place] with permethrin lotion from feet that is stayed on around 72 hours after pt refused a shower after initial application. Unclear if pt received 2nd dosing [place] [facility] After transfer here was found to have continuing acute lice infestation and was treated with ivermectin 9 mg p.o. x2 doses administered 1 week apart in February. Nursing reports another 2 adult lice or found outpatient a few days ago. Would suggest reaching out to Infectious Disease for additional treatment options, as pt has already undergone first-line treatment twice. Time Spent With Patient Time: Total time managing care of this patient today ____ minutes.
--- NOTE | 2024-04-05 13:04 | P.PNPSI_ITS ---
Subjective Subjective Date of Service: 04/05/24 Reason For Visit: Unspecified Psychotic Disorder Subjective Notes: Conditional Voluntary Interim History: The nursing staff reported the patient had been attention seeking slept 7 hours. They found to insects lies. On interview the patient does not want to take a shower he does not have insight into her condition. Mental Status Exam Mental Status Exam Patient Appearance: Appropriate and Unkempt Patient Orientation: Person Level of Consciousness: Awake and Appropriate Patient Behavior: Guarded and Passive Mood Description: Withdrawn Affect Description: Constricted Patient Cognition Impaired: Yes Ability to Follow Directions: Fair Speech Pattern: Clear Hallucinations: None Delusions: Paranoid Ideation and Ideas of Reference Thought Process: Distracted and Slowed Thinking Thought Content: positive for [place] and positive for Poverty of Content Judgement: Poor Diagnostics Vital Signs (24Hr): BMI result Body Mass Index 32.6 Labs 02/27/24 08:24 Medications Medications Current Medications Acetaminophen (Acetaminophen 325 Mg Tablet) 650 mg PO Q6H PRN PRN Reason: Headache/Pain Mild Scale (1-3) Last Admin: 04/05/24 05:31 Dose: 650 mg Al Hydroxide/Mg Hydroxide (Magnesium Hydrox/Alum Hydrox 30 Ml Oral.Susp) 30 ml PO Q6H PRN PRN Reason: Heartburn/Nausea Benztropine Mesylate (Benztropine Mesylate 0.5 Mg Tablet) 0.5 mg PO BID [facility] Last Admin: 04/05/24 08:13 Dose: 0.5 mg Diphenhydramine HCl (Diphenhydramine Hcl 25 Mg Capsule) 25 mg PO Q4H PRN PRN Reason: Itching Last Admin: 03/28/24 20:31 Dose: 25 mg Haloperidol (Haloperidol 5 Mg Tablet) 5 mg PO DAILY [facility] Last Admin: 04/05/24 08:12 Dose: 5 mg Haloperidol (Haloperidol 5 Mg Tablet) 10 mg PO BEDTIME [facility] Last Admin: 04/04/24 20:13 Dose: 10 mg Magnesium Hydroxide (Milk Of Magnesia 30 Ml Oral.Susp) 30 ml PO DAILY PRN PRN Reason: Constipation Multi-Ingred Cream/Lotion/Oil/Oint (Mineral Oil/Petrolatum,White 106 Gm Tube) 1 appl TOPICAL Q2H PRN; Protocol PRN Reason: affected areas of dry skin Nicotine Polacrilex (Nicotine Polacrilex 2 Mg Gum) 4 mg BUCCAL Q2H PRN PRN Reason: Nicotine Cravings Olanzapine (Olanzapine 5 Mg Tablet) 5 mg PO Q4H PRN PRN Reason: agitation Last Admin: 03/24/24 20:09 Dose: 5 mg Trazodone HCl (Trazodone Hcl 100 Mg Tablet) 100 mg PO BEDTIME [facility] Last Admin: 04/04/24 20:13 Dose: 100 mg Trazodone HCl (Trazodone Hcl 50 Mg Tablet) 50 mg PO BEDTIME PRN PRN Reason: Sleep Last Admin: 04/01/24 21:44 Dose: 50 mg Allergies Allergies Allergy/AdvReac Type Severity Reaction Status Date / Time No Known Allergies Allergy Verified 02/25/24 21:07 Assessment & Plan Assessment & Plan (1) Schizophrenia: Status: Acute Code(s): F20.9 - Schizophrenia, unspecified Plan Elderly Maltese female with a long history of psychosis and chronic homelessness referred from [facility] for exacerbation of psychosis and lice infestation due to self neglect. Plan 1. Continue with Haldol 5 mg p.o. q.a.m. and 10 mg p.o. q.h.s.. 2. Permethrin 3rd course of treatment order on March 30. 3. We had on March 30 a family meeting with [facility] for discharge planning. 4. Continue 15 minute checks. Reason for continued inpatient stay Substantial Risk for: inability to function, rapid decompensation and med/psych decompensation Time Spent With Patient Time: Total time managing care of this patient today ___20_ minutes.
[2024-04-05] MEDS: Permethrin 1 % Lotion 59 ML BTL 1 APPL TOPICAL (15:35)
[2024-04-05 20:00] VITALS: BP 143/66; PULSE 84; RESP 16; TEMP 35.9; O2SAT 98
[2024-04-05] MEDS: traZODone HCL 100 MG TABLET PO (21:31)
[2024-04-05] MEDS: diphenhydrAMINE HCL 25 MG CAPSULE PO (21:31)
[2024-04-05] MEDS: HaloperidoL 5 MG TABLET 10 MG PO (21:31)
[2024-04-06 08:00] VITALS: BP 114/66; PULSE 89; RESP 18; TEMP 36.5; O2SAT 97
[2024-04-06] MEDS: HaloperidoL 5 MG TABLET PO (08:19)
[2024-04-06] MEDS: Benztropine Mesylate 0.5 MG TABLET PO ×2 (08:19→20:30)
[2024-04-06] MEDS: Acetaminophen 325 MG TABLET 650 MG PO (11:09)
--- NOTE | 2024-04-06 14:15 | HO.PSYCHPN ---
Subjective Subjective Date of Service: 04/06/24 Reason For Visit: Unspecified Psychotic Disorder Subjective Notes: Conditional Voluntary Interim History: The nursing staff reported the patient had been able to cooperate and we have another permethrin and shower. The social media project manager reported the OT saw her and they are going to assess her for her level of care. On interview the patient denies new symptoms. Mental Status Exam Mental Status Exam Patient Appearance: Appropriate Patient Orientation: Person and Situation Level of Consciousness: Awake and Appropriate Patient Behavior: Guarded and Passive Mood Description: Withdrawn Affect Description: Constricted Patient Cognition Impaired: Yes Ability to Follow Directions: Good Speech Pattern: Clear Hallucinations: None Delusions: Paranoid Ideation and Ideas of Reference Thought Process: Distracted and Slowed Thinking Thought Content: positive for [place] and positive for Poverty of Content Judgement: Poor Diagnostics Vital Signs (24Hr): Vital Signs - 24 hr 04/05/24 20:00 04/06/24 08:00 Temperature 96.7 F L 97.7 F Pulse Rate 84 89 Respiratory Rate 16 18 Blood Pressure 143/66 H 114/66 Pulse Oximetry 98 97 Oxygen Delivery Method Room Air Room Air BMI result Body Mass Index 32.6 Labs 02/27/24 08:24 Medications Medications Current Medications Acetaminophen (Acetaminophen 325 Mg Tablet) 650 mg PO Q6H PRN PRN Reason: Headache/Pain Mild Scale (1-3) Last Admin: 04/06/24 11:09 Dose: 650 mg Al Hydroxide/Mg Hydroxide (Magnesium Hydrox/Alum Hydrox 30 Ml Oral.Susp) 30 ml PO Q6H PRN PRN Reason: Heartburn/Nausea Benztropine Mesylate (Benztropine Mesylate 0.5 Mg Tablet) 0.5 mg PO BID [facility] Last Admin: 04/06/24 08:19 Dose: 0.5 mg Diphenhydramine HCl (Diphenhydramine Hcl 25 Mg Capsule) 25 mg PO Q4H PRN PRN Reason: Itching Last Admin: 04/05/24 21:31 Dose: 25 mg Haloperidol (Haloperidol 5 Mg Tablet) 5 mg PO DAILY [facility] Last Admin: 04/06/24 08:19 Dose: 5 mg Haloperidol (Haloperidol 5 Mg Tablet) 10 mg PO BEDTIME [facility] Last Admin: 04/05/24 21:31 Dose: 10 mg Magnesium Hydroxide (Milk Of Magnesia 30 Ml Oral.Susp) 30 ml PO DAILY PRN PRN Reason: Constipation Multi-Ingred Cream/Lotion/Oil/Oint (Mineral Oil/Petrolatum,White 106 Gm Tube) 1 appl TOPICAL Q2H PRN; Protocol PRN Reason: affected areas of dry skin Nicotine Polacrilex (Nicotine Polacrilex 2 Mg Gum) 4 mg BUCCAL Q2H PRN PRN Reason: Nicotine Cravings Olanzapine (Olanzapine 5 Mg Tablet) 5 mg PO Q4H PRN PRN Reason: agitation Last Admin: 03/24/24 20:09 Dose: 5 mg Trazodone HCl (Trazodone Hcl 100 Mg Tablet) 100 mg PO BEDTIME [facility] Last Admin: 04/05/24 21:31 Dose: 100 mg Trazodone HCl (Trazodone Hcl 50 Mg Tablet) 50 mg PO BEDTIME PRN PRN Reason: Sleep Last Admin: 04/01/24 21:44 Dose: 50 mg Allergies Allergies Allergy/AdvReac Type Severity Reaction Status Date / Time No Known Allergies Allergy Verified 02/25/24 21:07 Assessment & Plan Assessment & Plan (1) Schizophrenia: Status: Acute Code(s): F20.9 - Schizophrenia, unspecified Plan Elderly Bahamian female with a long history of psychosis and chronic homelessness referred from [facility] for exacerbation of psychosis and lice infestation due to self neglect. Plan 1. Continue with Haldol 5 mg p.o. q.a.m. and 10 mg p.o. q.h.s.. 2. Permethrin 3rd course of treatment order on March 30. 3. We had on March 30 a family meeting with [facility] for discharge planning. 4. Continue 15 minute checks. Reason for continued inpatient stay Substantial Risk for: inability to function, rapid decompensation and med/psych decompensation Time Spent With Patient Time: Total time managing care of this patient today __20__ minutes.
[2024-04-06 20:00] VITALS: BP 128/74; PULSE 77; RESP 18; TEMP 36.4; O2SAT 98
[2024-04-06] MEDS: traZODone HCL 100 MG TABLET PO (20:30)
[2024-04-06] MEDS: diphenhydrAMINE HCL 25 MG CAPSULE PO (20:30)
[2024-04-06] MEDS: HaloperidoL 5 MG TABLET 10 MG PO (20:30)
[2024-04-07 08:00] VITALS: RESP 18
[2024-04-07] MEDS: HaloperidoL 5 MG TABLET PO (08:36)
[2024-04-07] MEDS: Benztropine Mesylate 0.5 MG TABLET PO ×2 (08:36→20:58)
--- NOTE | 2024-04-07 14:41 | PC.NURSE ---
As far as we can tell, there no lice.
--- NOTE | 2024-04-07 14:45 | PC.NURSE ---
Marium head was assessed today for lice, upon assessment it does not appear that she has any lice or nits on her hair. She appears to be clear from lice and nits.
--- NOTE | 2024-04-07 15:13 | P.PNPSI_ITS ---
Subjective Subjective Date of Service: 04/07/24 Reason For Visit: Unspecified Psychotic Disorder Subjective Notes: Conditional Voluntary Interim History: The nursing staff reported the patient had been attention seeking, slept 5 hours. On interview the patient denies new symptoms, waiting for placement. Mental Status Exam Mental Status Exam Patient Appearance: Appropriate Patient Orientation: Person and Situation Level of Consciousness: Awake and Appropriate Patient Behavior: Guarded and Passive Mood Description: Withdrawn Affect Description: Constricted Patient Cognition Impaired: Yes Ability to Follow Directions: Good Speech Pattern: Clear Hallucinations: None Delusions: Ideas of Reference Thought Process: Distracted and Slowed Thinking Thought Content: positive for [place] and positive for Poverty of Content Judgement: Fair Diagnostics Vital Signs (24Hr): Vital Signs - 24 hr 04/06/24 20:00 04/07/24 08:00 Temperature 97.6 F Pulse Rate 77 Respiratory Rate 18 18 Blood Pressure 128/74 Pulse Oximetry 98 Oxygen Delivery Method Room Air BMI result Body Mass Index 32.6 Labs 02/27/24 08:24 Medications Medications Current Medications Acetaminophen (Acetaminophen 325 Mg Tablet) 650 mg PO Q6H PRN PRN Reason: Headache/Pain Mild Scale (1-3) Last Admin: 04/06/24 11:09 Dose: 650 mg Al Hydroxide/Mg Hydroxide (Magnesium Hydrox/Alum Hydrox 30 Ml Oral.Susp) 30 ml PO Q6H PRN PRN Reason: Heartburn/Nausea Benztropine Mesylate (Benztropine Mesylate 0.5 Mg Tablet) 0.5 mg PO BID [facility] Last Admin: 04/07/24 08:36 Dose: 0.5 mg Diphenhydramine HCl (Diphenhydramine Hcl 25 Mg Capsule) 25 mg PO Q4H PRN PRN Reason: Itching Last Admin: 04/06/24 20:30 Dose: 25 mg Haloperidol (Haloperidol 5 Mg Tablet) 5 mg PO DAILY [facility] Last Admin: 04/07/24 08:36 Dose: 5 mg Haloperidol (Haloperidol 5 Mg Tablet) 10 mg PO BEDTIME [facility] Last Admin: 04/06/24 20:30 Dose: 10 mg Magnesium Hydroxide (Milk Of Magnesia 30 Ml Oral.Susp) 30 ml PO DAILY PRN PRN Reason: Constipation Multi-Ingred Cream/Lotion/Oil/Oint (Mineral Oil/Petrolatum,White 106 Gm Tube) 1 appl TOPICAL Q2H PRN; Protocol PRN Reason: affected areas of dry skin Nicotine Polacrilex (Nicotine Polacrilex 2 Mg Gum) 4 mg BUCCAL Q2H PRN PRN Reason: Nicotine Cravings Olanzapine (Olanzapine 5 Mg Tablet) 5 mg PO Q4H PRN PRN Reason: agitation Last Admin: 03/24/24 20:09 Dose: 5 mg Trazodone HCl (Trazodone Hcl 100 Mg Tablet) 100 mg PO BEDTIME [facility] Last Admin: 04/06/24 20:30 Dose: 100 mg Trazodone HCl (Trazodone Hcl 50 Mg Tablet) 50 mg PO BEDTIME PRN PRN Reason: Sleep Last Admin: 04/01/24 21:44 Dose: 50 mg Allergies Allergies Allergy/AdvReac Type Severity Reaction Status Date / Time No Known Allergies Allergy Verified 02/25/24 21:07 Assessment & Plan Assessment & Plan (1) Schizophrenia: Status: Acute Code(s): F20.9 - Schizophrenia, unspecified Plan Elderly Citizen Of [place] female with a long history of psychosis and chronic homelessness referred from [facility] for exacerbation of psychosis and lice infestation due to self neglect. Plan 1. Continue with Haldol 5 mg p.o. q.a.m. and 10 mg p.o. q.h.s.. 2. Permethrin 3rd course of treatment order on March 30. 3. We had on March 30 [address] meeting with [facility] for discharge planning. 4. Continue 15 minute checks. Reason for continued inpatient stay Substantial Risk for: inability to function, rapid decompensation and med/psych decompensation Time Spent With Patient Time: Total time managing care of this patient today __20__ minutes.
[2024-04-07] MEDS: HaloperidoL 5 MG TABLET 10 MG PO (20:58)
[2024-04-07] MEDS: traZODone HCL 100 MG TABLET PO (20:58)
[2024-04-07] MEDS: diphenhydrAMINE HCL 25 MG CAPSULE PO (20:58)
[2024-04-08] MEDS: HaloperidoL 5 MG TABLET PO (11:53)
[2024-04-08] MEDS: Benztropine Mesylate 0.5 MG TABLET PO ×2 (11:53→20:42)
--- NOTE | 2024-04-08 13:36 | P.PNPSI_ITS ---
Subjective Subjective Date of Service: 04/08/24 Reason For Visit: Unspecified Psychotic Disorder Subjective Notes: Conditional Voluntary Interim History: Pt in room. noted waxy flexibility on exam. Less guarded and irritable, talking more when asked by staff. Given ativan 2mg po challenge but it appears that she mostly slept. No behavioral concerns. Review of Systems Review of Systems unremarkable Yes all other systems are reviewed and are negative and Unobtainable due to mental status Mental Status Exam Mental Status Exam Patient Appearance: Appropriate Patient Orientation: Person and Situation Level of Consciousness: Awake and Appropriate Patient Behavior: Guarded and Passive Mood Description: Withdrawn Affect Description: Constricted Patient Cognition Impaired: Yes Ability to Follow Directions: Good Speech Pattern: Clear Memory Description: Remote Impaired and Recent Impaired Diagnostics Vital Signs (24Hr): BMI result Body Mass Index 32.6 Labs 02/27/24 08:24 Medications Medications Current Medications Acetaminophen (Acetaminophen 325 Mg Tablet) 650 mg PO Q6H PRN PRN Reason: Headache/Pain Mild Scale (1-3) Last Admin: 04/06/24 11:09 Dose: 650 mg Al Hydroxide/Mg Hydroxide (Magnesium Hydrox/Alum Hydrox 30 Ml Oral.Susp) 30 ml PO Q6H PRN PRN Reason: Heartburn/Nausea Benztropine Mesylate (Benztropine Mesylate 0.5 Mg Tablet) 0.5 mg PO BID [facility] Last Admin: 04/08/24 11:53 Dose: 0.5 mg Diphenhydramine HCl (Diphenhydramine Hcl 25 Mg Capsule) 25 mg PO Q4H PRN PRN Reason: Itching Last Admin: 04/07/24 20:58 Dose: 25 mg Haloperidol (Haloperidol 5 Mg Tablet) 5 mg PO DAILY [facility] Last Admin: 04/08/24 11:53 Dose: 5 mg Haloperidol (Haloperidol 5 Mg Tablet) 10 mg PO BEDTIME [facility] Last Admin: 04/07/24 20:58 Dose: 10 mg Magnesium Hydroxide (Milk Of Magnesia 30 Ml Oral.Susp) 30 ml PO DAILY PRN PRN Reason: Constipation Multi-Ingred Cream/Lotion/Oil/Oint (Mineral Oil/Petrolatum,White 106 Gm Tube) 1 appl TOPICAL Q2H PRN; Protocol PRN Reason: affected areas of dry skin Nicotine Polacrilex (Nicotine Polacrilex 2 Mg Gum) 4 mg BUCCAL Q2H PRN PRN Reason: Nicotine Cravings Olanzapine (Olanzapine 5 Mg Tablet) 5 mg PO Q4H PRN PRN Reason: agitation Last Admin: 03/24/24 20:09 Dose: 5 mg Trazodone HCl (Trazodone Hcl 100 Mg Tablet) 100 mg PO BEDTIME [facility] Last Admin: 04/07/24 20:58 Dose: 100 mg Trazodone HCl (Trazodone Hcl 50 Mg Tablet) 50 mg PO BEDTIME PRN PRN Reason: Sleep Last Admin: 04/01/24 21:44 Dose: 50 mg Allergies Allergies Allergy/AdvReac Type Severity Reaction Status Date / Time No Known Allergies Allergy Verified 02/25/24 21:07 Assessment & Plan Assessment & Plan (1) Schizophrenia: Status: Acute Code(s): F20.9 - Schizophrenia, unspecified Plan Elderly Micronesian female with a long history of psychosis and chronic homelessness referred from [facility] for exacerbation of psychosis and lice infestation due to self neglect. Plan 04/08 one time ativan 2mg r/o catatonia- waxy flexibility noted on exam, but no positive effect with one time dose of ativan. Reason for continued inpatient stay Substantial Risk for: inability to function Time Spent With Patient Time: Total time managing care of this patient today ____ minutes.
[2024-04-08] MEDS: LORazepam 1 MG TABLET 2 MG PO (15:01)
[2024-04-08] MEDS: HaloperidoL 5 MG TABLET 10 MG PO (20:41)
[2024-04-08] MEDS: traZODone HCL 100 MG TABLET PO (20:41)
--- NOTE | 2024-04-09 11:53 | HO.PSYCHPN ---
Subjective Subjective Date of Service: 04/09/24 Reason For Visit: Unspecified Psychotic Disorder Subjective Notes: Conditional Voluntary Interim History: Pt in bed, reports not able to move, when checking her arms not much ridigity noted. but she seems to keep a somewhat position. She is less guarded and accepts and asks for help moving. Will increase cogentin 1mg po BID. Pt continues to report that she is not able to move. no cogwheel on exam, very mild rigidity. No independent with ADLs as she was when she came to the hospital. may consider decrease in haldol, or different antipsychotic. will also complete labs. Medication Compliance: Yes Review of Systems Review of Systems unremarkable Yes all other systems are reviewed and are negative and Unobtainable due to mental status Mental Status Exam Mental Status Exam Narrative: Calm, in bed, asleep Patient Appearance: Appropriate Patient Orientation: Person and Situation Level of Consciousness: Awake and Appropriate Patient Behavior: Guarded and Passive Mood Description: Withdrawn Affect Description: Constricted Patient Cognition Impaired: Yes Ability to Follow Directions: Good Speech Pattern: Clear Memory Description: Remote Impaired and Recent Impaired Diagnostics Vital Signs (24Hr): BMI result Body Mass Index 32.6 Labs 04/09/24 15:11 04/09/24 15:11 Medications Medications Current Medications Acetaminophen (Acetaminophen 325 Mg Tablet) 650 mg PO Q6H PRN PRN Reason: Headache/Pain Mild Scale (1-3) Last Admin: 04/06/24 11:09 Dose: 650 mg Al Hydroxide/Mg Hydroxide (Magnesium Hydrox/Alum Hydrox 30 Ml Oral.Susp) 30 ml PO Q6H PRN PRN Reason: Heartburn/Nausea Benztropine Mesylate (Benztropine Mesylate 0.5 Mg Tablet) 0.5 mg PO BID [facility] Last Admin: 04/09/24 10:29 Dose: Not Given Diphenhydramine HCl (Diphenhydramine Hcl 25 Mg Capsule) 25 mg PO Q4H PRN PRN Reason: Itching Last Admin: 04/07/24 20:58 Dose: 25 mg Haloperidol (Haloperidol 5 Mg Tablet) 5 mg PO DAILY [facility] Last Admin: 04/09/24 10:29 Dose: Not Given Haloperidol (Haloperidol 5 Mg Tablet) 10 mg PO BEDTIME [facility] Last Admin: 04/08/24 20:41 Dose: 10 mg Magnesium Hydroxide (Milk Of Magnesia 30 Ml Oral.Susp) 30 ml PO DAILY PRN PRN Reason: Constipation Multi-Ingred Cream/Lotion/Oil/Oint (Mineral Oil/Petrolatum,White 106 Gm Tube) 1 appl TOPICAL Q2H PRN; Protocol PRN Reason: affected areas of dry skin Nicotine Polacrilex (Nicotine Polacrilex 2 Mg Gum) 4 mg BUCCAL Q2H PRN PRN Reason: Nicotine Cravings Olanzapine (Olanzapine 5 Mg Tablet) 5 mg PO Q4H PRN PRN Reason: agitation Last Admin: 03/24/24 20:09 Dose: 5 mg Trazodone HCl (Trazodone Hcl 100 Mg Tablet) 100 mg PO BEDTIME [facility] Last Admin: 04/08/24 20:41 Dose: 100 mg Trazodone HCl (Trazodone Hcl 50 Mg Tablet) 50 mg PO BEDTIME PRN PRN Reason: Sleep Last Admin: 04/01/24 21:44 Dose: 50 mg Allergies Allergies Allergy/AdvReac Type Severity Reaction Status Date / Time No Known Allergies Allergy Verified 02/25/24 21:07 Assessment & Plan Assessment & Plan (1) Schizophrenia: Status: Acute Code(s): F20.9 - Schizophrenia, unspecified Plan Elderly Ecuad[place] female with a long history of psychosis and chronic homelessness referred from [facility] for exacerbation of psychosis and lice infestation due to self neglect. Plan 04/08 one time ativan 2mg r/o catatonia- waxy flexibility noted on exam, but no positive effect with one time dose of ativan. 04/09 increase cogentin 1mg po BID. may consider reduction in haldol or another antidepressant. ordered labs. Reason for continued inpatient stay Substantial Risk for: inability to function Time Spent With Patient Time: Total time managing care of this patient today ____ minutes.
[2024-04-09] MEDS: Benztropine Mesylate 1 MG TABLET 2 MG PO (14:07)
[2024-04-09 15:32] LABS: MANUAL DIFF FLAG NO
[2024-04-09 15:37] LABS: Basophils Percent Auto 0.5 % (0-2); Eosinophils Absolute Auto 0.1 X10*3/uL (0.0-0.4); Eosinophils Percent Auto 2.3 % (0-4); Hematocrit 37.7 % (37.0-47.0); Hemoglobin 12.1 g/dl (12.0-16.0); Imm Gran Abs Auto 0.02 X10*3/uL (0.00-0.03); Imm Gran Pct Auto 0.4 % (0.0-0.4); Lymphocytes Absolute Auto 0.9 X10*3/uL (1.2-4.9); Lymphocytes Percent Auto 15.6 % (20-40); Mean Corpuscular HGB Conc 32.1 g/dl (31.0-35.0); Mean Corpuscular Hemoglobin 24.9 pg (27.0-33.0); Mean Corpuscular Volume 77.7 fL (80.0-98.0); Monocytes Absolute Auto 0.7 X10*3/uL (0.1-1.2); Neutrophils Absolute Auto 3.9 x10*3/uL (2.0-8.3); Neutrophils Percent Auto 69.2 % (45-73); Platelet Count 296 X10*3/uL (160-400); Red Blood Count 4.85 X10*6/uL (4.20-5.50); Red Cell Distribution Width 15.2 % (11.0-16.0); White Blood Count 5.6 X10*3/uL (4.8-10.8)
[2024-04-09 16:10] LABS: Alanine Aminotransferase 26 U/L (0-31); Albumin Level 3.2 g/dL (3.5-5.0); Alkaline Phosphatase 64 U/L (39-117); Anion Gap 11 (12-20); Aspartate Amino Transferase 63 U/L (5-31); Bilirubin Total 0.5 mg/dL (0.0-1.0); Blood Urea Nitrogen 22 mg/dL (9-16); Calcium 8.6 mg/dL (8.4-10.2); Carbon Dioxide 24 mmol/L (22-29); Chloride 109 mmol/L (96-108); Creatinine Clr Calc Pharmacy 65.5; Estimated Glomerular Filt Rate > 60; Glucose Random 86 mg/dL (60-115); Potassium 3.7 mmol/L (3.3-5.1); Sodium 140 mmol/L (135-145); Total Protein 6.1 g/dL (6.5-8.0)
[2024-04-09] MEDS: HaloperidoL 5 MG TABLET 10 MG PO (20:14)
[2024-04-09] MEDS: traZODone HCL 100 MG TABLET PO (20:14)
[2024-04-09] MEDS: Benztropine Mesylate 1 MG TABLET PO (20:15)
[2024-04-10 09:15] VITALS: BP 137/68; PULSE 68; RESP 16; TEMP 36.1; O2SAT 95
[2024-04-10] MEDS: HaloperidoL 5 MG TABLET PO (09:20)
[2024-04-10] MEDS: Benztropine Mesylate 1 MG TABLET PO ×2 (09:20→19:54)
--- NOTE | 2024-04-10 09:34 | PC.NURSE ---
The patients head was inspected for lice and nits, none were found today. The patient was very cooperative with procedure. Dr Garcia updated.
--- NOTE | 2024-04-10 11:38 | P.PNPSI_ITS ---
Subjective Subjective Date of Service: 04/10/24 Reason For Visit: Unspecified Psychotic Disorder Subjective Notes: Conditional Voluntary Interim History: The nursing staff reported that the patient had been compliant with treatment, she had been on contact isolation for lice. Today she was assessed by the nursing staff and there is no evidence of lice infestation. We are going to discontinue contact precautions. On interview the patient denies new symptoms, still very attention seeking, waiting for placement. Today I had a phone call with the reviewer of the insurance and they have denied her. Mental Status Exam Mental Status Exam Patient Appearance: Appropriate Patient Orientation: Person Level of Consciousness: Awake Patient Behavior: Guarded and Passive Mood Description: Constricted Affect Description: Calm Patient Cognition Impaired: Yes Ability to Follow Directions: Good Speech Pattern: Clear Hallucinations: None Delusions: Ideas of Reference Thought Process: Distracted and Slowed Thinking Thought Content: positive for [place] and positive for Poverty of Content Judgement: Poor Diagnostics Vital Signs (24Hr): Vital Signs - 24 hr 04/10/24 09:15 Temperature 97 F Pulse Rate 68 Respiratory Rate 16 Blood Pressure 137/68 Pulse Oximetry 95 Oxygen Delivery Method Room Air BMI result Body Mass Index 32.6 Labs 04/09/24 15:11 04/09/24 15:11 Labs: Laboratory Results - last 48 hr 04/09/24 15:11 WBC 5.6 RBC 4.85 Hgb 12.1 Hct 37.7 MCV 77.7 L MCH 24.9 L MCHC 32.1 RDW 15.2 Plt Count 296 MPV 9.0 L Immature Gran % (Auto) 0.4 Neut % (Auto) 69.2 Lymph % (Auto) 15.6 L [place] % (Auto) 12.0 H Eos % (Auto) 2.3 Baso % (Auto) 0.5 Lymph # (Auto) 0.9 L [place] # (Auto) 0.7 Eos # (Auto) 0.1 Baso # (Auto) 0.0 Abs Immat Gran (auto) 0.02 Absolute Neuts (auto) 3.9 Absolute Nucleated RBC 0.000 Nucleated RBC % (auto) 0.0 Sodium 140 Potassium 3.7 Chloride 109 H Carbon Dioxide 24 Anion Gap 11 L BUN 22 H Creatinine 0.59 Estim Creat Clear Calc 65.5 Estimated GFR > 60 Random Glucose 86 Calcium 8.6 Total Bilirubin 0.5 AST 63 H ALT 26 Alkaline Phosphatase 64 Total Creatine Kinase 792 H Total Protein 6.1 L Albumin 3.2 L Medications Medications Current Medications Acetaminophen (Acetaminophen 325 Mg Tablet) 650 mg PO Q6H PRN PRN Reason: Headache/Pain Mild Scale (1-3) Last Admin: 04/06/24 11:09 Dose: 650 mg Al Hydroxide/Mg Hydroxide (Magnesium Hydrox/Alum Hydrox 30 Ml Oral.Susp) 30 ml PO Q6H PRN PRN Reason: Heartburn/Nausea Benztropine Mesylate (Benztropine Mesylate 1 Mg Tablet) 1 mg PO BID [facility] Last Admin: 04/10/24 09:20 Dose: 1 mg Diphenhydramine HCl (Diphenhydramine Hcl 25 Mg Capsule) 25 mg PO Q4H PRN PRN Reason: Itching Last Admin: 04/07/24 20:58 Dose: 25 mg Haloperidol (Haloperidol 5 Mg Tablet) 5 mg PO DAILY [facility] Last Admin: 04/10/24 09:20 Dose: 5 mg Haloperidol (Haloperidol 5 Mg Tablet) 10 mg PO BEDTIME REPLACED [facility] Last Admin: 04/09/24 20:14 Dose: 10 mg Magnesium Hydroxide (Milk Of Magnesia 30 Ml Oral.Susp) 30 ml PO DAILY PRN PRN Reason: Constipation Multi-Ingred Cream/Lotion/Oil/Oint (Mineral Oil/Petrolatum,White 106 Gm Tube) 1 appl TOPICAL Q2H PRN; Protocol PRN Reason: affected areas of dry skin Nicotine Polacrilex (Nicotine Polacrilex 2 Mg Gum) 4 mg BUCCAL Q2H PRN PRN Reason: Nicotine Cravings Olanzapine (Olanzapine 5 Mg Tablet) 5 mg PO Q4H PRN PRN Reason: agitation Last Admin: 03/24/24 20:09 Dose: 5 mg Trazodone HCl (Trazodone Hcl 100 Mg Tablet) 100 mg PO BEDTIME REPLACED [facility] Last Admin: 04/09/24 20:14 Dose: 100 mg Trazodone HCl (Trazodone Hcl 50 Mg Tablet) 50 mg PO BEDTIME PRN PRN Reason: Sleep Last Admin: 04/01/24 21:44 Dose: 50 mg Allergies Allergies Allergy/AdvReac Type Severity Reaction Status Date / Time No Known Allergies Allergy Verified 02/25/24 21:07 Assessment & Plan Assessment & Plan (1) Schizophrenia: Status: Acute Code(s): F20.9 - Schizophrenia, unspecified Plan Elderly Norwegian female with a long history of psychosis and chronic homelessness referred from [facility] for exacerbation of psychosis and lice infestation due to self neglect. Plan 1. Continue with Haldol 5 mg in the morning and 10 mg at bedtime. 2. Contact precautions were discontinued on April 10 since there was no evidence of lice infestation. 3. Cogentin was increased to 1 mg p.o. b.i.d. to target EPS. 4. Waiting for placement since the patient now is ready for discharge. Reason for continued inpatient stay Substantial Risk for: inability to function, rapid decompensation and med/psych decompensation Time Spent With Patient Time: Total time managing care of this patient today __20__ minutes.
[2024-04-10] MEDS: HaloperidoL 5 MG TABLET 10 MG PO (19:53)
[2024-04-10] MEDS: traZODone HCL 100 MG TABLET PO (19:54)
[2024-04-10 20:00] VITALS: BP 120/70; PULSE 79; TEMP 36.5; O2SAT 96
[2024-04-11 08:33] VITALS: BP 117/75; PULSE 90; RESP 18; TEMP 37; O2SAT 97
[2024-04-11] MEDS: Benztropine Mesylate 1 MG TABLET PO ×2 (08:36→20:27)
[2024-04-11] MEDS: HaloperidoL 5 MG TABLET PO (08:37)
--- NOTE | 2024-04-11 13:03 | HO.PSYCHPN ---
Subjective Subjective Date of Service: 04/11/24 Reason For Visit: Unspecified Psychotic Disorder Subjective Notes: Conditional Voluntary Interim History: The nursing staff reported the patient had been off contact precautions now she is off lice. The health and social care teacher will contact with your team for discharge. On interview the patient denies new symptoms, attention seeking. Compliant with treatment. Mental Status Exam Mental Status Exam Patient Appearance: Appropriate Patient Orientation: Person and Situation Level of Consciousness: Awake Patient Behavior: Guarded and Passive Mood Description: Withdrawn Affect Description: Constricted Patient Cognition Impaired: Yes Ability to Follow Directions: Good Speech Pattern: Clear Hallucinations: None Delusions: Paranoid Ideation Thought Process: Distracted and Slowed Thinking Thought Content: positive for [place] and positive for Poverty of Content Judgement: Poor Diagnostics Vital Signs (24Hr): Vital Signs - 24 hr 04/10/24 20:00 04/11/24 08:33 Temperature 97.7 F 98.6 F Pulse Rate 79 90 Respiratory Rate 18 Blood Pressure 120/70 117/75 Pulse Oximetry 96 97 Oxygen Delivery Method Room Air BMI result Body Mass Index 32.6 Labs 04/09/24 15:11 04/09/24 15:11 Labs: Laboratory Results - last 48 hr 04/09/24 15:11 WBC 5.6 RBC 4.85 Hgb 12.1 Hct 37.7 MCV 77.7 L MCH 24.9 L MCHC 32.1 RDW 15.2 Plt Count 296 MPV 9.0 L Immature Gran % (Auto) 0.4 Neut % (Auto) 69.2 Lymph % (Auto) 15.6 L [place] % (Auto) 12.0 H Eos % (Auto) 2.3 Baso % (Auto) 0.5 Lymph # (Auto) 0.9 L [place] # (Auto) 0.7 Eos # (Auto) 0.1 Baso # (Auto) 0.0 Abs Immat Gran (auto) 0.02 Absolute Neuts (auto) 3.9 Absolute Nucleated RBC 0.000 Nucleated RBC % (auto) 0.0 Sodium 140 Potassium 3.7 Chloride 109 H Carbon Dioxide 24 Anion Gap 11 L BUN 22 H Creatinine 0.59 Estim Creat Clear Calc 65.5 Estimated GFR > 60 Random Glucose 86 Calcium 8.6 Total Bilirubin 0.5 AST 63 H ALT 26 Alkaline Phosphatase 64 Total Creatine Kinase 792 H Total Protein 6.1 L Albumin 3.2 L Medications Medications Current Medications Acetaminophen (Acetaminophen 325 Mg Tablet) 650 mg PO Q6H PRN PRN Reason: Headache/Pain Mild Scale (1-3) Last Admin: 04/06/24 11:09 Dose: 650 mg Al Hydroxide/Mg Hydroxide (Magnesium Hydrox/Alum Hydrox 30 Ml Oral.Susp) 30 ml PO Q6H PRN PRN Reason: Heartburn/Nausea Benztropine Mesylate (Benztropine Mesylate 1 Mg Tablet) 1 mg PO BID [facility] Last Admin: 04/11/24 08:36 Dose: 1 mg Diphenhydramine HCl (Diphenhydramine Hcl 25 Mg Capsule) 25 mg PO Q4H PRN PRN Reason: Itching Last Admin: 04/07/24 20:58 Dose: 25 mg Haloperidol (Haloperidol 5 Mg Tablet) 5 mg PO DAILY [facility] Last Admin: 04/11/24 08:37 Dose: 5 mg Haloperidol (Haloperidol 5 Mg Tablet) 10 mg PO BEDTIME [facility] Last Admin: 04/10/24 19:53 Dose: 10 mg Magnesium Hydroxide (Milk Of Magnesia 30 Ml Oral.Susp) 30 ml PO DAILY PRN PRN Reason: Constipation Multi-Ingred Cream/Lotion/Oil/Oint (Mineral Oil/Petrolatum,White 106 Gm Tube) 1 appl TOPICAL Q2H PRN; Protocol PRN Reason: affected areas of dry skin Nicotine Polacrilex (Nicotine Polacrilex 2 Mg Gum) 4 mg BUCCAL Q2H PRN PRN Reason: Nicotine Cravings Olanzapine (Olanzapine 5 Mg Tablet) 5 mg PO Q4H PRN PRN Reason: agitation Last Admin: 03/24/24 20:09 Dose: 5 mg Trazodone HCl (Trazodone Hcl 100 Mg Tablet) 100 mg PO BEDTIME [facility] Last Admin: 04/10/24 19:54 Dose: 100 mg Trazodone HCl (Trazodone Hcl 50 Mg Tablet) 50 mg PO BEDTIME PRN PRN Reason: Sleep Last Admin: 04/01/24 21:44 Dose: 50 mg Allergies Allergies Allergy/AdvReac Type Severity Reaction Status Date / Time No Known Allergies Allergy Verified 02/25/24 21:07 Assessment & Plan Assessment & Plan (1) Schizophrenia: Status: Acute Code(s): F20.9 - Schizophrenia, unspecified Plan Elderly [place] Citizen female with a long history of psychosis and chronic homelessness referred from [facility] for exacerbation of psychosis and lice infestation due to self neglect. Plan 1. Continue with Haldol 5 mg in the morning and 10 mg at bedtime. 2. Contact precautions were discontinued on April 10 since there was no evidence of lice infestation. 3. Cogentin was increased to 1 mg p.o. b.i.d. to target EPS. 4. Waiting for placement since the patient now is ready for discharge. Reason for continued inpatient stay Substantial Risk for: inability to function, rapid decompensation and med/psych decompensation Time Spent With Patient Time: Total time managing care of this patient today __20__ minutes.
[2024-04-11 20:00] VITALS: BP 116/76; PULSE 82; TEMP 36.8; O2SAT 97
[2024-04-11] MEDS: traZODone HCL 100 MG TABLET PO (20:27)
[2024-04-11] MEDS: HaloperidoL 5 MG TABLET 10 MG PO (20:27)
[2024-04-12 08:00] VITALS: BP 127/76; PULSE 91; RESP 18; TEMP 36.4; O2SAT 96
[2024-04-12] MEDS: HaloperidoL 5 MG TABLET PO (08:53)
[2024-04-12] MEDS: Benztropine Mesylate 1 MG TABLET PO ×2 (08:53→20:39)
--- NOTE | 2024-04-12 11:52 | HO.PSYCHPN ---
Subjective Subjective Date of Service: 04/12/24 Reason For Visit: Unspecified Psychotic Disorder Subjective Notes: Conditional Voluntary Interim History: The nursing staff reported the patient had been pleasant, cooperative he took her medications. On interview the patient denies new symptoms, waiting for placement. Mental Status Exam Mental Status Exam Patient Appearance: Appropriate Patient Orientation: Person and Situation Level of Consciousness: Awake and Appropriate Patient Behavior: Guarded and Passive Mood Description: Withdrawn Affect Description: Constricted Patient Cognition Impaired: Yes Ability to Follow Directions: Fair Speech Pattern: Clear Hallucinations: None Delusions: Not Present Thought Process: Distracted and Slowed Thinking Thought Content: positive for [place] and positive for Poverty of Content Judgement: Fair Diagnostics Vital Signs (24Hr): Vital Signs - 24 hr 04/11/24 20:00 04/12/24 08:00 Temperature 98.2 F 97.5 F Pulse Rate 82 91 Respiratory Rate 18 Blood Pressure 116/76 127/76 Pulse Oximetry 97 96 Oxygen Delivery Method Room Air Room Air BMI result Body Mass Index 32.6 Labs 04/09/24 15:11 04/09/24 15:11 Medications Medications Current Medications Acetaminophen (Acetaminophen 325 Mg Tablet) 650 mg PO Q6H PRN PRN Reason: Headache/Pain Mild Scale (1-3) Last Admin: 04/06/24 11:09 Dose: 650 mg Al Hydroxide/Mg Hydroxide (Magnesium Hydrox/Alum Hydrox 30 Ml Oral.Susp) 30 ml PO Q6H PRN PRN Reason: Heartburn/Nausea Benztropine Mesylate (Benztropine Mesylate 1 Mg Tablet) 1 mg PO BID [facility] Last Admin: 04/12/24 08:53 Dose: 1 mg Diphenhydramine HCl (Diphenhydramine Hcl 25 Mg Capsule) 25 mg PO Q4H PRN PRN Reason: Itching Last Admin: 04/07/24 20:58 Dose: 25 mg Haloperidol (Haloperidol 5 Mg Tablet) 5 mg PO DAILY [facility] Last Admin: 04/12/24 08:53 Dose: 5 mg Haloperidol (Haloperidol 5 Mg Tablet) 10 mg PO BEDTIME [facility] Last Admin: 04/11/24 20:27 Dose: 10 mg Magnesium Hydroxide (Milk Of Magnesia 30 Ml Oral.Susp) 30 ml PO DAILY PRN PRN Reason: Constipation Multi-Ingred Cream/Lotion/Oil/Oint (Mineral Oil/Petrolatum,White 106 Gm Tube) 1 appl TOPICAL Q2H PRN; Protocol PRN Reason: affected areas of dry skin Nicotine Polacrilex (Nicotine Polacrilex 2 Mg Gum) 4 mg BUCCAL Q2H PRN PRN Reason: Nicotine Cravings Olanzapine (Olanzapine 5 Mg Tablet) 5 mg PO Q4H PRN PRN Reason: agitation Last Admin: 03/24/24 20:09 Dose: 5 mg Trazodone HCl (Trazodone Hcl 100 Mg Tablet) 100 mg PO BEDTIME [facility] Last Admin: 04/11/24 20:27 Dose: 100 mg Trazodone HCl (Trazodone Hcl 50 Mg Tablet) 50 mg PO BEDTIME PRN PRN Reason: Sleep Last Admin: 04/01/24 21:44 Dose: 50 mg Allergies Allergies Allergy/AdvReac Type Severity Reaction Status Date / Time No Known Allergies Allergy Verified 02/25/24 21:07 Assessment & Plan Assessment & Plan (1) Schizophrenia: Status: Acute Code(s): F20.9 - Schizophrenia, unspecified Plan Elderly [place]ine[place] female with a long history of psychosis and chronic homelessness referred from [facility] for exacerbation of psychosis and lice infestation due to self neglect. Plan 1. Continue with Haldol 5 mg in the morning and 10 mg at bedtime. 2. Contact precautions were discontinued on April 10 since there was no evidence of lice infestation. 3. Cogentin was increased to 1 mg p.o. b.i.d. to target EPS. 4. Waiting for placement since the patient now is ready for discharge. Reason for continued inpatient stay Substantial Risk for: inability to function, rapid decompensation and med/psych decompensation Time Spent With Patient Time: Total time managing care of this patient today __20__ minutes.
[2024-04-12 20:00] VITALS: BP 123/72; PULSE 73; RESP 16; TEMP 36.4; O2SAT 98
[2024-04-12] MEDS: HaloperidoL 5 MG TABLET 10 MG PO (20:39)
[2024-04-12] MEDS: traZODone HCL 100 MG TABLET PO (20:39)
[2024-04-13 08:15] VITALS: BP 116/68; PULSE 92; RESP 16; TEMP 36.8; O2SAT 96
[2024-04-13] MEDS: Benztropine Mesylate 1 MG TABLET PO ×2 (08:18→20:54)
[2024-04-13] MEDS: HaloperidoL 5 MG TABLET PO (08:18)
--- NOTE | 2024-04-13 16:29 | P.PNPSI_ITS ---
Subjective Subjective Date of Service: 04/13/24 Reason For Visit: Unspecified Psychotic Disorder Subjective Notes: Conditional Voluntary Interim History: The nursing staff reported the patient had been compliant with treatment, she had been seen in the common areas encouraged to participate on common meals and groups. The occupational therapist reported that she has poor motor planning and she is going to be encouraged to attend to groups. On interview the patient denies new symptoms, waiting for placement. Mental Status Exam Mental Status Exam Patient Appearance: Appropriate Patient Orientation: Person and Situation Level of Consciousness: Awake Patient Behavior: Guarded Mood Description: Calm Affect Description: Constricted Patient Cognition Impaired: Yes Ability to Follow Directions: Good Speech Pattern: Clear Hallucinations: None Delusions: Ideas of Reference Thought Process: Distracted and Slowed Thinking Thought Content: positive for [place] and positive for Poverty of Content Judgement: Fair Diagnostics Vital Signs (24Hr): Vital Signs - 24 hr 04/12/24 20:00 04/13/24 08:15 Temperature 97.6 F 98.2 F Pulse Rate 73 92 Respiratory Rate 16 16 Blood Pressure 123/72 116/68 Pulse Oximetry 98 96 Oxygen Delivery Method Room Air Room Air BMI result Body Mass Index 32.6 Labs 04/09/24 15:11 04/09/24 15:11 Medications Medications Current Medications Acetaminophen (Acetaminophen 325 Mg Tablet) 650 mg PO Q6H PRN PRN Reason: Headache/Pain Mild Scale (1-3) Last Admin: 04/06/24 11:09 Dose: 650 mg Al Hydroxide/Mg Hydroxide (Magnesium Hydrox/Alum Hydrox 30 Ml Oral.Susp) 30 ml PO Q6H PRN PRN Reason: Heartburn/Nausea Benztropine Mesylate (Benztropine Mesylate 1 Mg Tablet) 1 mg PO BID [facility] Last Admin: 04/13/24 08:18 Dose: 1 mg Diphenhydramine HCl (Diphenhydramine Hcl 25 Mg Capsule) 25 mg PO Q4H PRN PRN Reason: Itching Last Admin: 04/07/24 20:58 Dose: 25 mg Haloperidol (Haloperidol 5 Mg Tablet) 5 mg PO DAILY [facility] Last Admin: 04/13/24 08:18 Dose: 5 mg Haloperidol (Haloperidol 5 Mg Tablet) 10 mg PO BEDTIME [facility] Last Admin: 04/12/24 20:39 Dose: 10 mg Magnesium Hydroxide (Milk Of Magnesia 30 Ml Oral.Susp) 30 ml PO DAILY PRN PRN Reason: Constipation Multi-Ingred Cream/Lotion/Oil/Oint (Mineral Oil/Petrolatum,White 106 Gm Tube) 1 appl TOPICAL Q2H PRN; Protocol PRN Reason: affected areas of dry skin Nicotine Polacrilex (Nicotine Polacrilex 2 Mg Gum) 4 mg BUCCAL Q2H PRN PRN Reason: Nicotine Cravings Olanzapine (Olanzapine 5 Mg Tablet) 5 mg PO Q4H PRN PRN Reason: agitation Last Admin: 03/24/24 20:09 Dose: 5 mg Trazodone HCl (Trazodone Hcl 100 Mg Tablet) 100 mg PO BEDTIME [facility] Last Admin: 04/12/24 20:39 Dose: 100 mg Trazodone HCl (Trazodone Hcl 50 Mg Tablet) 50 mg PO BEDTIME PRN PRN Reason: Sleep Last Admin: 04/01/24 21:44 Dose: 50 mg Allergies Allergies Allergy/AdvReac Type Severity Reaction Status Date / Time No Known Allergies Allergy Verified 02/25/24 21:07 Assessment & Plan Assessment & Plan (1) Schizophrenia: Status: Acute Code(s): F20.9 - Schizophrenia, unspecified Plan Elderly Sw[place] female with a long history of psychosis and chronic homelessness referred from [facility] for exacerbation of psychosis and lice infestation due to self neglect. Plan 1. Continue with Haldol 5 mg in the morning and 10 mg at bedtime. 2. Contact precautions were discontinued on April 10 since there was no evidence of lice infestation. 3. Cogentin was increased to 1 mg p.o. b.i.d. to target EPS. 4. Waiting for placement since the patient now is ready for discharge. According to the long term care social worker, she will be discharged tomorrow. Reason for continued inpatient stay Substantial Risk for: inability to function, rapid decompensation and med/psych decompensation Time Spent With Patient Time: Total time managing care of this patient today __20__ minutes.
[2024-04-13 20:00] VITALS: BP 145/84; PULSE 78; RESP 16; TEMP 36.8; O2SAT 98
[2024-04-13] MEDS: HaloperidoL 5 MG TABLET 10 MG PO (20:53)
[2024-04-13] MEDS: traZODone HCL 100 MG TABLET PO (20:54)
--- NOTE | 2024-04-14 09:09 | P.DS_ITS ---
DS: Providers Provider Date of Service: 04/14/24 Date of admission: 02/25/24 19:47 Date of discharge: 04/14/24 Primary care physician: Unknown Physician Consults: 02/25/24 21:09 Consult to Hospitalist Routine Comment: Consulting Provider: [facility] Hospitalists Reason For Exam: New admit. H&P 03/02/24 10:04 Consult to Wound Care Routine Reason for consultation: lesion on breast Has provider been notified: No 03/02/24 13:17 Consult to Infectious Diseases Routine Consulting Provider: [facility] Reason for consultation: Patient with lice, already treated but still with Has provider been notified: Yes 03/27/24 10:58 Consult to Hospitalist Routine Comment: Consulting Provider: [facility] Hospital[facility] Reason For Exam: finished tx of lice and scabies, clearance for ... 04/03/24 10:58 Consult to Hospitalist Routine Comment: Consulting Provider: [facility] Hospitalists Reason For Exam: clearance of lice for placement Attending physician on discharge: Justin Garcia DS: Diagnosis Discharge Diagnosis (1) Schizophrenia: Status: Acute DS: Medications Discharge Medications Home Medications: Previous Rx's ?Medication ?Instructions ?Recorded benztropine 1 mg tablet 1 mg PO BID 30 days #60 tabs 04/11/24 haloperidol 5 mg tablet 5 mg PO DAILY 30 days #30 tabs 04/11/24 haloperidol 5 mg tablet 10 mg (2 x 5 mg) PO BEDTIME 30 04/11/24 days #60 tabs trazodone 100 mg tablet 100 mg PO BEDTIME 30 days #30 tabs 04/11/24 white petrolatum-mineral oil 1 appl topical Q2H PRN affected 04/11/24 topical cream (Dermacerin topical areas of dry skin #454 grams cream) Mental Status Exam Mental Status Exam Patient Appearance: Appropriate Patient Orientation: Person and Situation Level of Consciousness: Awake and Appropriate Patient Behavior: Guarded and Passive Mood Description: Withdrawn Affect Description: Constricted Patient Cognition Impaired: Yes Ability to Follow Directions: Good Speech Pattern: Clear Hallucinations: None Delusions: Not Present Thought Process: Distracted and Slowed Thinking Thought Content: positive for [place] and positive for Poverty of Content Judgement: Fair Data Data Completed and Pending Completed studies during hospitalization [Text1]: 04/09/24 15:11 WBC 5.6 RBC 4.85 Hgb 12.1 Hct 37.7 MCV 77.7 L MCH 24.9 L MCHC 32.1 RDW 15.2 Plt Count 296 MPV 9.0 L Immature Gran % (Auto) 0.4 Neut % (Auto) 69.2 Lymph % (Auto) 15.6 L [place] % (Auto) 12.0 H Eos % (Auto) 2.3 Baso % (Auto) 0.5 Lymph # (Auto) 0.9 L [place] # (Auto) 0.7 Eos # (Auto) 0.1 Baso # (Auto) 0.0 Abs Immat Gran (auto) 0.02 Absolute Neuts (auto) 3.9 Absolute Nucleated RBC 0.000 Nucleated RBC % (auto) 0.0 Sodium 140 Potassium 3.7 Chloride 109 H Carbon Dioxide 24 Anion Gap 11 L BUN 22 H Creatinine 0.59 Estim Creat Clear Calc 65.5 Estimated GFR > 60 Random Glucose 86 Calcium 8.6 Total Bilirubin 0.5 AST 63 H ALT 26 Alkaline Phosphatase 64 Total Creatine Kinase 792 H Total Protein 6.1 L Albumin 3.2 L DS: Summary Hospital Course Hospital Course: The patient is a 79-year-old female, from [place], chronically homeless with a past history of schizophrenia who was referred to the emergency room of another hospital in the [facility] from her special care hospital after she was been grossly disorganized unable to take care of herself infested with lice refusing all care and hygiene. The patient was rushed to the ED, treated with ivermectin, assessed by Psychiatry and care team and referring to this facility for psychiatric stabilization. Please see the HPI of the admission note for further details. On intake, the patient was very paranoid, refused to engage in any conversations and she was infested with lice on her head and body. Initially she refused any care or treatment for her lice. She was started on Zyprexa at the emergency room of [facility] we continued it. The patient was a very poor historian and we needed to gather more collateral information. [facility] for in the [facility] was contacted, they knew the patient very well and apparently she responded fairly well to Haldol in the past. Also she is chronically noncompliant and homeless and she had been living in shelters for the last years. We decided to change her Zyprexa to Haldol titrated up to 5 mg in the morning and 10 mg at night. The patient was compliant with the Haldol and eventually she was more cooperative, she agreed to have permethrin and shower. We tried to do this procedure several times at least 3 and finally she was free of lice. The patient was also assessed by occupational therapist and physical therapy and she is able to do her own ADL less even though that she is very attention seeking. Since there were no safety concerns discharge planning was discussed to be transferred back to her regular special care hospital with ancillary services in the [facility]. She adamantly denies suicidal or homicidal thoughts and she had been fully compliant with treatment., Time spent discussing smoking cessation with patient: 3 to 10 minutes Status at Discharge Cognitive/behavioral status at discharge: Impaired at baseline Functional status at discharge: independent ambulation Overall status at discharge: patient is back to baseline Time Spent with Patient Time attestation: Total time managing care of this patient today __30__ minutes. Time spent: Less than 30 minutes Discharge Plan Discharge Anticipated Discharge Date/Time: 04/14/24 09:30 Patient Disposition: Prison Discharge Diagnosis: Schizophrenia Chronic homelessness Referrals: Dr. Watson Sarmiento (Psychiatrist) [Other] - 04/19/24 10:00 am (You will see in person at the [facility]. will see you at the special care hospital on wednesday04/19/24 between 10:00 AM and 12:00 PM. Please be available and open to conversation with the provider) Discharge Medications: New haloperidol 5 mg Tablet 10 mg PO BEDTIME 30 Days Qty: 60 1RF haloperidol 5 mg Tablet 5 mg PO DAILY 30 Days Qty: 30 1RF trazodone 100 mg Tablet 100 mg PO BEDTIME 30 Days Qty: 30 1RF benztropine 1 mg Tablet 1 mg PO BID 30 Days Qty: 60 1RF Dermacerin Cream 1 appl topical Q2H PRN (Reason: affected areas of dry skin) Qty: 454 1RF Protocol: Apply to: Apply to: affected areas Discharge Orders: Discharge Order (Routine); Ordered 04/14/24 Ordered By: Justin Garcia Diet: Advance to usual diet Activity on Discharge: As tolerated Stand Alone Forms: Patient Portal Discharge page Print Language: Sudanese Care Plan Goals: Care plan goals achieved in this admission Health Concerns: Continue with outpatient providers such as PCP and other specialists. Plan of Treatment: Continue psychiatric treatment as an outpatient Assessment: The patient is an elderly Martiniquais female with a past history of schizophrenia, chronic homelessness and poor social support who was transferred from [facility] after the special care hospital Center today ED since she was grossly disorganized unable to take care of herself with a lice infestation that required several courses of permethrin. At this moment the patient is fully compliant with treatment, lice free and with no safety concerns. Ready to go back to her regular housing arrangement.
[2024-04-14] MEDS: Benztropine Mesylate 1 MG TABLET PO (09:12)
[2024-04-14] MEDS: HaloperidoL 5 MG TABLET PO (09:12)
== END 2024-04-14 11:32 | disposition home or self-care (01) | DRG 885 ==
PROVIDERS: Registered Nurse; Social Worker; Admitting Provider Psychiatry & Neurology Psychiatry; Visit Provider Psychiatry & Neurology Psychiatry
DX: F20.9 Schizophrenia, unspecified (principal); Z59.02 Unsheltered homelessness; B85.4 Mixed pediculosis and phthiriasis; R62.7 Adult failure to thrive; C50.912 Malignant neoplasm of unspecified site of left female breast; Z91.148 Patient's other noncompliance with medication regimen for other reason; Z91.199 Patient's noncompliance with other medical treatment and regimen due to unspecified reason; Z79.899 Other long term (current) drug therapy
CPT/HCPCS: 36415; 80053; 80061; 82550; 85025

== ENCOUNTER → 2024-02-25 19:47 | Outpatient (BNV) | payer OTHER, SELFPAY | PROVIDERS: Admitting Provider Psychiatry & Neurology Psychiatry; Visit Provider Internal Medicine | DX: F39 Unspecified mood [affective] disorder (principal) | CPT/HCPCS: 99221 ==

== ENCOUNTER → 2024-02-25 19:47 | Outpatient (BNV) | payer MEDICARE, OTHER, MEDICAID, SELFPAY | PROVIDERS: Admitting Provider Psychiatry & Neurology Psychiatry; Visit Provider Student in an Organized Health Care Education/Training Program | DX: Z02.2 Encounter for examination for admission to residential institution (principal) | CPT/HCPCS: 99429 ==

== ENCOUNTER → 2024-02-25 19:47 | Outpatient (BNV) | payer MEDICARE, OTHER, MEDICAID, SELFPAY | PROVIDERS: Admitting Provider Psychiatry & Neurology Psychiatry; Visit Provider Psychiatry & Neurology Psychiatry | DX: F39 Unspecified mood [affective] disorder (principal); R62.7 Adult failure to thrive | CPT/HCPCS: 90792; 99232 ==

== ENCOUNTER → 2024-02-25 19:47 | Outpatient (BNV) | payer MEDICARE, OTHER, MEDICAID, SELFPAY | PROVIDERS: Admitting Provider Psychiatry & Neurology Psychiatry; Visit Provider Psychiatry & Neurology Psychiatry | DX: F39 Unspecified mood [affective] disorder (principal) | CPT/HCPCS: 99231; 99232 ==